=== PATIENT | female | born 1955 | race Caucasian/White ===

== ENCOUNTER → 2019-05-23 | Outpatient (CLI) | payer SELFPAY | PROVIDERS: Family Provider Internal Medicine; PCP Internal Medicine; Visit Provider Internal Medicine Cardiovascular Disease | DX: R94.39 Abnormal result of other cardiovascular function study (principal); Z79.01 Long term (current) use of anticoagulants | CPT/HCPCS: 76770; 80048; 80053; 85025; 85610; 86850; 86900; 86901 ==

== ENCOUNTER 2019-07-01 16:48 | Emergency (ER) | payer MEDICARE, SELFPAY ==
[2019-07-01 16:50] VITALS: BP 163/80; PULSE 61; RESP 14; O2SAT 95; BMI 37.8
--- NOTE | 2019-07-01 17:01 | ECG_ITS ---
Measurements Intervals [place] Rate: 57 P: 27 GA: 166 QRS: 12 QRSD: 103 T: 73 QT: 459 QTc: 449 SINUS BRADYCARDIA POSSIBLE ANTERIOR MYOCARDIAL INFARCTION , PROBABLY OLD [30 ms Q WAVE IN V3/V4, OR R < 0.2 mV IN V4] Compared to ECG 03/08/2019 12:07:22 Sinus rhythm no longer present Myocardial infarct finding still present Electronically Signed On 07-02-2019 18:32:30 [employer] DIRECTOR by Celena Mcgraw M.D. [email or web address]
--- NOTE | 2019-07-01 17:11 | ED_ITS ---
Entered by Brianna Gandara, acting as scribe for HPI - Altered Mental Status General: Chief Complaint: Altered Mental Status Stated Complaint: LOW BLOOD SUGAR Time Seen by Provider: 07/01/19 16:59 Source: patient Mode of arrival: EMS Limitations: altered mental status History of Present Illness: HPI narrative: 63 yo Female presents to ED with complaint of altered mental status. Pt was found down at home with altered mental status. Per EMS, patient's blood sugar was 50 upon their arrival. EMS reports patient complained of chest pains upon waking. When patient arrived to ED, her blood sugar was 55. Pt states she uses insulin to control her diabetes. MD complaint: altered mental status and confusion Onset (ago): unknown Context: diabetes Associated symptoms: Deny depression Treatments prior to arrival: glucose Review of Systems Const: Denies: fever, chills, body aches or change in appetite Eyes: Denies: blurry vision or eye discomfort ENMT: Denies: throat pain or dental pain Card: Denies: chest pain Resp: Denies: shortness of breath GI: Denies: abdominal pain, nausea, vomiting or diarrhea : Denies: painful urination Musc: Denies: neck pain or back pain Skin/Breast: Denies: rash Neuro: Reports: confusion; Denies: headache Psych: Denies: depression Jared/Lymph: Denies: easy bruising All/Imm: Denies: hives PFSH ED PFSH: Statuses (acute, chronic, etc) shown below reflect problem list status as previously entered and may not be historically accurate Medical History (Updated 07/01/19 @ 20:06 by Ramon Hardy MD) CAD (coronary artery disease) (Acute) Diabetes (Acute) HTN (hypertension) (Acute) Myocardial infarction (Acute) UTI (urinary tract infection) (Acute) Surgical History (Updated 07/01/19 @ 17:21 by Brianna Gandara) History of cholecystectomy (Acute) History of knee surgery (Acute) History of tubal ligation (Acute) Social History Smoking and tobacco status: former smoker Physical Exam Const: COMMON NORMALS: no apparent distress, oriented x3 and healthy appearing HENMT: COMMON NORMALS: normocephalic and head/scalp atraumatic HEAD & SCALP: normocephalic and atraumatic Eye: COMMON NORMALS: PERRL and EOMs intact bilaterally PUPIL: Yes PERRL Neck/C-Spine: COMMON NORMALS: full ROM and supple Chest: COMMONS NORMALS: inspection of chest normal and palpation of chest normal Resp: COMMON NORMALS: normal respiratory effort, no retractions, no use of accessory muscles and clear to auscultation bilaterally AUSCULTATION: clear to auscultation bilaterally Cardio: COMMON NORMALS: regular rate, regular rhythm and no murmurs RATE: regular rate RHYTHM: regular rhythm GI: COMMON NORMALS: normal to inspection, nondistended, normoactive bowel sounds, soft to palpation, non-tender and no masses PALPATION: Yes soft Extremity: COMMON NORMALS: normal to inspection and full ROM Neuro: COMMON NORMALS: oriented x3, moves all extremities and no focal motor deficits Psych: COMMON NORMALS: mental status grossly normal, thought process normal and cooperative THOUGHT PROCESS: normal thought process Skin: COMMON NORMALS: no rashes or lesions noted and no wounds GENERAL SKIN EXAM: no rashes or lesions noted Course Vital Signs: Vital signs: Vital Signs Pulse Rate 62 07/01/19 19:30 Respiratory Rate 16 07/01/19 19:30 Blood Pressure 156/84 07/01/19 19:30 Pulse Oximetry 95 07/01/19 19:30 MDM - Altered Mental Status MDM Narrative: Medical decision making narrative: Patient presents here with altered mental status likely due to hypoglycemia. Her blood sugar here is improved and has been stable and she is requesting discharge. Head CT is normal as well and has no signs of stroke. Patient is stable for discharge and is to follow-up with her primary care doctor in 3 to 5 days and return if worsening. Lab Data: Labs: Lab Results 07/01/19 07/01/19 07/01/19 Range/Units 17:45 17:49 19:52 WBC (4.0-10.0) 10^3/ uL RBC (4.1-5.3) 10^6/u L Hgb (11.5-15.3) g/dL Hct (37.0-47.0) % MCV (81-99) fL MCH (28.0-34.0) pg MCHC (30.0-36.0) g/dL RDW (12.1-15.1) % Plt Count (130-400) 10^3/c mm MPV (7.4-10.4) fL Neut % (Auto) % Lymph % (Auto) % Sutter % (Auto) % Eos % (Auto) % Baso % (Auto) % Neut # (Auto) (1.8-7.7) 10^3/u L Lymph # (Auto) (0.8-4.8) 10^3/u L Sutter # (Auto) (0.2-0.9) 10^3/u L Eos # (Auto) (0.0-0.8) 10^3/u L Baso # (Auto) (0.0-0.1) 10^3/u L Nucleated RBC % (a uto) % Nucleated RBCs # /100WBC Sodium 139 (136-145) mmol/L Potassium 3.3 L (3.5-5.1) mmol/L Chloride 101 (98-107) mmol/L Carbon Dioxide 24 (22-29) mmol/L Anion Gap 17.3 (5-19) BUN 27 H (8-23) mg/dL Creatinine 1.7 H (0.5-0.9) mg/dL GFR Calculation 30.6 L (90-130) mL/min Glucose 146 H (74-106) mg/dL POC Glucose 137 197 (70-110) mg/dL Calcium 10.8 H (8.5-10.5) mg/dL Total Bilirubin 0.3 (0.15-1.2) mg/dL AST 15 (0-32) U/L ALT 10 (0-33) U/L Alkaline Phosphata se 89 (35-105) IU/L Total Protein 7.4 (6.6-8.7) g/dL Albumin 4.3 (3.5-5.2) g/dL Globulin 3.1 (1.3-4.6) g/dL 07/01/19 Range/Units 19:57 WBC 7.8 (4.0-10.0) 10^3/ uL RBC 4.20 (4.1-5.3) 10^6/u L Hgb 12.2 (11.5-15.3) g/dL Hct 36.7 L (37.0-47.0) % MCV 87.4 (81-99) fL MCH 29.0 (28.0-34.0) pg MCHC 33.2 (30.0-36.0) g/dL RDW 12.2 (12.1-15.1) % Plt Count 247 (130-400) 10^3/c mm MPV 10.6 H (7.4-10.4) fL Neut % (Auto) 72.8 % Lymph % (Auto) 16.3 % Sutter % (Auto) 6.9 % Eos % (Auto) 2.6 % Baso % (Auto) 1.1 % Neut # (Auto) 5.7 (1.8-7.7) 10^3/u L Lymph # (Auto) 1.3 (0.8-4.8) 10^3/u L Sutter # (Auto) 0.5 (0.2-0.9) 10^3/u L Eos # (Auto) 0.2 (0.0-0.8) 10^3/u L Baso # (Auto) 0.1 (0.0-0.1) 10^3/u L Nucleated RBC % (a uto) 0 % Nucleated RBCs # 0.0 /100WBC Sodium (136-145) mmol/L Potassium (3.5-5.1) mmol/L Chloride (98-107) mmol/L Carbon Dioxide (22-29) mmol/L Anion Gap (5-19) BUN (8-23) mg/dL Creatinine (0.5-0.9) mg/dL GFR Calculation (90-130) mL/min Glucose (74-106) mg/dL POC Glucose (70-110) mg/dL Calcium (8.5-10.5) mg/dL Total Bilirubin (0.15-1.2) mg/dL AST (0-32) U/L ALT (0-33) U/L Alkaline Phosphata se (35-105) IU/L Total Protein (6.6-8.7) g/dL Albumin (3.5-5.2) g/dL Globulin (1.3-4.6) g/dL Imaging Data^: CT Head: Radiologist's impression: [address] [address] [address] Scan Report Signed Patient: SgChynaphil Mcclain #: [id number] : 8Acct#:[id number] Age/Sex: 63 / FADM Date: 07/01/19 Loc: ERRoom/Bed: Attending Dr: Ordering Provider/Ordering MD: Ramon Hardy MD Date of Service: 07/01/19 Procedure(s): CT head wo con* [id number] Accession Number(s): [id number] Report Number: [id number] PROCEDURE INFORMATION: Exam: CT Head Without Contrast Exam date and time: 07/01/2019 6:46 PM Age: 63 years old Clinical indication: Altered mental status/memory loss and syncope and collapse TECHNIQUE: Imaging protocol: Computed tomography of the head without contrast. Total DLP: 866.42 mGy-cm Radiation optimization: All CT scans at this facility use at least one of these dose optimization techniques: automated exposure control; mA and/or kV adjustment per patient size (includes targeted exams where dose is matched to clinical indication); or iterative reconstruction. COMPARISON: CT head wo con* [id number] 03/08/2019 3:01 PM FINDINGS: Brain: Moderate cortical volume loss. Mild stable hypodensities in supratentorial periventricular and subcortical white matter. No intracranial hemorrhage. Ventricles: Normal. No ventriculomegaly. Bones/joints: Unremarkable. No acute fracture. Sinuses: Visualized sinuses are unremarkable. No fluid levels. Mastoid air cells: Visualized mastoid air cells are well aerated. Soft tissues: Unremarkable. CT/CT head wo con* [id number] IMPRESSION: 1. No acute intracranial abnormality. 2. Stable mild microangiopathy. 3. Moderate cortical volume loss. Radiation Dose CTDIVOL = (mGy): DLP = 866.42 (mGy-cm) Dictated By:Mike Stovall Signed By:Mike StovallSigned Date/Time:07/01/191917 DD/ 15 EKG Data^: EKG 1: Attestation: I personally reviewed and interpreted this EKG as follows: EKG interpretation date: 07/01/19 EKG interpretation time: 17:57 Interpretation: Sinus bradycardia heart rate [address] or T wave abnormalities Discharge Plan Discharge Patient Disposition: Home, Self-Care Clinical Impression: Hypoglycemia Altered mental status Qualifiers: Altered mental status type: unspecified Qualified Code(s): R41.82 - Altered mental status, unspecified Condition: Stable Discharge Orders: Discharge Order (Routine); Ordered 07/01/19 Ordered By: Ramon Hardy Referrals: Chandu Kapadia MD [Primary Care Provider] - 4-7 days Discharge Diet: Advance as tolerated Discharge Activity: Resume usual activity Patient Instructions: Diabetic Hypoglycemia (ED) Discharge Date/Time: 07/01/19 20:14 Coding Level of Care Code ED Editing Internship for Chg Fwd Exam Problem Focused The documentation recorded by the Juliocesar mcduffie Carmen, accurately reflects the service I personally performed and the decisions made by Hayley bell Korby, MD Jul 01, 2019 16:48
[2019-07-01 17:53] LABS: Glucose Point of Care 137 mg/dL (70-110)
[2019-07-01 18:10] LABS: Alanine Aminotransferase 10 U/L (0-33); Albumin Level 4.3 g/dL (3.5-5.2); Alkaline Phosphatase 89 IU/L (35-105); Anion Gap 17.3 (5-19); Aspartate Amino Transferase 15 U/L (0-32); Blood Urea Nitrogen 27 mg/dL (8-23); Calcium 10.8 mg/dL (8.5-10.5); Carbon Dioxide 24 mmol/L (22-29); Chloride 101 mmol/L (98-107); Globulin 3.1 g/dL (1.3-4.6); Glomerular Filtration Rate 30.6 mL/min (90-130); Glucose 146 mg/dL (74-106); Potassium 3.3 mmol/L (3.5-5.1); Sodium 139 mmol/L (136-145); Total Bilirubin 0.3 mg/dL (0.15-1.2); Total Protein 7.4 g/dL (6.6-8.7)
[2019-07-01 19:30] VITALS: BP 156/84; PULSE 62; RESP 16; O2SAT 95
[2019-07-01 19:56] LABS: Glucose Point of Care 197 mg/dL (70-110)
[2019-07-01 20:03] LABS: Basophils # 0.1 10^3/uL (0.0-0.1); Basophils % 1.1 %; Eosinophils # 0.2 10^3/uL (0.0-0.8); Eosinophils % 2.6 %; Hematocrit 36.7 % (37.0-47.0); Hemoglobin 12.2 g/dL (11.5-15.3); Lymphocytes # 1.3 10^3/uL (0.8-4.8); Lymphocytes % 16.3 %; Mean Corpuscular HGB Conc 33.2 g/dL (30.0-36.0); Mean Corpuscular Volume 87.4 fL (81-99); Mean Platelet Volume 10.6 fL (7.4-10.4); Monocytes # 0.5 10^3/uL (0.2-0.9); Monocytes % 6.9 %; Neutrophils # 5.7 10^3/uL (1.8-7.7); Neutrophils % 72.8 %; Nucleated Red Blood Cells % 0 %; Platelet Count 247 10^3/cmm (130-400); Red Cell Distribution Width 12.2 % (12.1-15.1); White Blood Count 7.8 10^3/uL (4.0-10.0)
[2019-07-01 20:29] VITALS: BP 193/104; PULSE 68; RESP 20; O2SAT 96
== END 2019-07-01 20:14 | disposition home or self-care (01) ==
PROVIDERS: Emergency Provider Emergency Medicine; Family Provider Internal Medicine; PCP Internal Medicine
DX: E11.649 Type 2 diabetes mellitus with hypoglycemia without coma (principal); I25.10 Atherosclerotic heart disease of native coronary artery without angina pectoris; I10 Essential (primary) hypertension; I25.2 Old myocardial infarction; Z87.891 Personal history of nicotine dependence
CPT/HCPCS: 36415; 36416; 70450; 80053; 82962; 85025; 93005; 99282; 99283; J7799

== ENCOUNTER → 2021-05-18 11:05 | Outpatient (BNVA) | payer MEDICARE, SELFPAY | PROVIDERS: Family Provider Internal Medicine; PCP Internal Medicine; Visit Provider Nurse Practitioner Family | DX: I10 Essential (primary) hypertension (principal); E11.9 Type 2 diabetes mellitus without complications; I25.10 Atherosclerotic heart disease of native coronary artery without angina pectoris | CPT/HCPCS: 80053; 80061; 83036 ==

== ENCOUNTER → 2021-08-18 10:52 | Outpatient (BNVA) | payer MEDICARE, SELFPAY | PROVIDERS: Family Provider Internal Medicine; PCP Nurse Practitioner Family; Visit Provider Nurse Practitioner Family | DX: E11.9 Type 2 diabetes mellitus without complications (principal); E78.00 Pure hypercholesterolemia, unspecified; I10 Essential (primary) hypertension; K21.9 Gastro-esophageal reflux disease without esophagitis; N18.4 Chronic kidney disease, stage 4 (severe) | CPT/HCPCS: 80053; 80061; 83036 ==

== ENCOUNTER → 2021-11-21 08:58 | Outpatient (BNVA) | payer MEDICARE, SELFPAY | PROVIDERS: Family Provider Internal Medicine; PCP Nurse Practitioner Family; Visit Provider Nurse Practitioner Family | DX: E11.9 Type 2 diabetes mellitus without complications (principal); E78.00 Pure hypercholesterolemia, unspecified; I10 Essential (primary) hypertension; N18.4 Chronic kidney disease, stage 4 (severe); I25.10 Atherosclerotic heart disease of native coronary artery without angina pectoris | CPT/HCPCS: 80053; 80061; 83036; 85025 ==

== ENCOUNTER → 2022-02-21 12:24 | Outpatient (BNVA) | payer MEDICARE, SELFPAY | PROVIDERS: Family Provider Internal Medicine; PCP Nurse Practitioner Family; Visit Provider Nurse Practitioner Family | DX: E78.00 Pure hypercholesterolemia, unspecified (principal); N18.4 Chronic kidney disease, stage 4 (severe); I10 Essential (primary) hypertension; E11.9 Type 2 diabetes mellitus without complications; K21.9 Gastro-esophageal reflux disease without esophagitis | CPT/HCPCS: 80053; 80061; 83036 ==

== ENCOUNTER → 2022-05-24 08:14 | Outpatient (BNVA) | payer MEDICARE, SELFPAY | PROVIDERS: Family Provider Internal Medicine; PCP Nurse Practitioner Family; Visit Provider Nurse Practitioner Family | DX: E11.9 Type 2 diabetes mellitus without complications (principal); I10 Essential (primary) hypertension; N18.4 Chronic kidney disease, stage 4 (severe); M10.9 Gout, unspecified; I25.10 Atherosclerotic heart disease of native coronary artery without angina pectoris | CPT/HCPCS: 80053; 80061; 83036; 84550 ==

== ENCOUNTER → 2022-05-30 17:46 | Outpatient (BNVA) | payer MEDICARE, SELFPAY | PROVIDERS: Family Provider Internal Medicine; PCP Nurse Practitioner Family; Visit Provider Nurse Practitioner Family | DX: E87.6 Hypokalemia (principal); N18.4 Chronic kidney disease, stage 4 (severe); I25.10 Atherosclerotic heart disease of native coronary artery without angina pectoris; E78.00 Pure hypercholesterolemia, unspecified; R60.9 Edema, unspecified; I10 Essential (primary) hypertension; J30.9 Allergic rhinitis, unspecified; E11.621 Type 2 diabetes mellitus with foot ulcer; L97.509 Non-pressure chronic ulcer of other part of unspecified foot with unspecified severity; E11.9 Type 2 diabetes mellitus without complications; K21.9 Gastro-esophageal reflux disease without esophagitis | CPT/HCPCS: 80053 ==

== ENCOUNTER → 2022-06-07 14:04 | Outpatient (BNVA) | payer MEDICARE, SELFPAY | PROVIDERS: Family Provider Internal Medicine; PCP Nurse Practitioner Family; Visit Provider Nurse Practitioner Family | DX: E87.6 Hypokalemia (principal); E11.621 Type 2 diabetes mellitus with foot ulcer; L97.509 Non-pressure chronic ulcer of other part of unspecified foot with unspecified severity; R11.2 Nausea with vomiting, unspecified | CPT/HCPCS: 80053; 85025 ==

== ENCOUNTER 2022-06-21 17:25 | Outpatient (CLI) | payer MEDICARE, SELFPAY | END 2022-06-21 17:26 | disposition home or self-care (01) | DX: E11.621 Type 2 diabetes mellitus with foot ulcer (principal); L97.522 Non-pressure chronic ulcer of other part of left foot with fat layer exposed; M79.89 Other specified soft tissue disorders; E11.69 Type 2 diabetes mellitus with other specified complication; M86.8X7 Other osteomyelitis, ankle and foot; I96 Gangrene, not elsewhere classified | CPT/HCPCS: 11044; 73630; 87070; 87077; 87176; 87186; 87205; 99213 ==

== ENCOUNTER → 2022-06-26 13:00 | Outpatient (BNVA) | payer MEDICARE, SELFPAY | PROVIDERS: PCP Nurse Practitioner Family; Visit Provider Thoracic Surgery (Cardiothoracic Vascular Surgery) | DX: I96 Gangrene, not elsewhere classified (principal); E11.621 Type 2 diabetes mellitus with foot ulcer; L97.523 Non-pressure chronic ulcer of other part of left foot with necrosis of muscle | CPT/HCPCS: 11043; 80048 ==

== ENCOUNTER → 2022-07-10 13:31 | Outpatient (BNVA) | payer MEDICARE, SELFPAY | PROVIDERS: PCP Nurse Practitioner Family; Visit Provider Thoracic Surgery (Cardiothoracic Vascular Surgery) | DX: I96 Gangrene, not elsewhere classified (principal); E11.621 Type 2 diabetes mellitus with foot ulcer; L97.523 Non-pressure chronic ulcer of other part of left foot with necrosis of muscle | CPT/HCPCS: 99213; A6446 ==

== ENCOUNTER 2022-07-11 08:27 | Day surgery (SDC) | payer MEDICARE, SELFPAY ==
[2022-07-11] VITALS (9 sets, daily range): BP systolic 138–172; BP diastolic 75–88; PULSE 64–72; RESP 16–22; TEMP 36.7–37.1; O2SAT 93–99; BMI 34.0
--- NOTE | 2022-07-11 09:06 | PC.NURSE ---
pt arrived for surgery day pt was a reschedule account all pre op questions were asked under [id number]
[2022-07-11] MEDS: sodium chloride 0.9% 1,000 ML 30 ML IV ×2 (09:30→11:18)
[2022-07-11 09:39] LABS: Glucose Point of Care 158 mg/dL (70-110)
[2022-07-11 09:46] LABS: Basophils # 0.1 10^3/uL (0.0-0.1); Basophils % 1.4 %; Eosinophils # 0.2 10^3/uL (0.0-0.8); Eosinophils % 2.4 %; Hematocrit 35.5 % (37.0-47.0); Hemoglobin 11.2 g/dL (11.5-15.3); Lymphocytes # 1.9 10^3/uL (0.8-4.8); Lymphocytes % 22.6 %; Mean Corpuscular HGB Conc 31.5 g/dL (30.0-36.0); Mean Corpuscular Hemoglobin 27.6 pg (28.0-34.0); Mean Corpuscular Volume 87.4 fl (81-99); Mean Platelet Volume 10.2 fL (7.4-10.4); Monocytes # 0.6 10^3/uL (0.2-0.9); Monocytes % 7.4 %; Neutrophils # 5.54 10^3/uL (1.8-7.7); Nucleated Red Blood Cells % 0 %; Platelet Count 346 10^3/cmm (130-400); Red Blood Count 4.06 10^6/uL (4.1-5.3); Red Cell Distribution Width 14.4 % (12.1-15.1); White Blood Count 8.4 10^3/uL (4.0-10.0)
--- NOTE | 2022-07-11 10:00 | ANES.PREANE2 ---
Pre-Anesthetic Assessment Height/Weight: Height 1.55 m Weight 81.647 kg Temp Pulse Resp BP Pulse Ox O2 Del Method 98.2 F 66 18 150/80 98 07/11/22 09:22 07/11/22 09:22 07/11/22 09:22 07/11/22 09:22 07/11/22 09:22 07/11/22 09:22 Preop Diagnosis: gangrene left third toe Operation Date: 07/11/22 10:30 Proposed Procedures p amputation of left 3rd toe 35997, E11.621(Left) - Sarbjit Beltrán MD Familial anesthetic complications: None Was Beta Joanne taken within 24 hours: Yes Was Clonidine taken within 24 hours: N/A Last intake: Intake Last Liquid Date 07/10/22 Last Liquid Time 20:00 Last Solid Date 07/10/22 Last Solid Time 20:00 Social No alcohol and No tobacco Exam alert, oriented x 3, clear to auscultation bilaterally and regular rate & rhythm Airway Mallampati: Class III Dentition: other (no teeth) CV/HEM Coronary Artery Disease and Hypertension Chronic Renal Insufficiency Metabolic Diabetes Mellitus and Hyperlipidemia Anesthetic Plan ASA status: 4 Anesthesia: Choice Risk of > 500 ml blood loss (7ml/kg in children): No Medications/Allergies Home Medications Medication Instructions Recorded Confirmed Last Taken Type insulin glargine 100 unit/mL (3 20 unit SUBCUT DAILY 05/23/21 07/11/22 07/10/22 History mL) subcutaneous pen (Lantus Solostar U-100 Insulin) insulin regular human 100 unit/mL 10 unit SUBCUT AC 05/23/21 07/11/22 07/10/22 History (3 mL) subcutaneous pen (Novolin R FlexPen) magnesium oxide 400 mg PO DAILY 05/23/21 07/11/22 07/10/22 History sucralfate 1 gram tablet (Carafate) 1 g PO BID 90 days #180 tabs 05/02/22 07/11/22 07/10/22 Rx potassium chloride 20 mEq 20 meq PO DAILY #30 tabs 05/24/22 07/11/22 07/10/22 Rx tablet,extended release amlodipine 10 mg tablet 10 mg PO DAILY 90 days #90 tabs 05/30/22 07/11/22 07/10/22 Rx atorvastatin 40 mg tablet 40 mg PO DAILY 90 days #90 tabs 05/30/22 07/11/22 07/10/22 Rx clopidogrel 75 mg tablet 75 mg PO DAILY 90 days #90 tabs 05/30/22 07/11/22 07/05/22 Rx furosemide 40 mg tablet 40 mg PO DAILY 90 days #90 tabs 05/30/22 07/11/22 07/10/22 Rx labetalol 100 mg tablet 100 mg PO TID 90 days #270 tabs 05/30/22 07/11/22 07/10/22 Rx loratadine 10 mg tablet 10 mg PO DAILY 90 days #90 tabs 05/30/22 07/11/22 07/10/22 Rx ondansetron HCl 4 mg tablet 4 mg PO Q6H PRN nausea and 06/07/22 07/11/22 07/10/22 Rx vomiting #90 tabs sodium chloride 0.9 % irrigation 1 irrig irrigation DAILY wound 06/21/22 07/11/22 07/10/22 Rx solution (Sterile Saline) care #500 mL Allergies Allergy/AdvReac Type Severity Reaction Status Date / Time codeine Allergy Unknown Verified 07/10/22 17:00 Iodinated Contrast Media Allergy Unknown Verified 07/10/22 17:00 Current Medications Generic Name Dose Route Start Last Admin Trade Name Freq PRN Reason Stop Dose Admin Sodium Chloride 1,000 mls @ 30 mls/hr 07/11/22 09:00 07/11/22 09:30 Sodium Chloride 0.9% IV 07/12/22 08:59 30 mls/hr .Q24H CRYSTAL Administration PFSH Anesthesia Medical History CAD (coronary artery disease) Diabetes HTN (hypertension) Myocardial infarction UTI (urinary tract infection) Surgical History History of cholecystectomy History of knee surgery History of tubal ligation Social History Smoking and tobacco status: never smoked Data Anesthesia 07/11/22 09:26 07/11/22 09:26 Short CBC 07/11/22 Range/Units 09:26 WBC 8.4 (4.0-10.0) 10^3/uL Hgb 11.2 L (11.5-15.3) g/dL Hct 35.5 L (37.0-47.0) % MCV 87.4 (81-99) fl Plt Count 346 (130-400) 10^3/cmm Neut % (Auto) 66.0 % Neut # (Auto) 5.54 (1.8-7.7) 10^3/uL Cardiac Studies: No Data to Display
[2022-07-11 10:07] LABS: Anion Gap 17.5 (5-19); Blood Urea Nitrogen 41 mg/dL (8-23); Carbon Dioxide 28 mmol/L (22-29); Chloride 97 mmol/L (98-107); Glomerular Filtration Rate 21.3 mL/min (90-130); Glucose 158 mg/dL (65-115); Osmolality Calculated 301 mOsm/kg (285-295); Potassium 3.5 mmol/L (3.5-5.1); Sodium 139 mmol/L (136-145)
--- NOTE | 2022-07-11 10:57 | W.PM.OPSUD ---
Surgery/Procedure H&P Update DATE OF PROCEDURE: July 11, 2022 DATE H&P PERFORMED: 06/26/22 H&P UPDATE INFORMATION: I have reviewed H&P completed within last 30 days, I have examined patient prior to procedure and No changes to prior documentation PREOP DIAGNOSIS: gangrene left third toe PLANNED PROCEDURE: Operation Date: 07/11/22 10:30 Proposed Procedures p amputation of left 3rd toe 01875, E11.621(Left) - Sarbjit Beltrán MD
[2022-07-11 11:03] LABS: Urine Color Yellow (Yellow)
[2022-07-11 11:04] LABS: Bilirubin Urine Neg (Negative); Blood Urine Neg (Negative); Glucose Urine UA Norm (Normal); Ketones Urine Negative (Negative); Nitrate Urine Negative (Negative); Protein Urine 1+ (Negative); Specific Gravity, Urine 1.005 (1.005-1.030); Urine Appearance Hazy (CLEAR); pH Urine 7 (5-7)
[2022-07-11 11:05] LABS: Add Urine Microscopic? YES; Leukocyte Esterase Urine 2+ (Negative); Urobilinogen Urine Neg (Negative)
[2022-07-11 11:06] LABS: RBC Urine RARE /hpf (0-2); WBC Urine 0-4 /hpf (0-5)
[2022-07-11 11:07] LABS: Add Urine Culture? No
[2022-07-11] MEDS: ceFAZolin 2,000 MG in sodium chloride 0.9% (plus) 50 ML 100 MG IV (11:24)
[2022-07-11] MEDS: ondansetron 4 MG Tablet PO (14:16)
--- NOTE | 2022-07-11 14:25 | PM.OP ---
Operative Report Date of procedure: July 11, 2022 Pre-op diagnosis: Preop Diagnosis severe osteomyelitis left third toe Post-op diagnosis: same Procedure done: Amputation left third toe Specimens removed/disposition: Left third toe Articular surface of head left third metatarsal sent for culture Surgeon: Sarbjit Beltrán Anesthesia: MAC and Local Complications: None Findings: Destruction of osseous structures of the left third toe also involving the articular surface of the left third metatarsal Condition: stable Disposition: same day Brief History: Ms. Bettencourt is a 66-year-old female who was referred to our service for wound to the left third toe. She had renal insufficiency and unknown trauma mechanism. X-rays reveal near complete destruction of the bones of the left third toe consistent with severe osteomyelitis. Given the amount of distraction, I have recommended amputation. She was in agreement. Appropriate consents have been reviewed and signed. Procedure: Ms. Bettencourt was taken to the operating room theater carefully position on the OR table. Appropriate timeout was completed. She received IV conscious sedation and her left foot was sterilely prepped and draped. Digital block with lidocaine without epinephrine was administered to the left third toe. Circumferential incision was then made with a #15 scalpel blade down to the joint space between the toe and metatarsal surface. Toe was removed intact and upon inspection there was involvement of the articular surface of the distal margins of the third metatarsal. This underwent direct sharp resection utilizing a bone rongeur. This material from the bone was collected for separate culture. Once we felt we had reached adequate bone without sasha involvement, hemostasis was controlled with meticulous use of electrocautery. Wound was irrigated with large amounts of antibiotic solution. Because of the involvement of the distal aspect of the left third metatarsal, I do not feel comfortable attempting primary closure and recommended wet-to-dry dressing changes as I am also fearful she will be ambulating more than desired. After dressings replaced was awakened from IV conscious sedation and then transferred to Outpatient Surgery department. I did prison classification counselor her as to her operative findings. She will be discharged home today for follow-up and wound care services. We will be contacting her tomorrow to confirm these arrangements and assist with appropriate wound care instructions.
--- NOTE | 2022-07-11 16:07 | ANE.PACU2 ---
Inpatient post-anesthesia follow up: Airway intact: Yes Vital signs: Temperature 98.1 F Pulse Rate 64 Respiratory Rate 18 Blood Pressure 138/88 Pulse Oximetry 98 Oxygen Delivery Me thod Room Air Oxygen Flow Rate 6 Fraction of Inspir ed Oxygen Hydration adequate: Yes Nausea and vomiting: No Pain level: 1 Mental status: Baseline
== END 2022-07-11 14:40 | disposition home or self-care (01) ==
PROVIDERS: PCP Nurse Practitioner Family; Visit Provider Thoracic Surgery (Cardiothoracic Vascular Surgery)
PROC: (CPT 28820; principal; 2022-07-11 10:20)
DX: M86.8X7 Other osteomyelitis, ankle and foot (principal); I25.10 Atherosclerotic heart disease of native coronary artery without angina pectoris; I10 Essential (primary) hypertension; E78.5 Hyperlipidemia, unspecified; E11.9 Type 2 diabetes mellitus without complications; Z79.4 Long term (current) use of insulin; I25.2 Old myocardial infarction
CPT/HCPCS: 28820; 36415; 36416; 80048; 81001; 82962; 85025; 87070; 87077; 87176; 87186; 87205; 88305; 88311; J0690; J2704; J3010; J7030; Q0162

== ENCOUNTER 2022-07-17 13:32 | Outpatient (CLI) | payer MEDICARE, SELFPAY ==
[2022-07-17 15:02] LABS: Anion Gap 15.4 (5-19); Blood Urea Nitrogen 43 mg/dL (8-23); Calcium 10.1 mg/dL (8.5-10.5); Carbon Dioxide 30 mmol/L (22-29); Chloride 100 mmol/L (98-107); Glomerular Filtration Rate 25.1 mL/min (90-130); Glucose 93 mg/dL (65-115); Osmolality Calculated 305 mOsm/kg (285-295); Potassium 3.4 mmol/L (3.5-5.1); Sodium 142 mmol/L (136-145)
== END 2022-07-17 13:33 | disposition home or self-care (01) ==
LOC: LAB 13:37
PROVIDERS: PCP Nurse Practitioner Family; Visit Provider Thoracic Surgery (Cardiothoracic Vascular Surgery)
DX: E11.621 Type 2 diabetes mellitus with foot ulcer (principal); L97.509 Non-pressure chronic ulcer of other part of unspecified foot with unspecified severity
CPT/HCPCS: 11042; 36415; 80048

== ENCOUNTER → 2022-07-24 15:14 | Outpatient (BNVA) | payer MEDICARE, SELFPAY | PROVIDERS: PCP Nurse Practitioner Family; Visit Provider Thoracic Surgery (Cardiothoracic Vascular Surgery) | DX: I96 Gangrene, not elsewhere classified (principal); E11.621 Type 2 diabetes mellitus with foot ulcer; L97.522 Non-pressure chronic ulcer of other part of left foot with fat layer exposed | CPT/HCPCS: 11042 ==

== ENCOUNTER → 2022-07-31 13:56 | Outpatient (BNVA) | payer MEDICARE, SELFPAY | PROVIDERS: PCP Nurse Practitioner Family; Visit Provider Thoracic Surgery (Cardiothoracic Vascular Surgery) | DX: I96 Gangrene, not elsewhere classified (principal); E11.621 Type 2 diabetes mellitus with foot ulcer; L97.522 Non-pressure chronic ulcer of other part of left foot with fat layer exposed | CPT/HCPCS: 11042; A6210 ==

== ENCOUNTER → 2022-08-04 12:42 | Outpatient (BNVA) | payer MEDICARE, SELFPAY | PROVIDERS: PCP Nurse Practitioner Family; Visit Provider Nurse Practitioner Family | DX: E78.00 Pure hypercholesterolemia, unspecified (principal); N18.4 Chronic kidney disease, stage 4 (severe); I10 Essential (primary) hypertension; E11.9 Type 2 diabetes mellitus without complications; I25.10 Atherosclerotic heart disease of native coronary artery without angina pectoris; K21.9 Gastro-esophageal reflux disease without esophagitis; E87.6 Hypokalemia | CPT/HCPCS: 80053; 80061 ==

== ENCOUNTER → 2022-08-07 14:57 | Outpatient (BNVA) | payer MEDICARE, SELFPAY | PROVIDERS: PCP Nurse Practitioner Family; Visit Provider Thoracic Surgery (Cardiothoracic Vascular Surgery) | DX: I96 Gangrene, not elsewhere classified (principal); E11.621 Type 2 diabetes mellitus with foot ulcer; L97.522 Non-pressure chronic ulcer of other part of left foot with fat layer exposed | CPT/HCPCS: 11042 ==

== ENCOUNTER → 2022-08-14 15:45 | Outpatient (BNVA) | payer MEDICARE, SELFPAY | PROVIDERS: PCP Nurse Practitioner Family; Visit Provider Thoracic Surgery (Cardiothoracic Vascular Surgery) | DX: E11.621 Type 2 diabetes mellitus with foot ulcer (principal); L97.522 Non-pressure chronic ulcer of other part of left foot with fat layer exposed | CPT/HCPCS: 99212 ==

== ENCOUNTER → 2022-11-08 13:03 | Outpatient (BNVA) | payer MEDICARE, SELFPAY | PROVIDERS: PCP Nurse Practitioner Family; Visit Provider Nurse Practitioner Family | DX: E11.9 Type 2 diabetes mellitus without complications (principal); E78.00 Pure hypercholesterolemia, unspecified; I10 Essential (primary) hypertension; K21.9 Gastro-esophageal reflux disease without esophagitis; N18.4 Chronic kidney disease, stage 4 (severe); I25.10 Atherosclerotic heart disease of native coronary artery without angina pectoris; E11.621 Type 2 diabetes mellitus with foot ulcer; L97.509 Non-pressure chronic ulcer of other part of unspecified foot with unspecified severity | CPT/HCPCS: 80053; 80061; 83036 ==

== ENCOUNTER → 2023-02-07 11:46 | Outpatient (BNVA) | payer MEDICARE, SELFPAY | PROVIDERS: PCP Nurse Practitioner Family; Visit Provider Nurse Practitioner Family | DX: G89.29 Other chronic pain (principal); N18.4 Chronic kidney disease, stage 4 (severe); I25.10 Atherosclerotic heart disease of native coronary artery without angina pectoris; E78.00 Pure hypercholesterolemia, unspecified; K21.9 Gastro-esophageal reflux disease without esophagitis; R60.9 Edema, unspecified; I10 Essential (primary) hypertension; E11.9 Type 2 diabetes mellitus without complications; J30.9 Allergic rhinitis, unspecified; R11.2 Nausea with vomiting, unspecified; E11.621 Type 2 diabetes mellitus with foot ulcer; L97.509 Non-pressure chronic ulcer of other part of unspecified foot with unspecified severity | CPT/HCPCS: 80053; 80061; 83036; 84550 ==

== ENCOUNTER → 2023-05-09 11:58 | Outpatient (BNVA) | payer MEDICARE, SELFPAY | PROVIDERS: PCP Nurse Practitioner Family; Visit Provider Nurse Practitioner Family | DX: E78.00 Pure hypercholesterolemia, unspecified (principal); G89.29 Other chronic pain; E11.9 Type 2 diabetes mellitus without complications; N18.4 Chronic kidney disease, stage 4 (severe); I10 Essential (primary) hypertension; M10.9 Gout, unspecified | CPT/HCPCS: 80053; 80061; 83036; 84550 ==

== ENCOUNTER → 2023-08-08 08:29 | Outpatient (BNVA) | payer MEDICARE, SELFPAY | PROVIDERS: PCP Nurse Practitioner Family; Visit Provider Nurse Practitioner Family | DX: G89.29 Other chronic pain (principal); N18.4 Chronic kidney disease, stage 4 (severe); I10 Essential (primary) hypertension; I25.118 Atherosclerotic heart disease of native coronary artery with other forms of angina pectoris; K21.9 Gastro-esophageal reflux disease without esophagitis; E78.00 Pure hypercholesterolemia, unspecified; E11.621 Type 2 diabetes mellitus with foot ulcer; L97.509 Non-pressure chronic ulcer of other part of unspecified foot with unspecified severity | CPT/HCPCS: 80053; 80061; 83036; 85025 ==

== ENCOUNTER 2023-09-08 16:13 | Inpatient (IN) | payer MEDICARE, SELFPAY ==
[2023-09-08] VITALS (10 sets, daily range): BP systolic 123–155; BP diastolic 66–88; PULSE 69–85; RESP 16–18; TEMP 36.6–36.7; O2SAT 91–98; BMI 31.1
--- NOTE | 2023-09-08 16:15 | XRR_ITS ---
PROCEDURE INFORMATION: Exam: XR Right Hip Exam date and time: 09/08/2023 5:52 PM Age: 67 years old Clinical indication: Injury or trauma; Other: RT hip pain; Patient HX: RT lower ext pain post fall; RT hip FX TECHNIQUE: Imaging protocol: Radiologic exam of the right hip. Views: 1 view hip with pelvis when performed. COMPARISON: CT abdomen pelvis wo con [id number] 01/31/2019 1:35 PM FINDINGS: Bones/joints: Acute impacted/displaced femoral neck fracture on the right. Pelvic ring is grossly intact. Sacrum and coccyx are partially obscured by bowel gas/stool. Soft tissues: No gross soft tissue abnormality. XR/XR hip RT 2-3V wo/w pel* [id number] IMPRESSION: 1. Acute impacted/displaced femoral neck fracture on the right.
--- NOTE | 2023-09-08 17:39 | W.ED.EXTPRO ---
Documented by User: SHIVANI Naik 09/08/23 20:13 HPI - Extremity Problem General: Chief complaint: Extremity Injury, Lower Stated complaint: fall, right side hip pain Time Seen by Provider: 09/08/23 17:39 History of Present Illness: 67-year-old female comes in today for complaints of injury to the right hip. About 12:00 noon today patient was getting into her vehicle after eating at [employer] when she slipped and fell landing on her right hip. Patient was able to get back up into the vehicle but her hip remained in pain and discomfort. Patient did have to bear weight onto her significant other and able to stand. Patient has a history of diabetes mellitus, high blood pressure, valvular heart disease, chronic kidney disease, insulin use since 2019, allergies to iodine and codeine. Primary care is Preeti Silva. Last meal was noon today. Review of Systems General: Reports: 10 or more systems reviewed and unremarkable except in HPI and below Musc: Reports: joint pain (Right hip) [facility] ED PFSH: Medical History HTN (hypertension) Diabetes Myocardial infarction UTI (urinary tract infection) CAD (coronary artery disease) Surgical History History of knee surgery History of tubal ligation History of cholecystectomy Social History Smoking and tobacco/nicotine status: never used tobacco/nicotine Physical Exam Const: COMMON NORMALS: alert HENMT: COMMON NORMALS: normocephalic and atraumatic HEAD & SCALP: normocephalic and atraumatic Neck/C-Spine: COMMON NORMALS: full ROM Chest: COMMONS NORMALS: normal palpation of entire chest wall Resp: COMMON NORMALS: normal respiratory effort and clear to auscultation bilaterally AUSCULTATION: clear to auscultation bilaterally Cardio: COMMON NORMALS: regular rate and regular rhythm RATE: regular rate RHYTHM: regular rhythm GI: COMMON NORMALS: Soft to palpation and non-tender PALPATION: Yes Soft to palpation Back/Pelvis: COMMON NORMALS: thoracic and lumbar spine normal to inspection Extremity: RIGHT LOWER EXTREMITY: Yes hip joint (Tenderness, decreased range of motion) Neuro: SENSORIUM/ORIENTATION: Yes alert Skin: COMMON NORMALS: turgor normal GENERAL SKIN EXAM: turgor normal Course Vital Signs: Vital signs: Vital Signs Temperature 98 F 09/08/23 23:53 Pulse Rate 70 09/08/23 23:53 Respiratory Rate 17 09/09/23 01:51 Blood Pressure 123/67 09/08/23 23:53 Pulse Oximetry 94 09/09/23 01:51 Oxygen Delivery Me thod Nasal Cannula 09/08/23 23:53 Oxygen Flow Rate 4 09/08/23 20:30 MDM - Extremity (Nontraumatic) Medical Decision Making 67-year-old female comes in today for injury to the right hip. On exam patient appears nontoxic. Patient reports hip pain after a fall onto the hip this afternoon. Patient was unable to bear full weight on the hip. Distal pulses and sensation are intact. Patient does report a numbness to the extremity. Vital signs are normal. Differential diagnosis includes fracture, contusion, sprain. X-ray notes a nondisplaced femoral neck fracture. Reviewed exam with Dr. Fabian who reported understanding and recommended admission to hospitalist for diabetes and blood pressure care with plan to do surgery tomorrow. 1923, discussed patient with Dr. Givens who accepted patient to hospital services for medical management. Lab Data 09/08/23 18:55 09/08/23 18:55 Radiology Impressions Hip/Pelvis X-Ray 09/08/23 16:15 IMPRESSION: 1. Acute impacted/displaced femoral neck fracture on the right. Chest X-Ray 09/08/23 18:04 IMPRESSION: 1. No acute cardiopulmonary abnormality. Hip CT 09/08/23 18:21 IMPRESSION: 1. Acute impacted/displaced intracapsular femoral neck fracture on the right. 2. Air within the bladder raising the question of recent catheterization or gas-forming infection. Knee X-Ray 09/08/23 18:21 IMPRESSION: 1. Lateral tibial plateau fracture with associated joint effusion. Correlation with CT is recommended for further detail. Laboratory Results WBC 11.07 10^3/uL (3.29-11.43) 09/08/23 18:55 RBC 4.20 10^6/uL (3.85-5.65) 09/08/23 18:55 Hgb 12.90 g/dL (11.27-16.99) 09/08/23 18:55 Hct 36.7 % (36-47) 09/08/23 18:55 MCV 87.4 fl (85-98) 09/08/23 18:55 MCH 30.7 pg (27-33) 09/08/23 18:55 MCHC 35.1 g/dL (30-55) 09/08/23 18:55 RDW 12.6 % (12.1-15.1) 09/08/23 18:55 Plt Count 219 10^3/cmm (157-399) 09/08/23 18:55 MPV 10.6 fL (7.4-10.4) H 09/08/23 18:55 Neut % (Auto) 80.4 % 09/08/23 18:55 Lymph % (Auto) 9.7 % 09/08/23 18:55 [place] % (Auto) 8.9 % 09/08/23 18:55 Eos % (Auto) 0.2 % 09/08/23 18:55 Baso % (Auto) 0.4 % 09/08/23 18:55 Neut # (Auto) 8.91 10^3/uL (1.8-7.7) H 09/08/23 18:55 Lymph # (Auto) 1.1 10^3/uL (0.8-4.8) 09/08/23 18:55 [place] # (Auto) 1.0 10^3/uL (0.2-0.9) H 09/08/23 18:55 Eos # (Auto) 0.0 10^3/uL (0.0-0.8) 09/08/23 18:55 Baso # (Auto) 0.0 10^3/uL (0.0-0.1) 09/08/23 18:55 Nucleated RBC % (auto) 0 % 09/08/23 18:55 Nucleated RBCs # 0.0 /100WBC 09/08/23 18:55 Sodium 136 mmol/L (136-145) 09/08/23 18:55 Potassium 2.8 mmol/L (3.5-5.1) L* 09/08/23 18:55 Chloride 92 mmol/L (98-107) L 09/08/23 18:55 Carbon Dioxide 29 mmol/L (22-29) 09/08/23 18:55 Anion Gap 17.8 (5-19) 09/08/23 18:55 BUN 64 mg/dL (8-23) H 09/08/23 18:55 Creatinine 3.1 mg/dL (0.5-0.9) H 09/08/23 18:55 GFR Calculation 15.1 mL/min (90-130) L 09/08/23 18:55 Glucose 127 mg/dL (65-115) H 09/08/23 18:55 Estimat Average Glucose 163 09/08/23 18:55 Hemoglobin A1c 7.3 % (4.0-6.0) H 09/08/23 18:55 Calculated Osmolality 302 mOsm/kg (285-295) H 09/08/23 18:55 Calcium 9.9 mg/dL (8.5-10.5) 09/08/23 18:55 Total Bilirubin 0.7 mg/dL (0.15-1.2) 09/08/23 18:55 AST 12 U/L (0-32) 09/08/23 18:55 ALT 8 U/L (0-33) 09/08/23 18:55 Alkaline Phosphatase 92 U/L (35-105) 09/08/23 18:55 Creatine Kinase 76 U/L (26-192) 09/08/23 18:55 Troponin T Baseline 31 ng/L (0-10) H 09/08/23 18:55 NT-Pro-B Natriuret Pep 324 pg/mL (0-125) H 09/08/23 18:55 Total Protein 6.8 g/dL (6.6-8.7) 09/08/23 18:55 Albumin 4.3 g/dL (3.5-5.2) 09/08/23 18:55 Globulin 2.5 g/dL (1.3-4.6) 09/08/23 18:55 Triglycerides 81 mg/dL (0-150) 09/08/23 18:55 Cholesterol 133 mg/dL (0-200) 09/08/23 18:55 LDL Cholesterol, Calc 58 mg/dL (50-129) 09/08/23 18:55 HDL Cholesterol 59 mg/dL (60-100) L 09/08/23 18:55 LDL/HDL Ratio 0.98 RATIO (0.00-3.22) 09/08/23 18:55 Cholesterol/HDL Ratio 2.25 mg/dL (0.0-4.40) 09/08/23 18:55 Procalcitonin 0.19 ng/mL (0-0.5) 09/08/23 18:55 TSH 1.84 uIU/mL (0.27-4.20) 09/08/23 18:55 All radiology interpretation(s) finalized by discharge EKG Data EKG 1: EKG interpretation date: 09/08/23 EKG interpretation time: 18:31 Prior EKG tracings: not available for review Interpretation: EKG shows a sinus rhythm with a regular rate with no ST elevation. Rate is at 78 bpm. Patient does have an occasional PAC. No prior exam was available for comparison. Mild artifact was noted on the EKG. Computer generated interpretation: Sinus rhythm with occasional supraventricular premature complex, nonspecific T wave abnormality, borderline EKG, unconfirmed report. Discharge Plan Discharge Patient Disposition: Admitted As Inpatient Admit Provider: Rui Givens Clinical Impression: Femoral neck fracture Qualifiers: Encounter type: initial encounter Fracture type: closed Laterality: right Qualified Code(s): S72.001A - Fracture of unspecified part of neck of right femur, initial encounter for closed fracture Fall Qualifiers: Encounter type: initial encounter Qualified Code(s): W19.XXXA - Unspecified fall, initial encounter Closed fracture of tibial plateau Qualifiers: Encounter type: initial encounter Laterality: right Qualified Code(s): S82.141A - Displaced bicondylar fracture of right tibia, initial encounter for closed fracture Condition: Stable Coding Level of Care Code ED Driver Starting Gate for Chg Fwd Documented by User: Yuniel Jackman DO 09/09/23 02:17 HPI - Extremity Problem General: Chief complaint: Extremity Injury, Lower Stated complaint: fall, right side hip pain Time Seen by Provider: 09/08/23 17:39 PFSH ED PFSH: Medical History HTN (hypertension) Diabetes Myocardial infarction UTI (urinary tract infection) CAD (coronary artery disease) Surgical History History of knee surgery History of tubal ligation History of cholecystectomy Social History Smoking and tobacco/nicotine status: never used tobacco/nicotine Course Vital Signs: Vital signs: Vital Signs Temperature 98 F 09/08/23 23:53 Pulse Rate 70 09/08/23 23:53 Respiratory Rate 17 09/09/23 01:51 Blood Pressure 123/67 09/08/23 23:53 Pulse Oximetry 94 09/09/23 01:51 Oxygen Delivery Me thod Nasal Cannula 09/08/23 23:53 Oxygen Flow Rate 4 09/08/23 20:30 MDM - Extremity (Nontraumatic) Medical Decision Making 67-year-old female comes in today for injury to the right hip. On exam patient appears nontoxic. Patient reports hip pain after a fall onto the hip this afternoon. Patient was unable to bear full weight on the hip. Distal pulses and sensation are intact. Patient does report a numbness to the extremity. Vital signs are normal. Differential diagnosis includes fracture, contusion, sprain. X-ray notes a nondisplaced femoral neck fracture. Reviewed exam with Dr. Fabian who reported understanding and recommended admission to hospitalist for diabetes and blood pressure care with plan to do surgery tomorrow. This patient was originally seen by SHIVANI Tamayo.? I agree with his history, evaluation, and treatment. 1923, discussed patient with Dr. Givens who accepted patient to hospital services for medical management. Lab Data 09/08/23 18:55 09/08/23 18:55 Radiology Impressions Hip/Pelvis X-Ray 09/08/23 16:15 IMPRESSION: 1. Acute impacted/displaced femoral neck fracture on the right. Chest X-Ray 09/08/23 18:04 IMPRESSION: 1. No acute cardiopulmonary abnormality. Hip CT 09/08/23 18:21 IMPRESSION: 1. Acute impacted/displaced intracapsular femoral neck fracture on the right. 2. Air within the bladder raising the question of recent catheterization or gas-forming infection. Knee X-Ray 09/08/23 18:21 IMPRESSION: 1. Lateral tibial plateau fracture with associated joint effusion. Correlation with CT is recommended for further detail. Laboratory Results WBC 11.07 10^3/uL (3.29-11.43) 09/08/23 18:55 RBC 4.20 10^6/uL (3.85-5.65) 09/08/23 18:55 Hgb 12.90 g/dL (11.27-16.99) 09/08/23 18:55 Hct 36.7 % (36-47) 09/08/23 18:55 MCV 87.4 fl (85-98) 09/08/23 18:55 MCH 30.7 pg (27-33) 09/08/23 18:55 MCHC 35.1 g/dL (30-55) 09/08/23 18:55 RDW 12.6 % (12.1-15.1) 09/08/23 18:55 Plt Count 219 10^3/cmm (157-399) 09/08/23 18:55 MPV 10.6 fL (7.4-10.4) H 09/08/23 18:55 Neut % (Auto) 80.4 % 09/08/23 18:55 Lymph % (Auto) 9.7 % 09/08/23 18:55 [place] % (Auto) 8.9 % 09/08/23 18:55 Eos % (Auto) 0.2 % 09/08/23 18:55 Baso % (Auto) 0.4 % 09/08/23 18:55 Neut # (Auto) 8.91 10^3/uL (1.8-7.7) H 09/08/23 18:55 Lymph # (Auto) 1.1 10^3/uL (0.8-4.8) 09/08/23 18:55 [place] # (Auto) 1.0 10^3/uL (0.2-0.9) H 09/08/23 18:55 Eos # (Auto) 0.0 10^3/uL (0.0-0.8) 09/08/23 18:55 Baso # (Auto) 0.0 10^3/uL (0.0-0.1) 09/08/23 18:55 Nucleated RBC % (auto) 0 % 09/08/23 18:55 Nucleated RBCs # 0.0 /100WBC 09/08/23 18:55 Sodium 136 mmol/L (136-145) 09/08/23 18:55 Potassium 2.8 mmol/L (3.5-5.1) L* 09/08/23 18:55 Chloride 92 mmol/L (98-107) L 09/08/23 18:55 Carbon Dioxide 29 mmol/L (22-29) 09/08/23 18:55 Anion Gap 17.8 (5-19) 09/08/23 18:55 BUN 64 mg/dL (8-23) H 09/08/23 18:55 Creatinine 3.1 mg/dL (0.5-0.9) H 09/08/23 18:55 GFR Calculation 15.1 mL/min (90-130) L 09/08/23 18:55 Glucose 127 mg/dL (65-115) H 09/08/23 18:55 Estimat Average Glucose 163 09/08/23 18:55 Hemoglobin A1c 7.3 % (4.0-6.0) H 09/08/23 18:55 Calculated Osmolality 302 mOsm/kg (285-295) H 09/08/23 18:55 Calcium 9.9 mg/dL (8.5-10.5) 09/08/23 18:55 Total Bilirubin 0.7 mg/dL (0.15-1.2) 09/08/23 18:55 AST 12 U/L (0-32) 09/08/23 18:55 ALT 8 U/L (0-33) 09/08/23 18:55 Alkaline Phosphatase 92 U/L (35-105) 09/08/23 18:55 Creatine Kinase 76 U/L (26-192) 09/08/23 18:55 Troponin T Baseline 31 ng/L (0-10) H 09/08/23 18:55 NT-Pro-B Natriuret Pep 324 pg/mL (0-125) H 09/08/23 18:55 Total Protein 6.8 g/dL (6.6-8.7) 09/08/23 18:55 Albumin 4.3 g/dL (3.5-5.2) 09/08/23 18:55 Globulin 2.5 g/dL (1.3-4.6) 09/08/23 18:55 Triglycerides 81 mg/dL (0-150) 09/08/23 18:55 Cholesterol 133 mg/dL (0-200) 09/08/23 18:55 LDL Cholesterol, Calc 58 mg/dL (50-129) 09/08/23 18:55 HDL Cholesterol 59 mg/dL (60-100) L 09/08/23 18:55 LDL/HDL Ratio 0.98 RATIO (0.00-3.22) 09/08/23 18:55 Cholesterol/HDL Ratio 2.25 mg/dL (0.0-4.40) 09/08/23 18:55 Procalcitonin 0.19 ng/mL (0-0.5) 09/08/23 18:55 TSH 1.84 uIU/mL (0.27-4.20) 09/08/23 18:55 Discharge Plan Discharge Patient Disposition: Admitted As Inpatient Admit Provider: Rui Givens Clinical Impression: Femoral neck fracture Qualifiers: Encounter type: initial encounter Fracture type: closed Laterality: right Qualified Code(s): S72.001A - Fracture of unspecified part of neck of right femur, initial encounter for closed fracture Fall Qualifiers: Encounter type: initial encounter Qualified Code(s): W19.XXXA - Unspecified fall, initial encounter Closed fracture of tibial plateau Qualifiers: Encounter type: initial encounter Laterality: right Qualified Code(s): S82.141A - Displaced bicondylar fracture of right tibia, initial encounter for closed fracture Condition: Stable Coding Level of Care Code ED Driver Starting Gate for Sindi Mi
--- NOTE | 2023-09-08 18:04 | ECG_ITS ---
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 Measurements Intervals [place] Rate: 78 P: 56 [place]: 182 QRS: 37 QRSD: 87 T: 85 QT: 314 QTc: 359 Interpretive Statements SINUS RHYTHM WITH OCCASIONAL SUPRAVENTRICULAR PREMATURE COMPLEXES NONSPECIFIC T-WAVE ABNORMALITY Compared to ECG 07/01/2019 17:57:42 T-wave abnormality now present Sinus bradycardia no longer present Myocardial infarct finding no longer present Electronically Signed On 09-09-2023 11:09:41 CDT by Santos Christian M.D. [id number]
--- NOTE | 2023-09-08 18:04 | XRR_ITS ---
PROCEDURE INFORMATION: Exam: XR Chest Exam date and time: 09/08/2023 6:04 PM Age: 67 years old Clinical indication: Pre-operative exam; Respiratory screening exam; Other: None; Patient HX: HTN; Cough; Pre op high risk procedure TECHNIQUE: Imaging protocol: Radiologic exam of the chest. Views: 1 view. COMPARISON: CR XR chest 1V [id number] 03/08/2019 12:53 PM FINDINGS: Lungs: No focal consolidation. Pleural spaces: No evidence of pneumothorax. No evidence of pleural effusion. Heart/Mediastinum: Cardiomediastinal silhouette is within normal limits. Bones/joints: No evidence of acute osseous abnormality. XR/XR chest 1V portable [id number] IMPRESSION: 1. No acute cardiopulmonary abnormality.
--- NOTE | 2023-09-08 18:21 | XRR_ITS ---
PROCEDURE INFORMATION: Exam: XR Right Knee Exam date and time: 09/08/2023 6:32 PM Age: 67 years old Clinical indication: Injury or trauma; Fall; Sprain or strain; Patella or knee; Right; Additional info: Fall, pain TECHNIQUE: Imaging protocol: Radiologic exam of the right knee. Views: 3 views. COMPARISON: CT hip RT wo con* [id number] 09/08/2023 6:30 PM FINDINGS: Bones/joints: Lateral tibial plateau fracture with associated joint effusion. Correlation with CT is recommended for further detail. Soft tissues: No gross soft tissue abnormality. XR/XR knee RT 3V* [id number] IMPRESSION: 1. Lateral tibial plateau fracture with associated joint effusion. Correlation with CT is recommended for further detail.
--- NOTE | 2023-09-08 18:21 | CTR_ITS ---
PROCEDURE INFORMATION: Exam: CT Right Lower Extremity Without Contrast, Hip Exam date and time: 09/08/2023 6:30 PM Age: 67 years old Clinical indication: Pain; Hip; Right; Additional info: Fracture TECHNIQUE: Imaging protocol: CT of the right lower extremity without contrast was performed. Exam focused on the hip. Radiation optimization: All CT scans at this facility use at least one of these dose optimization techniques: automated exposure control; mA and/or kV adjustment per patient size (includes targeted exams where dose is matched to clinical indication); or iterative reconstruction. COMPARISON: CR (PELVIS, ) 09/08/2023 5:52 PM RADIATION DOSE METRICS: Total DLP (mGy-cm): 353.94 FINDINGS: Bones/joints: Acute complete mildly displaced and impacted fracture of the right femoral neck involving the subcapital and transcervical regions. The intertrochanteric and visualized subtrochanteric regions are intact. Soft tissues: Mild superficial soft tissue edema/contusion of the lateral aspect of the hip. No evidence of fluid collection or hematoma. There is air within the bladder raising the question of recent catheterization or gas-forming infection. CT/CT hip RT wo con* [id number] IMPRESSION: 1. Acute impacted/displaced intracapsular femoral neck fracture on the right. 2. Air within the bladder raising the question of recent catheterization or gas-forming infection.
[2023-09-08] MEDS: fentaNYL 50 mcg/mL INJ 2mL 75 MCG IVP (18:56)
[2023-09-08] MEDS: ondansetron 2 mg/ML SDV 2 mL 4 MG IVP (18:56)
[2023-09-08 19:13] LABS: Basophils % 0.4 %; Eosinophils % 0.2 %; Hematocrit 36.7 % (36-47); Lymphocytes # 1.1 10^3/uL (0.8-4.8); Lymphocytes % 9.7 %; Mean Corpuscular HGB Conc 35.1 g/dL (30-55); Mean Corpuscular Hemoglobin 30.7 pg (27-33); Mean Corpuscular Volume 87.4 fl (85-98); Mean Platelet Volume 10.6 fL (7.4-10.4); Monocytes % 8.9 %; Neutrophils # 8.91 10^3/uL (1.8-7.7); Neutrophils % 80.4 %; Nucleated Red Blood Cells % 0 %; Platelet Count 219 10^3/cmm (157-399); Red Cell Distribution Width 12.6 % (12.1-15.1); White Blood Count 11.07 10^3/uL (3.29-11.43)
[2023-09-08 19:28] LABS: Alanine Aminotransferase 8 U/L (0-33); Albumin Level 4.3 g/dL (3.5-5.2); Alkaline Phosphatase 92 U/L (35-105); Anion Gap 17.8 (5-19); Aspartate Amino Transferase 12 U/L (0-32); Blood Urea Nitrogen 64 mg/dL (8-23); Calcium 9.9 mg/dL (8.5-10.5); Carbon Dioxide 29 mmol/L (22-29); Chloride 92 mmol/L (98-107); Creatinine Clr Calc Pharmacy 17.3954; Globulin 2.5 g/dL (1.3-4.6); Glomerular Filtration Rate 15.1 mL/min (90-130); Glucose 127 mg/dL (65-115); Osmolality Calculated 302 mOsm/kg (285-295); Sodium 136 mmol/L (136-145); Total Bilirubin 0.7 mg/dL (0.15-1.2); Total Protein 6.8 g/dL (6.6-8.7)
[2023-09-08 19:34] LABS: Potassium 2.8 mmol/L (3.5-5.1)
--- NOTE | 2023-09-08 20:38 | PM.HP ---
Providers/Chief Complaint Admitting Physician: Rui Givens MD Primary Care Provider: Preeti Silva NP Chief Complaint: fall, right side hip pain History of Present Illness Chyna Bettencourt is a 67 year old female Review of Systems Const: Denies: fever(s) Card: Denies: chest pain Resp: Denies: dyspnea GI: Denies: abdominal pain Musc: Denies: neck pain Medications/Allergies Home Medications Medication Instructions Recorded Confirmed Last Taken Type insulin regular human 100 unit/mL 10 unit SUBCUT AC 05/23/21 08/16/23 07/10/22 History (3 mL) subcutaneous pen (Novolin R FlexPen) magnesium oxide 400 mg PO DAILY 05/23/21 08/16/23 07/10/22 History potassium chloride 20 mEq 20 meq PO DAILY #30 tabs 05/24/22 08/16/23 07/10/22 Rx tablet,extended release sodium chloride 0.9 % irrigation 1 irrig irrigation DAILY wound 06/21/22 08/16/23 07/10/22 Rx solution (Sterile Saline) care #500 mL 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 meter,continuous #1 ea 08/08/22 08/16/23 Unknown Rx (Dexcom G7 Managed Care Analyst) promethazine-DM 6.25 mg-15 mg/5 mL 5 ml PO Q6H PRN cough #118 mL 08/11/22 08/16/23 Unknown Rx oral syrup ondansetron HCl 4 mg tablet 4 mg PO Q6H PRN nausea and 05/16/23 08/16/23 Unknown Rx vomiting #90 tabs pen needle, diabetic 33 gauge x #100 ea 08/08/23 08/16/23 Unknown Rx 5/32 (Comfort EZ Pen Basom) allopurinol 100 mg tablet 100 mg PO DAILY #90 tabs 08/16/23 08/16/23 Unknown Rx amlodipine 10 mg tablet 10 mg PO DAILY 90 days #90 tabs 08/16/23 08/16/23 Unknown Rx atorvastatin 40 mg tablet 40 mg PO DAILY 90 days #90 tabs 08/16/23 08/16/23 Unknown Rx clopidogrel 75 mg tablet 75 mg PO DAILY 90 days #90 tabs 08/16/23 08/16/23 Unknown Rx furosemide 40 mg tablet 40 mg PO DAILY 90 days #90 tabs 08/16/23 08/16/23 Unknown Rx hydrochlorothiazide 50 mg tablet 50 mg PO DAILY 90 days #90 tabs 08/16/23 08/16/23 Unknown Rx hydrocodone 5 mg-acetaminophen 325 1 tab PO Q8H PRN pain 30 days #90 08/16/23 08/16/23 Unknown Rx mg tablet tabs labetalol 100 mg tablet 100 mg PO DAILY 90 days #90 tabs 08/16/23 08/16/23 Unknown Rx loratadine 10 mg tablet 10 mg PO DAILY 90 days #90 tabs 08/16/23 08/16/23 Unknown Rx Allergies Allergy/AdvReac Type Severity Reaction Status Date / Time codeine Allergy Unknown Verified 08/08/22 13:40 Iodinated Contrast Media Allergy Unknown Verified 08/08/22 13:40 PFSH Acute PFSH: Medical History HTN (hypertension) Diabetes Myocardial infarction UTI (urinary tract infection) CAD (coronary artery disease) Surgical History History of knee surgery History of tubal ligation History of cholecystectomy Social History Smoking and tobacco/nicotine status: never used tobacco/nicotine Vitals/I&O/Wt Last Vital Signs Temp 98.0 F 09/08/23 16:31 Pulse 85 09/08/23 20:30 Resp 16 09/08/23 20:30 BP 155/72 09/08/23 20:30 Pulse Ox 96 09/08/23 20:30 O2 Del Method Room Air 09/08/23 20:30 O2 Flow Rate 4 09/08/23 20:30 Weight last 48 hrs Weight 77.111 kg Physical Exam Const: COMMON NORMALS: no acute distress and patient oriented x3 Eye: COMMON NORMALS: Equal, round and reactive pupils present and EOMs intact bilaterally Resp: COMMON NORMALS: normal respiratory effort, No retractions, No use of accessory muscles and clear to auscultation bilaterally AUSCULTATION: clear to auscultation bilaterally Cardio: COMMON NORMALS: regular rate, regular rhythm, S1 normal heart sound present and S2 normal heart sound present RATE: regular rate RHYTHM: regular rhythm HEART SOUNDS: S1 normal heart sound present and S2 normal heart sound present GI: COMMON NORMALS: Normal to inspection, nondistended, normoactive bowel sounds present, Soft to palpation and non-tender Extremity: COMMON NORMALS: no pedal edema Neuro: COMMON NORMALS: patient oriented x3 and CN's II-XII intact bilaterally Psych: COMMON NORMALS: mental status grossly normal Urinary Catheter Management: Blas: Cath Placed During This Visit: yes Urinary Catheter Date of Insertion: 09/08/23 Urinary Catheter Time of Insertion: 20:30 Data 09/08/23 18:55 09/08/23 18:55 A&P Assessment and plan (1) HTN (hypertension): Qualifiers: Hypertension type: primary hypertension Qualified Code(s): I10 - Essential (primary) hypertension (2) CAD (coronary artery disease): Qualifiers: Coronary Disease-Associated Artery/Lesion type: [place] artery [place] vs. transplanted heart: [place] heart Associated angina: with stable angina Qualified Code(s): I25.118 - Atherosclerotic heart disease of [place] coronary artery with other forms of angina pectoris (3) Diabetes: (4) Chronic kidney disease, stage 4 (severe): (5) Hip fracture: (6) Tibial plateau fracture, right: Plan Right hip fracture CT/CT hip RT wo con* [id number] IMPRESSION: 1. Acute impacted/displaced intracapsular femoral neck fracture on the right. Plan ? N.p.o. midnight -Surgery consulted ? Morphine for pain control, ? Zofran for nausea patient is DNR/DNI, confirmed with this patient multiple times Right knee XR/XR knee RT 3V* [id number] IMPRESSION: 1. Lateral tibial plateau fracture with associated joint effusion. Type 2 diabetes mellitus, low-dose sliding scale JACKY on CKD, will check CpK levels, IV fluids Hypokalemia, will replace Check UA Troponin series Attestations Medical Necessity Statement*: Patient requires hospitalization, inpatient, greater than 2 minutes for hip fracture Diagnoses Primary hypertension I10 Hypertension type: primary hypertension Coronary artery disease of [place] artery of [place] heart with stable angina pectoris I25.118 Coronary Disease-Associated Artery/Lesion type: [place] artery [place] vs. transplanted heart: [place] heart Associated angina: with stable angina Diabetes E11.9 Chronic kidney disease, stage 4 (severe) N18.4 Hip fracture S72.009A Tibial plateau fracture, right S82.141A
[2023-09-08 21:08] LABS: NT Pro B Type Natriuretic Pept 324 pg/mL (0-125); Procalcitonin 0.19 ng/mL (0-0.5); Thyroid Stimulating Hormone 1.84 uIU/mL (0.27-4.20)
[2023-09-08 21:10] LABS: Add Urine Culture? Yes; Add Urine Microscopic? YES; Bacteria Urine 3+ /hpf; Bilirubin Urine Neg (Negative); Blood Urine 2+ (Negative); Glucose Urine UA Norm (Normal); Ketones Urine Negative (Negative); Leukocyte Esterase Urine 2+ (Negative); Mucus Urine TRACE /hpf; Nitrate Urine Negative (Negative); Protein Urine 1+ (Negative); Specific Gravity, Urine 1.005 (1.005-1.030); Squamous Epithelial Cell Urine 0-4 /hpf (0-5); Urine Appearance Cloudy (CLEAR); Urine Color Yellow (Yellow); Urobilinogen Urine Neg (Negative); WBC Urine 55-80 /hpf (0-5); pH Urine 7 (5-7)
[2023-09-08 21:20] LABS: Chol HDL Ratio 2.25 mg/dL (0.0-4.40); Cholesterol 133 mg/dL (0-200); Creatine Phosphokinase 76 U/L (26-192); HDL Cholesterol 59 mg/dL (60-100); LDL Cholesterol Calculated 58 mg/dL (50-129); LDL HDL Ratio 0.98 RATIO (0.00-3.22); Triglycerides 81 mg/dL (0-150)
[2023-09-08 21:23] LABS: Troponin(5th) Baseline 31 ng/L (0-10)
[2023-09-08] MEDS: sodium chloride 0.9% 1,000 ML 100 ML IV (21:45)
[2023-09-08] MEDS: potassium chloride ER 20 mEq Tablet 40 MEQ PO (21:46)
[2023-09-08] MEDS: morphine 4 mg/mL SDV 1 mL 2 MG IVP (21:46)
[2023-09-08] MEDS: pantoprazole 40 mg SDV IVP (21:46)
[2023-09-08 22:13] LABS: Estmated Average Glucose 163; Hemoglobin A1C 7.3 % (4.0-6.0)
--- NOTE | 2023-09-08 23:00 | ECG_ITS ---
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 Measurements Intervals [place] Rate: 76 P: 58 [place]: 177 QRS: -16 QRSD: 96 T: 115 QT: 405 QTc: 458 Interpretive Statements SINUS RHYTHM MODERATE T-WAVE ABNORMALITY, CONSIDER LATERAL ISCHEMIA [-0.1+ mV T-WAVE IN I/aVL/V5/V6] Compared to ECG 09/08/2023 18:25:43 Possible ischemia now present T-wave abnormality still present Electronically Signed On 09-09-2023 11:17:23 CDT by Santos Christian M.D. [id number]
[2023-09-08 23:12] LABS: Troponin 5 2HR 20.47 ng/L (0-10); Troponin 5 2HR Delta -10.53 ABS# (0-10)
[2023-09-09] VITALS (29 sets, daily range): BP systolic 118–164; BP diastolic 65–83; PULSE 63–79; RESP 12–20; TEMP 36.3–37.5; O2SAT 90–96
[2023-09-09] MEDS: cefTRIAXone 1,000 MG in sodium chloride 0.9% (plus) 50 ML 100 MG IV (01:50)
[2023-09-09] MEDS: morphine 4 mg/mL SDV 1 mL 2 MG IVP ×3 (01:51→20:43)
--- NOTE | 2023-09-09 02:34 | ECG_ITS ---
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 Measurements Intervals Arnett Rate: 64 P: 65 MN: 180 QRS: -13 QRSD: 101 T: 114 QT: 436 QTc: 452 Interpretive Statements SINUS RHYTHM MODERATE T-WAVE ABNORMALITY, CONSIDER LATERAL ISCHEMIA [-0.1+ mV T-WAVE IN I/aVL/V5/V6] Compared to ECG 09/08/2023 23:00:29 No significant changes Electronically Signed On 09-09-2023 11:16:40 CDT by Santos Christian M.D. [email or web address] regional [email or web address] Alg/store/[id number]
[2023-09-09 02:57] LABS: Basophils # 0.1 10^3/uL (0.0-0.1); Basophils % 0.7 %; Eosinophils # 0.3 10^3/uL (0.0-0.8); Eosinophils % 3.8 %; Hematocrit 34.5 % (36-47); Lymphocytes # 1.5 10^3/uL (0.8-4.8); Lymphocytes % 20.4 %; Mean Corpuscular HGB Conc 34.2 g/dL (30-55); Mean Corpuscular Hemoglobin 30.8 pg (27-33); Mean Corpuscular Volume 90.1 fl (85-98); Mean Platelet Volume 10.8 fL (7.4-10.4); Monocytes # 0.6 10^3/uL (0.2-0.9); Monocytes % 7.9 %; Neutrophils # 4.81 10^3/uL (1.8-7.7); Neutrophils % 66.8 %; Nucleated Red Blood Cells % 0 %; Platelet Count 188 10^3/cmm (157-399); Red Blood Count 3.83 10^6/uL (3.85-5.65); Red Cell Distribution Width 12.7 % (12.1-15.1)
[2023-09-09 03:13] LABS: Troponin 5 6HR 33.44 ng/L (0-10); Troponin 5 6HR Delta 2.44 ng/L (0-12)
--- NOTE | 2023-09-09 03:13 | PC.RESP ---
EKG @ 2024 WAS A DUPILCATE ORDER SEE EKG DONE AT 1808
[2023-09-09 03:22] LABS: Alanine Aminotransferase 6 U/L (0-33); Albumin Level 3.7 g/dL (3.5-5.2); Alkaline Phosphatase 72 U/L (35-105); Anion Gap 15.1 (5-19); Aspartate Amino Transferase 9 U/L (0-32); Blood Urea Nitrogen 60 mg/dL (8-23); Calcium 8.9 mg/dL (8.5-10.5); Carbon Dioxide 29 mmol/L (22-29); Chloride 99 mmol/L (98-107); Creatinine Clr Calc Pharmacy 18.1252; Globulin 1.8 g/dL (1.3-4.6); Glomerular Filtration Rate 15.7 mL/min (90-130); Glucose 166 mg/dL (65-115); Osmolality Calculated 311 mOsm/kg (285-295); Phosphorus 3.6 mg/dL (2.5-4.5); Potassium 3.1 mmol/L (3.5-5.1); Sodium 140 mmol/L (136-145); Total Bilirubin 0.5 mg/dL (0.15-1.2); Total Protein 5.5 g/dL (6.6-8.7)
[2023-09-09] MEDS: potassium chloride ER 20 mEq Tablet 40 MEQ PO ×2 (05:32→13:22)
[2023-09-09] MEDS: ondansetron 2 mg/ML SDV 2 mL 4 MG IVP ×2 (05:44→13:22)
[2023-09-09 06:24] LABS: Glucose Point of Care 170 mg/dL (70-110)
[2023-09-09] MEDS: sodium chloride 0.9% 1,000 ML 100 ML IV (07:12)
--- NOTE | 2023-09-09 08:30 | XR_ITS ---
WS: [id number] C-ARM RADIOGRAPHS RIGHT HIP; 5 IMAGES HISTORY: RT HIP NAILING; OR PICS COMPARISON: None available. Intraoperative fixation RIGHT hip fracture. 3 pins extend across the fracture line with fracture in g ood position. IMPRESSION: Intraoperative imaging during ORIF of RIGHT intracapsular hip fracture.
--- NOTE | 2023-09-09 08:32 | P.ANESASSM_ITS ---
Pre-Anesthetic Assessment Height/Weight: Height 1.57 m Weight 83.098 kg Temp Pulse Resp BP Pulse Ox O2 Del Method O2 Flow Rate 99.5 F 72 17 146/70 92 Nasal Cannula 2 09/09/23 08:10 09/09/23 08:10 09/09/23 08:10 09/09/23 08:10 09/09/23 08:10 09/09/23 08:10 09/09/23 08:10 Operation Date: 09/09/23 09:30 Proposed Procedures p Hip Screw Closed Reduction Percutaneous Pinning Hip Screw(Right) - Donny Fabian, Last intake: Intake Last Liquid Date 09/08/23 Last Liquid Time 23:00 Last Solid Date 09/08/23 Last Solid Time 21:00 Social No alcohol and No tobacco Exam alert, oriented x 3, clear to auscultation bilaterally and regular rate & rhythm (3/6 Systolic Ejection Murmur ) Airway Submandibular: within normal limits Cervical ROM: within normal limits Mallampati: Class II Pulmonary None reported CV/HEM Coronary Artery Disease, Congestive Heart Failure, Hypertension and Murmur Chronic Renal Insufficiency GI Gastroesophageal Reflux Disease Metabolic Diabetes Mellitus [facility] Osteoarthritis/DJD and Weakness Anesthetic Plan ASA status: 3 Anesthesia: General Medications/Allergies Home Medications Medication Instructions Recorded Confirmed Last Taken Type insulin regular human 100 unit/mL 10 unit SUBCUT 1XD 05/23/21 09/08/23 09/08/23 12:00 History (3 mL) subcutaneous pen magnesium oxide 250 mg PO BID 05/23/21 09/08/23 09/08/23 08:00 History potassium chloride 20 mEq 20 meq PO DAILY #30 tabs 05/24/22 09/08/23 05/18/23 Rx tablet,extended release 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 meter,continuous #1 ea 08/08/22 09/08/23 Unknown 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) ondansetron HCl 4 mg tablet 4 mg PO Q6H PRN nausea and 05/16/23 09/08/23 09/06/23 Rx vomiting #90 tabs allopurinol 100 mg tablet 100 mg PO DAILY #90 tabs 08/16/23 09/08/23 09/08/23 08:00 Rx amlodipine 10 mg tablet 10 mg PO DAILY 90 days #90 tabs 08/16/23 09/08/23 09/08/23 08:00 Rx atorvastatin 40 mg tablet 40 mg PO DAILY 90 days #90 tabs 08/16/23 09/08/23 09/07/23 05:00 Rx clopidogrel 75 mg tablet 75 mg PO DAILY 90 days #90 tabs 08/16/23 09/08/23 09/08/23 08:00 Rx furosemide 40 mg tablet 40 mg PO DAILY 90 days #90 tabs 08/16/23 09/08/23 09/08/23 08:00 Rx hydrochlorothiazide 50 mg tablet 50 mg PO DAILY 90 days #90 tabs 08/16/23 09/08/23 09/08/23 08:00 Rx hydrocodone 5 mg-acetaminophen 325 1 tab PO Q8H PRN pain 30 days #90 08/16/23 09/08/23 09/02/23 Rx mg tablet tabs labetalol 100 mg tablet 100 mg PO DAILY 90 days #90 tabs 08/16/23 09/08/23 09/08/23 08:00 Rx loratadine 10 mg tablet 10 mg PO DAILY 90 days #90 tabs 08/16/23 09/08/23 09/08/23 08:00 Rx Allergies Allergy/AdvReac Type Severity Reaction Status Date / Time codeine Allergy Unknown Verified 08/08/22 13:40 Iodinated Contrast Media Allergy Unknown Verified 08/08/22 13:40 Current Medications Generic Name Dose Route Start Last Admin Trade Name Freq PRN Reason Stop Dose Admin Allopurinol 100 mg 09/09/23 09:00 09/09/23 07:53 Allopurinol 100 Mg Tablet PO Not Given DAILY CRY[facility]AL Amlodipine Besylate 10 mg 09/09/23 09:00 09/09/23 07:53 Amlodipine 10 Mg Tablet PO Not Given DAILY [facility] Atorvastatin Calcium 40 mg 09/09/23 09:00 09/09/23 07:53 Atorvastatin 40 Mg Tablet PO Not Given DAILY [facility] Sodium Chloride 1,000 mls @ 100 mls/hr 09/08/23 20:30 09/09/23 07:12 Sodium Chloride 0.9% IV 100 mls/hr .Q10H [facility] Administration Ceftriaxone Sodium 1,000 mg/ 50 mls @ 100 mls/hr 09/09/23 01:00 09/09/23 02:31 Sodium Chloride IV Infused Q24H [facility] Infusion Protocol Insulin Human Lispro 0 unit 09/09/23 08:00 09/09/23 07:35 Insulin Lispro 100 Unit/1 Ml SUBCUT Not Given TIDWM [facility] Protocol Labetalol HCl 100 mg 09/09/23 09:00 09/09/23 07:54 Labetalol 200 Mg Tablet PO Not Given DAILY [facility] Morphine Sulfate 2 mg 09/08/23 20:30 09/09/23 06:37 Morphine 4 Mg/Ml Sdv 1 Ml IVP 2 mg Q4H PRN Administration SEVERE PAIN Ondansetron HCl 4 mg 09/08/23 20:30 09/09/23 05:44 Ondansetron 2 Mg/Ml Sdv 2 Ml IVP 4 mg Q8H PRN Administration vomiting, or N/V if npo Pantoprazole Sodium 40 mg 09/08/23 20:30 09/08/23 21:46 Pantoprazole 40 Mg Sdv IVP 40 mg Q24H CRYSTAL Administration PFSH Anesthesia Medical History HTN (hypertension) Diabetes Myocardial infarction UTI (urinary tract infection) CAD (coronary artery disease) Surgical History History of knee surgery History of tubal ligation History of cholecystectomy Social History Smoking and tobacco/nicotine status: never used tobacco/nicotine Data Anesthesia 09/09/23 02:38 09/09/23 02:38 Short CBC 09/08/23 09/09/23 Range/Units 18:55 02:38 WBC 11.07 7.20 (3.29-11.43) 10^3/uL Hgb 12.90 11.80 (11.27-16.99) g/dL Hct 36.7 34.5 L (36-47) % MCV 87.4 90.1 (85-98) fl Plt Count 219 188 (157-399) 10^3/cmm Neut % (Auto) 80.4 66.8 % Neut # (Auto) 8.91 H 4.81 (1.8-7.7) 10^3/uL BMP 09/08/23 09/09/23 18:55 02:38 Sodium 136 140 Potassium 2.8 L* 3.1 L Chloride 92 L 99 Carbon Dioxide 29 29 BUN 64 H 60 H Creatinine 3.1 H 3.0 H Glucose 127 H 166 H Calcium 9.9 8.9 Cardiac Enzymes 09/08/23 09/08/23 09/09/23 Range/Units 18:55 22:44 02:38 Creatine Kinase 76 (26-192) U/L Troponin T Baseline 31 H (0-10) ng/L Troponin T 120 Minute 20.47 H (0-10) ng/L Delta Troponin T -10.53 L (0-10) ABS# Troponin T Hi Sens 6Hr 33.44 H (0-10) ng/L Troponin T Hi Sens 6Hr Delta 2.44 (0-12) ng/L NT-Pro-B Natriuret Pep 324 H (0-125) pg/mL Liver Function 09/08/23 09/09/23 Range/Units 18:55 02:38 Total Bilirubin 0.7 0.5 (0.15-1.2) mg/dL AST 12 9 (0-32) U/L ALT 8 6 (0-33) U/L Alkaline Phosphatase 92 72 (35-105) U/L Albumin 4.3 3.7 (3.5-5.2) g/dL Urine 09/08/23 Range/Units 20:30 Urine Color Yellow (Yellow) Urine Appearance Cloudy A (CLEAR) Urine pH 7 (5-7) Ur Specific [place] 1.005 (1.005-1.030) Urine Protein 1+ H (Negative) Urine Glucose (UA) Norm (Normal) Urine Ketones Negative (Negative) Urine Nitrate Negative (Negative) Urine Bilirubin Neg (Negative) Ur Leukocyte Esterase 2+ H (Negative) Urine RBC 5-10 H (0-2) /hpf Urine WBC 55-80 H (0-5) /hpf Cardiac Studies: 2 No Data to Display
--- NOTE | 2023-09-09 08:44 | P.CONIM_ITS ---
Providers/Reason For Consult 2 Consulting Physician/Specialty*: Hospitalist Reason for Consult*: Right femoral neck fracture Attending Physician: Mesfin Flores MD Primary Care Provider: Preeti Silva NP History of Present Illness History of Present Illness Chyna Bettencourt is a 67 year old female was getting into her vehicle after eating at [employer] when she slipped and fell landing on her right hip. Patient was able to get back up into the vehicle but her hip remained in pain and discomfort. Patient did have to bear weight onto her significant other and able to stand. 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) ondansetron HCl 4 mg tablet 4 mg PO Q6H PRN nausea and 05/16/23 09/08/23 09/06/23 Rx vomiting #90 tabs allopurinol 100 mg tablet 100 mg PO DAILY #90 tabs 08/16/23 09/08/23 09/08/23 08:00 Rx amlodipine 10 mg tablet 10 mg PO DAILY 90 days #90 tabs 08/16/23 09/08/23 09/08/23 08:00 Rx atorvastatin 40 mg tablet 40 mg PO DAILY 90 days #90 tabs 08/16/23 09/08/23 09/07/23 05:00 Rx clopidogrel 75 mg tablet 75 mg PO DAILY 90 days #90 tabs 08/16/23 09/08/23 09/08/23 08:00 Rx furosemide 40 mg tablet 40 mg PO DAILY 90 days #90 tabs 08/16/23 09/08/23 09/08/23 08:00 Rx hydrochlorothiazide 50 mg tablet 50 mg PO DAILY 90 days #90 tabs 08/16/23 09/08/23 09/08/23 08:00 Rx hydrocodone 5 mg-acetaminophen 325 1 tab PO Q8H PRN pain 30 days #90 08/16/23 09/08/23 09/02/23 Rx mg tablet tabs labetalol 100 mg tablet 100 mg PO DAILY 90 days #90 tabs 08/16/23 09/08/23 09/08/23 08:00 Rx loratadine 10 mg tablet 10 mg PO DAILY 90 days #90 tabs 08/16/23 09/08/23 09/08/23 08:00 Rx Allergies Allergy/AdvReac Type Severity Reaction Status Date / Time codeine Allergy Unknown Verified 08/08/22 13:40 Iodinated Contrast Media Allergy Unknown Verified 08/08/22 13:40 Current Medications Generic Name Dose Route Start Last Admin Trade Name Freq PRN Reason Stop Dose Admin Allopurinol 100 mg 09/09/23 09:00 09/09/23 07:53 Allopurinol 100 Mg Tablet PO Not Given DAILY [facility] Amlodipine Besylate 10 mg 09/09/23 09:00 09/09/23 07:53 Amlodipine 10 Mg Tablet PO Not Given DAILY [facility] Atorvastatin Calcium 40 mg 09/09/23 09:00 09/09/23 07:53 Atorvastatin 40 Mg Tablet PO Not Given DAILY [facility] Sodium Chloride 1,000 mls @ 100 mls/hr 09/08/23 20:30 09/09/23 07:12 Sodium Chloride 0.9% IV 100 mls/hr .Q10H [facility]YSTAL Administration Ceftriaxone Sodium 1,000 mg/ 50 mls @ 100 mls/hr 09/09/23 01:00 09/09/23 02:31 Sodium Chloride IV Infused Q24H [facility] Infusion Protocol Insulin Human Lispro 0 unit 09/09/23 08:00 09/09/23 07:35 Insulin Lispro 100 Unit/1 Ml SUBCUT Not Given TIDWM [facility] Protocol Labetalol HCl 100 mg 09/09/23 09:00 09/09/23 07:54 Labetalol 200 Mg Tablet PO Not Given DAILY [facility] Morphine Sulfate 2 mg 09/08/23 20:30 09/09/23 06:37 Morphine 4 Mg/Ml Sdv 1 Ml IVP 2 mg Q4H PRN Administration SEVERE PAIN Ondansetron HCl 4 mg 09/08/23 20:30 09/09/23 05:44 Ondansetron 2 Mg/Ml Sdv 2 Ml IVP 4 mg Q8H PRN Administration vomiting, or N/V if npo Pantoprazole Sodium 40 mg 09/08/23 20:30 09/08/23 21:46 Pantoprazole 40 Mg Sdv IVP 40 mg Q24H CRYSTAL Administration PFSH Acute 2 PFSH: Medical History HTN (hypertension) Diabetes Myocardial infarction UTI (urinary tract infection) CAD (coronary artery disease) Surgical History History of knee surgery History of tubal ligation History of cholecystectomy Social History Smoking and tobacco/nicotine status: never used tobacco/nicotine Vitals/I&O/Wt Last Vital Signs Temp 98.2 F 09/09/23 08:43 Pulse 65 09/09/23 08:43 Resp 20 H 09/09/23 08:43 BP 134/68 09/09/23 08:43 Pulse Ox 90 09/09/23 08:43 O2 Del Method Nasal Cannula 09/09/23 08:43 O2 Flow Rate 2 09/09/23 08:10 09/08/23 09/09/23 09/09/23 22:59 06:59 14:59 Intake Total 50 / 50 945 / 945 Output Total 800 / 800 Balance -750 / -750 945 / 945 Weight last 48 hrs Weight 183 lb 3.2 oz Weight 172 lb 12.8 oz Weight 170 lb Physical Exam 2 Narrative: Resting in bed comfortably. Leg in good position. Urinary Catheter Management: Blas: Cath Placed During This Visit: yes Reason for Continuing Indwelling Catheter: Other Urinary Catheter Date of Insertion: 09/08/23 Urinary Catheter Time of Insertion: 20:30 Data 09/09/23 02:38 09/09/23 02:38 A&P Assessment and plan (1) Femoral neck fracture: Right femoral neck fracture Plan is to do a closed reduction percutaneous screw fixation of the right hip. Qualifiers: Encounter type: initial encounter Fracture type: closed Laterality: r ight Qualified Code(s): S72.001A - Fracture of unspecified part of neck of right femur, initial encounter for closed fracture Coding Level of Care Code Acute Code for Chg Fwd Diagnoses Femoral neck fracture S72.001A Encounter type: initial encounter Fracture type: closed Laterality: right
[2023-09-09] MEDS: ceFAZolin 2,000 MG in sodium chloride 0.9% (plus) 50 ML 100 MG IV ×2 (08:54→17:08)
--- NOTE | 2023-09-09 09:55 | PM.OP ---
Operative Report Date of procedure: September 09, 2023 Pre-op diagnosis: Right femoral neck fracture valgus impacted Post-op diagnosis: same Procedure done: Right closed reduction percutaneous screw fixation of right femoral neck Surgeon: Donny Fabian DO Estimated blood loss (mL): 10 Procedure: Right closed reduction percutaneous screw fixation of right femoral neck patient brought the op suite after undergoing anesthesia placed on the [place] table. All areas impingement well-padded. C-arm was brought in to ensure that the fracture was in good position which it was. Patient is then prepped and draped normal sterile fashion. Skin incision made over the Lateral aspect of the hip. Previous guidewire was placed at the inferior portion of the neck along the calcar. And then 2 more wires were placed superiorly 1 anterior 1 posterior along the femoral neck. Into the femoral head. AP lateral fluoroscopy ensured the pins are in good position. The inferior pin was measured at 90 mm. A 90 mm screw with a washer was placed. This was fully threaded. Next the posterior superior screw was placed distally measured 87. And an 85 mm screw was placed. Without a washer. And the same measurement was had at the anterior portion and then 85 screw was placed with a washer. AP lateral fluoroscopy ensured that the screws were in good position and the fracture was in good position. Wounds were irrigated and closed with Vicryl and dory. Sterile dressings were applied patient was transferred to the PACU in stable condition.
--- NOTE | 2023-09-09 09:56 | ANE.PACU2 ---
Inpatient post-anesthesia follow up: Vital signs: Temperature 98.2 F Pulse Rate 65 Respiratory Rate 20 Blood Pressure 134/68 Pulse Oximetry 90 Oxygen Delivery Me thod Nasal Cannula Oxygen Flow Rate 2 Fraction of Inspir ed Oxygen Hydration adequate: Yes Nausea and vomiting: No Pain level: 3 Mental status: Baseline
[2023-09-09 11:25] LABS: Glucose Point of Care 240 mg/dL (70-110)
[2023-09-09] MEDS: insulin lispro 100 unit/1 mL SUBCUT ×2 (11:45→17:08)
[2023-09-09] MEDS: HYDROcodone-acetaminophen 5-325 mg Tablet 1 TAB PO (11:48)
--- NOTE | 2023-09-09 12:48 | USR_ITS ---
PROCEDURE INFORMATION: Exam: US Retroperitoneal; Complete; Kidneys and Bladder Exam date and time: 09/09/2023 2:07 PM Age: 67 years old Clinical indication: Condition or disease; Kidney or ureter condition; Chronic kidney disease or failure; Not specified; Additional info: Julio C on ckd. No history of recent trauma or surgery is provided. TECHNIQUE: Imaging protocol: Real-time ultrasound of the retroperitoneum with image documentation. Complete exam focused on the kidneys and bladder. 342image(s) are provided. Other technique: Grayscale, color images are provided. COMPARISON: 1. CT abdomen pelvis wo con [id number] 01/31/2019 1:35 PM 2. US renal BI* [id number] 05/23/2019 11:[address] [place] [id number] 09/23/2018 5:37 PM FINDINGS: Right kidney: The right kidney measures 8.6 x 4.1 x 3.8 cm. No echogenic obstructive calculus or hydronephrosis is appreciated. No free or perinephric fluid is appreciated. There is some cortical thinning along with slight increased echotexture of the right kidney with similar cortical lobulation. This correlates with cortical thickness of around 1.2 cm versus previous 1.3 cm. Left kidney: The left kidney measures 8.1 x 4.8 x 3.8 cm. No echogenic obstructive calculus or hydronephrosis is appreciated. No free or perinephric fluid is appreciated. The left kidney demonstrates some increased echogenicity of the parenchyma along with slight lobulation. Cortical thickness is provided of 1.2 cm versus previous 1.3 cm. Aorta: Mid aorta measures 1.4 cm. Proximal and distal are somewhat obscured. Uterus: There is history of an enlarged and myomatous heterogeneous uterus. One focus of the this although included measures around 7.2 x 6.5 x 7 cm. This corresponds with the previous provided measurement of 8.[address] Urinary bladder: The bladder is incompletely fluid-filled for evaluation with history of catheter placement. Other findings: No other significant interval changes are appreciated. US/US renal BI* [id number] IMPRESSION: 1. No interval echogenic obstructive renal calculus or hydronephrosis is appreciated. 2. There is some increased echogenicity along with renal cortical thinning bilaterally suggestive of chronic medical renal disease. 3. No interval free fluid collections are appreciated.
--- NOTE | 2023-09-09 12:51 | PM.PN ---
Subjective Subjective: Admitted overnight. Seen postoperatively. Patient getting over anesthesia so slightly drowsy for now. Tolerated procedure well. Has remained hemodynamically stable and afebrile for now. Vitals/I&O/Wt Last Vital Signs Temp 99.0 F 09/09/23 10:34 Pulse 70 09/09/23 11:22 Resp 16 09/09/23 10:34 BP 157/70 09/09/23 10:34 Pulse Ox 92 09/09/23 11:22 O2 Del Method Nasal Cannula 09/09/23 11:22 O2 Flow Rate 2 09/09/23 11:22 09/08/23 09/09/23 09/09/23 22:59 06:59 14:59 Intake Total 50 / 50 1335 / 1335 Output Total 800 / 800 60 / 60 Balance -750 / -750 1275 / 1275 Weight last 48 hrs Weight 83.098 kg Weight 78.381 kg Weight 77.111 kg Physical Exam Narrative: drowsy post operatively Const: COMMON NORMALS: no acute distress and patient oriented x3 Eye: COMMON NORMALS: Equal, round and reactive pupils present and EOMs intact bilaterally PUPIL: Yes Equal, round and reactive pupils present Resp: COMMON NORMALS: normal respiratory effort, No retractions, No use of accessory muscles and clear to auscultation bilaterally AUSCULTATION: clear to auscultation bilaterally Cardio: COMMON NORMALS: regular rate, regular rhythm, S1 normal heart sound present and S2 normal heart sound present RATE: regular rate RHYTHM: regular rhythm HEART SOUNDS: S1 normal heart sound present and S2 normal heart sound present GI: COMMON NORMALS: Normal to inspection, nondistended, normoactive bowel sounds present, Soft to palpation and non-tender PALPATION: Yes Soft to palpation Extremity: COMMON NORMALS: no pedal edema Neuro: COMMON NORMALS: patient oriented x3 and CN's II-XII intact bilaterally Psych: COMMON NORMALS: mental status grossly normal Urinary Catheter Management: Blas: Cath Placed During This Visit: yes Reason for Continuing Indwelling Catheter: Other Urinary Catheter Date of Insertion: 09/08/23 Urinary Catheter Time of Insertion: 20:30 Data 09/09/23 02:38 09/09/23 02:38 A&P Assessment and plan (1) Hip fracture: (2) Tibial plateau fracture, right: (3) Chronic kidney disease, stage 4 (severe): (4) HTN (hypertension): Qualifiers: Hypertension type: primary hypertension Qualified Code(s): I10 - Essential (primary) hypertension (5) CAD (coronary artery disease): Qualifiers: Coronary Disease-Associated Artery/Lesion type: [place] artery [place] vs. transplanted heart: [place] heart Associated angina: with stable angina Qualified Code(s): I25.118 - Atherosclerotic heart disease of [place] coronary artery with other forms of angina pectoris (6) Diabetes: Plan Continue postoperative care. Monitor hemoglobin. Perioperative antibiotics, pain therapy, physical therapy, anticoagulation as per surgical team. Goal blood pressure less than 140/90 mmHg. Continue with home antihypertensives for now including labetalol, amlodipine. Will uptitrate as for goal blood pressures. Mild JACKY on CKD for now. Baseline creatinine 2.5. Continue with normal saline but at 75 cc/h. Check urine lites, urine creatinine, renal ultrasound. Monitor urine output. Potassium 3.1. Repleted already. Repeat 40 mg more. Repeat BMP in evening. Check A1c. Sliding scale ACHS. Switch diet to renal diabetic nondialysis. Monitor BMP and CBC daily for now. Attestations Medical Necessity Statement*: Requires further hospitalization for management of hip fracture post-ORIF for postoperative care, JACKY on CKD. Diagnoses Hip fracture S72.009A Tibial plateau fracture, right S82.141A Chronic kidney disease, stage 4 (severe) N18.4 Primary hypertension I10 Hypertension type: primary hypertension Coronary artery disease of [place] artery of [place] heart with stable angina pectoris I25.118 Coronary Disease-Associated Artery/Lesion type: [place] artery [place] vs. transplanted heart: [place] heart Associated angina: with stable angina Diabetes E11.9
--- NOTE | 2023-09-09 13:16 | PC.PT ---
Attempted PT eval in the afternoon. Pt declined due to be nauseated. Pt was informed that PT will be back in the morning for the PT evaluation. Pt approved of that plan.
[2023-09-09 13:17] LABS: Iron 27 ug/dL (37-145); Percent Saturation 10.6 % (20-50); Total Iron Binding Capacity 254 mcg/dl; Unsaturated Iron Binding 227 ug/dL (112-347)
[2023-09-09 13:32] LABS: Vitamin B12 328 pg/mL (232-1245)
[2023-09-09 17:00] LABS: Glucose Point of Care 189 mg/dL (70-110)
[2023-09-09 17:52] LABS: Anion Gap 15.8 (5-19); Blood Urea Nitrogen 47 mg/dL (8-23); Calcium 9.2 mg/dL (8.5-10.5); Carbon Dioxide 25 mmol/L (22-29); Chloride 101 mmol/L (98-107); Glomerular Filtration Rate 21.3 mL/min (90-130); Glucose 196 mg/dL (65-115); Osmolality Calculated 304 mOsm/kg (285-295); Potassium 3.8 mmol/L (3.5-5.1); Sodium 138 mmol/L (136-145)
[2023-09-09 17:54] LABS: Creatinine Clr Calc Pharmacy 24.3679
[2023-09-09] MEDS: sodium chloride 0.9% 1,000 ML 75 ML IV (20:35)
[2023-09-09] MEDS: pantoprazole 40 mg SDV IVP (20:35)
[2023-09-09 20:52] LABS: Glucose Point of Care 150 mg/dL (70-110)
[2023-09-10] VITALS (8 sets, daily range): BP systolic 135–153; BP diastolic 71–76; PULSE 68–82; RESP 16–18; TEMP 36.6–37.1; O2SAT 91–96
[2023-09-10] MEDS: ceFAZolin 2,000 MG in sodium chloride 0.9% (plus) 50 ML 100 MG IV ×2 (00:10→08:07)
[2023-09-10] MEDS: cefTRIAXone 1,000 MG in sodium chloride 0.9% (plus) 50 ML 100 MG IV (00:10)
--- NOTE | 2023-09-10 01:32 | ECG_ITS ---
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 Measurements Intervals [place] Rate: 80 P: 48 WI: 157 QRS: -12 QRSD: 91 T: 77 QT: 366 QTc: 424 Interpretive Statements SINUS RHYTHM POSSIBLE ANTERIOR MYOCARDIAL INFARCTION , OF INDETERMINATE AGE [30 ms Q WAVE IN V3/V4, OR R < 0.2 mV IN V4] Compared to ECG 09/09/2023 02:34:14 Myocardial infarct finding now present T-wave abnormality no longer present Possible ischemia no longer present Electronically Signed On 09-10-2023 13:15:03 CDT by Santos Christian M.D. [id number]
[2023-09-10 03:31] LABS: Basophils % 0.3 %; Eosinophils # 0.6 10^3/uL (0.0-0.8); Eosinophils % 6.4 %; Hematocrit 35.8 % (36-47); Lymphocytes % 11.7 %; Mean Corpuscular HGB Conc 33.8 g/dL (30-55); Mean Corpuscular Hemoglobin 31.1 pg (27-33); Mean Platelet Volume 10.7 fL (7.4-10.4); Monocytes # 0.8 10^3/uL (0.2-0.9); Monocytes % 8.4 %; Neutrophils % 72.9 %; Nucleated Red Blood Cells % 0 %; Platelet Count 181 10^3/cmm (157-399); Red Blood Count 3.89 10^6/uL (3.85-5.65); Red Cell Distribution Width 12.9 % (12.1-15.1); White Blood Count 8.92 10^3/uL (3.29-11.43)
[2023-09-10 03:47] LABS: Magnesium 2.4 mg/dL (1.7-2.3)
[2023-09-10 03:48] LABS: Alanine Aminotransferase 8 U/L (0-33); Albumin Level 3.6 g/dL (3.5-5.2); Alkaline Phosphatase 79 U/L (35-105); Anion Gap 14.6 (5-19); Aspartate Amino Transferase 15 U/L (0-32); Blood Urea Nitrogen 40 mg/dL (8-23); Calcium 9.1 mg/dL (8.5-10.5); Carbon Dioxide 26 mmol/L (22-29); Chloride 103 mmol/L (98-107); Creatinine Clr Calc Pharmacy 26.1473; Globulin 2.5 g/dL (1.3-4.6); Glomerular Filtration Rate 22.4 mL/min (90-130); Glucose 167 mg/dL (65-115); Osmolality Calculated 304 mOsm/kg (285-295); Potassium 3.6 mmol/L (3.5-5.1); Sodium 140 mmol/L (136-145); Total Bilirubin 0.4 mg/dL (0.15-1.2); Total Protein 6.1 g/dL (6.6-8.7)
[2023-09-10 04:04] LABS: Folate Level 4.3 ng/mL (4.8-37.3)
[2023-09-10] MEDS: HYDROcodone-acetaminophen 5-325 mg Tablet 1 TAB PO ×3 (06:03→21:12)
[2023-09-10 06:20] LABS: Glucose Point of Care 171 mg/dL (70-110)
[2023-09-10] MEDS: insulin lispro 100 unit/1 mL SUBCUT ×4 (08:10→21:33)
[2023-09-10] MEDS: allopurinol 100 mg Tablet PO (08:10)
[2023-09-10] MEDS: aspirin 325 mg EC Tablet PO (08:10)
[2023-09-10] MEDS: atorvastatin 40 mg Tablet PO (08:10)
[2023-09-10] MEDS: amlodipine 10 mg Tablet PO (08:10)
--- NOTE | 2023-09-10 10:15 | PC.SOCIAL ---
IMM Update pg 2 of IMM updated and reviewed w/ patient. Copy provided and copy dated, initialed and placed in chart.
--- NOTE | 2023-09-10 10:15 | PC.CHAP ---
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 [] Patient/Family/Request visit [] Outpatient visit [] Follow-up visit [] Physician referral [] Code/Alert [X] Routine visit [] Staff referral [] Actively dying [] Patient sleeping [X] Family support [] [] Out of room [] Palliative care [] [] Receiving care in room [] Pre-surgical visit [] Trauma [] Long length of stay [] ICU visit [] Other: Relational/Emotional Strength [] Patient feels connected with others/family/visitors/staff [] Distress [] Loneliness/isolation [] Abandonment Spirituality of Patient [X] Person of Naida [] Attends Alevism of their Naida [X] Believes in Prayer [] Reads Bible or Mandaen materials [] There are Spiritual issues to be addressed Paediatric Thoracic Physician Interventions [X Prayer [X] Active listening [] Non-anxious presence [] Spiritual/emotional support [] Crisis/trauma care [] Spiritual counseling [] Bereavement support [] Provided bereavement packet [X] Provided Bible/devotional materials [] Provided toy/stuffed animal, coloring book to patient or family member [] Provided Communion [] Anointing/Driscoll [] Salvation [X] Completed spiritual assessment [] Other: Impact on Illness or Injury [] Angry [] Fearful [] Anxious [] Often cries [] Exhaustion [] Unable to work [] Unable to attend yazidi [] Unable to walk/stand [] Unable to read [] Unable to drive [] Unable to eat/drink [] Unable to sleep [] Unable to be with family [] Patient intubated [] Other: Summary Time spent with patient 10 MIN
[2023-09-10] MEDS: sodium chloride 0.9% 1,000 ML 75 ML IV ×2 (10:24→23:17)
[2023-09-10] MEDS: ondansetron 2 mg/ML SDV 2 mL 4 MG IVP (10:25)
[2023-09-10] MEDS: morphine 4 mg/mL SDV 1 mL 2 MG IVP (10:25)
--- NOTE | 2023-09-10 10:38 | P.PN_ITS ---
Subjective 2 Subjective: Patient is doing well ambulate to the bathroom. Anticipate discharge planning tomorrow Vitals/I&O/Wt Last Vital Signs Temp 98.3 F 09/10/23 08:00 Pulse 75 09/10/23 08:45 Resp 18 09/10/23 08:45 BP 135/75 09/10/23 08:00 Pulse Ox 95 09/10/23 08:45 O2 Del Method Nasal Cannula 09/10/23 08:45 O2 Flow Rate 3 09/10/23 08:45 09/09/23 09/10/23 09/10/23 22:59 06:59 14:59 Intake Total 1390 / 2725 100 / 2825 1170 / 1170 Output Total 850 / 910 Balance 1390 / 2665 -750 / 1915 1170 / 1170 Weight last 48 hrs Weight 192 lb 6.4 oz Weight 183 lb 3.2 oz Weight 172 lb 12.8 oz Weight 170 lb Physical Exam 2 Narrative: Patient doing well sitting in bed. Pain controlled Urinary Catheter Management: Blas: Cath Placed During This Visit: yes, but has since been removed by the nurse Reason for Continuing Indwelling Catheter: Decision to DC Catheter Urinary Catheter Date of Insertion: 09/08/23 Urinary Catheter Time of Insertion: 20:30 Date Urinary Catheter Removed: 09/10/23 Time Urinary Catheter Discontinued: 06:10 Data 09/10/23 02:58 09/10/23 02:58 Micro: Microbiology 09/08/23 20:30 Urine Culture - Preliminary Urine,Clean Catch Gram Negative Rods A&P Assessment and plan (1) Femoral neck fracture: Postop day #1 right closed reduction percutaneous pinning of the hip Up with physical therapy DVT prophylaxis with aspirin Qualifiers: Encounter type: initial encounter Fracture type: closed Laterality: r ight Qualified Code(s): S72.001A - Fracture of unspecified part of neck of right femur, initial encounter for closed fracture Attestations 2 Medical Necessity Statement*: Per primary service Coding Level of Care Code Acute Code for Chg Fwd Diagnoses Femoral neck fracture S72.001A Encounter type: initial encounter Fracture type: closed Laterality: right
[2023-09-10 10:46] LABS: Glucose Point of Care 247 mg/dL (70-110)
--- NOTE | 2023-09-10 14:51 | P.PN_ITS ---
Subjective 2 Subjective: No acute overnight events noted. Medications: Reviewed: Yes Vitals/I&O/Wt Last Vital Signs Temp 98.0 F 09/10/23 12:00 Pulse 76 09/10/23 12:00 Resp 16 09/10/23 12:00 BP 145/71 09/10/23 12:00 Pulse Ox 93 09/10/23 12:00 O2 Del Method Nasal Cannula 09/10/23 12:00 O2 Flow Rate 3 09/10/23 08:45 09/09/23 09/10/23 09/10/23 22:59 06:59 14:59 Intake Total 1390 / 2725 100 / 2825 1170 / 1170 Output Total 850 / 910 Balance 1390 / 2665 -750 / 1915 1170 / 1170 Weight last 48 hrs Weight 87.271 kg Weight 83.098 kg Weight 78.381 kg Weight 77.111 kg Physical Exam 2 Narrative: She is alert awake oriented x 3 Chest clear to auscultation bilaterally Cardiovascular normal heart sounds Abdomen NAD Extremities no edema noted Urinary Catheter Management: Blas: Cath Placed During This Visit: yes, but has since been removed by the nurse Reason for Continuing Indwelling Catheter: Decision to DC Catheter Urinary Catheter Date of Insertion: 09/08/23 Urinary Catheter Time of Insertion: 20:30 Date Urinary Catheter Removed: 09/10/23 Time Urinary Catheter Discontinued: 06:10 Data 09/10/23 02:58 09/10/23 02:58 Micro: Microbiology 09/08/23 20:30 Urine Culture - Preliminary Urine,Clean Catch Gram Negative Rods A&P Assessment and plan (1) Tibial plateau fracture, right: (2) Hip fracture: (3) Fall: Qualifiers: Encounter type: initial encounter Qualified Code(s): W19.XXXA - Unspecified fall, initial encounter (4) Type II diabetes mellitus, well controlled: (5) Chronic kidney disease, stage 4 (severe): (6) HTN (hypertension): Qualifiers: Hypertension type: primary hypertension Qualified Code(s): I10 - Essential (primary) hypertension Plan (1) Hip fracture: (2) Tibial plateau fracture, right: (3) Chronic kidney disease, stage 4 (severe): (4) HTN (hypertension): (5) CAD (coronary artery disease): (6) Diabetes: Plan Continue postoperative care. CKD with creatinine improving at 2.2 Continue home medications for hypertension and diabetes Abnormal UA, repeat UA in a.m. Discussed with case management for subacute nursing facility placement. Attestations 2 Medical Necessity Statement*: Patient is doing well and waiting for placement in subacute nursing facility Time Spent in Patient Care: 25 minutes Coding Level of Care Code Acute Code for g Fwd Diagnoses Tibial plateau fracture, right S82.141A Hip fracture S72.009A Fall W19.XXXA Encounter type: initial encounter Type II diabetes mellitus, well controlled E11.9 Chronic kidney disease, stage 4 (severe) N18.4 Primary hypertension I10 Hypertension type: primary hypertension Time Spent (min) 25
[2023-09-10 16:52] LABS: Glucose Point of Care 204 mg/dL (70-110)
[2023-09-10 20:50] LABS: Glucose Point of Care 176 mg/dL (70-110)
[2023-09-10] MEDS: pantoprazole 40 mg SDV IVP (21:13)
[2023-09-11] VITALS (7 sets, daily range): BP systolic 151–160; BP diastolic 60–77; PULSE 73–88; RESP 17–20; TEMP 36.9–37.2; O2SAT 91–95
[2023-09-11] MEDS: cefTRIAXone 1,000 MG in sodium chloride 0.9% (plus) 50 ML 100 MG IV (00:16)
[2023-09-11] MEDS: HYDROcodone-acetaminophen 5-325 mg Tablet 1 TAB PO (05:24)
[2023-09-11 06:01] LABS: Magnesium 2.2 mg/dL (1.7-2.3)
[2023-09-11 06:28] LABS: Glucose Point of Care 162 mg/dL (70-110)
[2023-09-11] MEDS: ondansetron 2 mg/ML SDV 2 mL 4 MG IVP (08:26)
[2023-09-11] MEDS: amlodipine 10 mg Tablet PO (08:29)
[2023-09-11] MEDS: atorvastatin 40 mg Tablet PO (08:29)
[2023-09-11] MEDS: aspirin 325 mg EC Tablet PO (08:29)
[2023-09-11] MEDS: insulin lispro 100 unit/1 mL SUBCUT ×2 (08:29→11:56)
[2023-09-11] MEDS: allopurinol 100 mg Tablet PO (08:29)
--- NOTE | 2023-09-11 10:22 | P.PN_ITS ---
Subjective 2 Subjective: Patient was on the commode tonight in the room with a physical therapist working outside stated patient was doing much better today planning on discharging today. Vitals/I&O/Wt Last Vital Signs Temp 98.4 F 09/11/23 08:00 Pulse 74 09/11/23 08:00 Resp 17 09/11/23 08:00 BP 155/70 09/11/23 08:00 Pulse Ox 95 09/11/23 08:00 O2 Del Method Nasal Cannula 09/11/23 08:00 O2 Flow Rate 2 09/11/23 07:39 09/10/23 09/11/23 09/11/23 22:59 06:59 14:59 Intake Total 480 / 1650 1256.25 / 2906.25 120 / 120 Balance 480 / 1650 1256.25 / 2906.25 120 / 120 Weight last 48 hrs Weight 194 lb Weight 192 lb 6.4 oz Physical Exam 2 Urinary Catheter Management: Blas: Cath Placed During This Visit: yes, but has since been removed by the nurse Reason for Continuing Indwelling Catheter: Decision to DC Catheter Urinary Catheter Date of Insertion: 09/08/23 Urinary Catheter Time of Insertion: 20:30 Date Urinary Catheter Removed: 09/10/23 Time Urinary Catheter Discontinued: 06:10 Data 09/10/23 02:58 09/10/23 02:58 Micro: Microbiology 09/08/23 20:30 Urine Culture - Preliminary Urine,Clean Catch Gram Negative Rods A&P Assessment and plan (1) Femoral neck fracture: Postop day #2 closed duction percutaneous pinning of hip Follow-up in orthopedic clinic in 2 weeks. Qualifiers: Encounter type: initial encounter Fracture type: closed Laterality: r ight Qualified Code(s): S72.001A - Fracture of unspecified part of neck of right femur, initial encounter for closed fracture Attestations 2 Medical Necessity Statement*: Per primary service Coding Level of Care Code Acute Code for Chg Fwd Diagnoses Femoral neck fracture S72.001A Encounter type: initial encounter Fracture type: closed Laterality: right
[2023-09-11 10:47] LABS: Glucose Point of Care 212 mg/dL (70-110)
--- NOTE | 2023-09-11 11:18 | PM.DCS ---
Discharge Providers Date of Admission: 09/08/23 19:35 Date of Discharge: September 11, 2023 Attending Provider at Admission: Rui Givens MD Attending Provider at Discharge: Shantell Hampton MD Primary Care Provider: Preeti Silva NP Diagnoses at Discharge Discharge Diagnosis (1) Femoral neck fracture: Status: Acute Qualifiers: Encounter type: initial encounter Fracture type: closed Laterality: right Qualified Code(s): S72.001A - Fracture of unspecified part of neck of right femur, initial encounter for closed fracture (2) UTI (urinary tract infection): Status: Acute Reason for Visit Reason for Visit: fall, right side hip pain Brief History: She presented with hip fracture and is s/p ORIF Hospital Course Hospital Course Assessment and plan (1) Tibial plateau fracture, right: (2) Hip fracture: (3) Fall: Qualifiers: Encounter type: initial encounter Qualified Code(s): W19.XXXA - Unspecified fall, initial encounter (4) Type II diabetes mellitus, well controlled: (5) Chronic kidney disease, stage 4 (severe): (6) HTN (hypertension): Qualifiers: Hypertension type: primary hypertension Qualified Code(s): I10 - Essential (primary) hypertension (7) UTI Plan (1) Hip fracture: (2) Tibial plateau fracture, right: (3) Chronic kidney disease, stage 4 (severe): (4) HTN (hypertension): (5) CAD (coronary artery disease): (6) Diabetes: (7)UTI Plan Plan to discharge to subacute nursing facility today Continue home medications for hypertension and diabetes Will give p.o. Levaquin 750 mg daily for 5 days for UTI Physical Exam Narrative: She is alert awake oriented x 3 Chest clear to auscultation bilaterally Cardiovascular normal heart sounds Abdomen NAD Extremities no edema noted Urinary Catheter Management: Blas: Cath Placed During This Visit: yes, but has since been removed by the nurse Reason for Continuing Indwelling Catheter: Decision to DC Catheter Urinary Catheter Date of Insertion: 09/08/23 Urinary Catheter Time of Insertion: 20:30 Date Urinary Catheter Removed: 09/10/23 Time Urinary Catheter Discontinued: 06:10 Discharge Data Studies Completed and Pending Completed Studies During Hospitalization Category Date Time Status CT hip RT wo con* [id number] Stat Cat Scan 09/08/23 18:21 Completed XR chest 1V portable [id number] Stat Exams 09/08/23 18:04 Completed XR hip RT 2-3V wo/w pel* [id number] Routine Exams 09/09/23 08:30 Completed XR hip RT 2-3V wo/w pel* [id number] Stat Exams 09/08/23 16:15 Completed XR knee RT 3V* [id number] Stat Exams 09/08/23 18:21 Completed US renal BI* [id number] Routine Ultrasound 09/09/23 12:48 Completed Pending at discharge Category Date Time Status MAG [Magnesium] AM LABS Lab 09/12/23 04:00 Ordered Urine Creatinine Routine Lab 09/09/23 12:49 Ordered Urine Culture Stat Lab 09/08/23 20:30 Results Urine Eosinophils Routine Lab 09/09/23 12:50 Ordered Urine Lytes [Urine Random Lytes] Stat Lab 09/09/23 12:49 Ordered Radiology Impressions Chest X-Ray 09/08/23 18:04 IMPRESSION: 1. No acute cardiopulmonary abnormality. Hip CT 09/08/23 18:21 IMPRESSION: 1. Acute impacted/displaced intracapsular femoral neck fracture on the right. 2. Air within the bladder raising the question of recent catheterization or gas-forming infection. Knee X-Ray 09/08/23 18:21 IMPRESSION: 1. Lateral tibial plateau fracture with associated joint effusion. Correlation with CT is recommended for further detail. Renal Ultrasound 09/09/23 12:48 IMPRESSION: 1. No interval echogenic obstructive renal calculus or hydronephrosis is appreciated. 2. There is some increased echogenicity along with renal cortical thinning bilaterally suggestive of chronic medical renal disease. 3. No interval free fluid collections are appreciated. Laboratory Results WBC 8.92 10^3/uL (3.29-11.43) 09/10/23 02:58 RBC 3.89 10^6/uL (3.85-5.65) 09/10/23 02:58 Hgb 12.10 g/dL (11.27-16.99) 09/10/23 02:58 Hct 35.8 % (36-47) L 09/10/23 02:58 MCV 92.0 fl (85-98) 09/10/23 02:58 MCH 31.1 pg (27-33) 09/10/23 02:58 MCHC 33.8 g/dL (30-55) 09/10/23 02:58 RDW 12.9 % (12.1-15.1) 09/10/23 02:58 Plt Count 181 10^3/cmm (157-399) 09/10/23 02:58 MPV 10.7 fL (7.4-10.4) H 09/10/23 02:58 Neut % (Auto) 72.9 % 09/10/23 02:58 Lymph % (Auto) 11.7 % 09/10/23 02:58 Stearns % (Auto) 8.4 % 09/10/23 02:58 Eos % (Auto) 6.4 % 09/10/23 02:58 Baso % (Auto) 0.3 % 09/10/23 02:58 Neut # (Auto) 6.50 10^3/uL (1.8-7.7) 09/10/23 02:58 Lymph # (Auto) 1.0 10^3/uL (0.8-4.8) 09/10/23 02:58 Stearns # (Auto) 0.8 10^3/uL (0.2-0.9) 09/10/23 02:58 Eos # (Auto) 0.6 10^3/uL (0.0-0.8) 09/10/23 02:58 Baso # (Auto) 0.0 10^3/uL (0.0-0.1) 09/10/23 02:58 Nucleated RBC % (auto) 0 % 09/10/23 02:58 Nucleated RBCs # 0.0 /100WBC 09/10/23 02:58 Sodium 140 mmol/L (136-145) 09/10/23 02:58 Potassium 3.6 mmol/L (3.5-5.1) 09/10/23 02:58 Chloride 103 mmol/L (98-107) 09/10/23 02:58 Carbon Dioxide 26 mmol/L (22-29) 09/10/23 02:58 Anion Gap 14.6 (5-19) 09/10/23 02:58 BUN 40 mg/dL (8-23) H 09/10/23 02:58 Creatinine 2.2 mg/dL (0.5-0.9) H 09/10/23 02:58 GFR Calculation 22.4 mL/min (90-130) L 09/10/23 02:58 Glucose 167 mg/dL (65-115) H 09/10/23 02:58 POC Glucose 212 mg/dL (70-110) H 09/11/23 10:34 Estimat Average Glucose 163 09/08/23 18:55 Hemoglobin A1c 7.3 % (4.0-6.0) H 09/08/23 18:55 Calculated Osmolality 304 mOsm/kg (285-295) H 09/10/23 02:58 Calcium 9.1 mg/dL (8.5-10.5) 09/10/23 02:58 Phosphorus 3.6 mg/dL (2.5-4.5) 09/09/23 02:38 Magnesium 2.2 mg/dL (1.7-2.3) 09/11/23 05:12 Iron 27 ug/dL (37-145) L 09/09/23 02:38 TIBC 254 mcg/dl 09/09/23 02:38 % Saturation 10.6 % (20-50) L 09/09/23 02:38 Unsat Iron Binding 227 ug/dL (112-347) 09/09/23 02:38 Total Bilirubin 0.4 mg/dL (0.15-1.2) 09/10/23 02:58 AST 15 U/L (0-32) 09/10/23 02:58 ALT 8 U/L (0-33) 09/10/23 02:58 Alkaline Phosphatase 79 U/L (35-105) 09/10/23 02:58 Creatine Kinase 76 U/L (26-192) 09/08/23 18:55 Troponin T Baseline 31 ng/L (0-10) H 09/08/23 18:55 Troponin T 120 Minute 20.47 ng/L (0-10) H 09/08/23 22:44 Delta Troponin T -10.53 ABS# (0-10) L 09/08/23 22:44 Troponin T Hi Sens 6Hr 33.44 ng/L (0-10) H 09/09/23 02:38 Troponin T Hi Sens 6Hr Delta 2.44 ng/L (0-12) 09/09/23 02:38 NT-Pro-B Natriuret Pep 324 pg/mL (0-125) H 09/08/23 18:55 Total Protein 6.1 g/dL (6.6-8.7) L 09/10/23 02:58 Albumin 3.6 g/dL (3.5-5.2) 09/10/23 02:58 Globulin 2.5 g/dL (1.3-4.6) 09/10/23 02:58 Triglycerides 81 mg/dL (0-150) 09/08/23 18:55 Cholesterol 133 mg/dL (0-200) 09/08/23 18:55 LDL Cholesterol, Calc 58 mg/dL (50-129) 09/08/23 18:55 HDL Cholesterol 59 mg/dL (60-100) L 09/08/23 18:55 LDL/HDL Ratio 0.98 RATIO (0.00-3.22) 09/08/23 18:55 Cholesterol/HDL Ratio 2.25 mg/dL (0.0-4.40) 09/08/23 18:55 Vitamin B12 328 pg/mL (232-1245) 09/09/23 02:38 Folate 4.3 ng/mL (4.8-37.3) L 09/10/23 02:58 Procalcitonin 0.19 ng/mL (0-0.5) 09/08/23 18:55 TSH 1.84 uIU/mL (0.27-4.20) 09/08/23 18:55 Urine Color Yellow (Yellow) 09/08/23 20:30 Urine Appearance Cloudy (CLEAR) A 09/08/23 20:30 Urine pH 7 (5-7) 09/08/23 20:30 Ur Specific [place] 1.005 (1.005-1.030) 09/08/23 20:30 Urine Protein 1+ (Negative) H 09/08/23 20:30 Urine Glucose (UA) Norm (Normal) 09/08/23 20:30 Urine Ketones Negative (Negative) 09/08/23 20:30 Urine Blood 2+ (Negative) H 09/08/23 20:30 Urine Nitrate Negative (Negative) 09/08/23 20:30 Urine Bilirubin Neg (Negative) 09/08/23 20:30 Urine Urobilinogen Neg mg/dL (Negative) 09/08/23 20:30 Ur Leukocyte Esterase 2+ (Negative) H 09/08/23 20:30 Urine RBC 5-10 /hpf (0-2) H 09/08/23 20:30 Urine WBC 55-80 /hpf (0-5) H 09/08/23 20:30 Ur Squamous Epith Cells 0-4 /hpf (0-5) H 09/08/23 20:30 Amorphous Sediment Not Reportable 09/08/23 20:30 Urine Bacteria 3+ /hpf (NONE) H 09/08/23 20:30 Urine Mucus Trace /hpf 09/08/23 20:30 Vitals Last Vital Signs Temp 98.4 F 09/11/23 08:00 Pulse 74 09/11/23 08:00 Resp 17 09/11/23 08:00 BP 155/70 09/11/23 08:00 Pulse Ox 95 09/11/23 08:00 O2 Del Method Nasal Cannula 09/11/23 08:00 O2 Flow Rate 2 09/11/23 07:39 Discharge Plan Discharge Patient Disposition: Home Health Service Condition: Stable Prescriptions: New levofloxacin 750 mg tablet 750 mg PO DAILY 7 Days Qty: 7 0RF Continued magnesium oxide 400 mg magnesium tablet 250 mg PO BID (DME) [facility] [employer] Misc See Rx Instructions .Route Qty: 1 0RF Rx Instructions: 1 CGM and all required supplies As directed allopurinol 100 mg tablet 100 mg PO DAILY Qty: 90 1RF amlodipine 10 mg tablet 10 mg PO DAILY 90 Days Qty: 90 1RF atorvastatin 40 mg tablet 40 mg PO DAILY 90 Days Qty: 90 1RF clopidogrel 75 mg tablet 75 mg PO DAILY 90 Days Qty: 90 1RF furosemide 40 mg tablet 40 mg PO DAILY 90 Days Qty: 90 1RF hydrochlorothiazide 50 mg tablet 50 mg PO DAILY 90 Days Qty: 90 1RF hydrocodone-acetaminophen 5-325 mg tablet 1 tab PO Q8H PRN (Reason: pain) 30 Days Qty: 90 0RF labetalol 100 mg tablet 100 mg PO DAILY 90 Days Qty: 90 1RF loratadine 10 mg tablet 10 mg PO DAILY 90 Days Qty: 90 1RF potassium chloride 20 mEq tablet extended release 20 meq PO DAILY Qty: 30 0RF Discontinued insulin regular human 100 unit/mL (3 mL) insulin pen 10 unit SUBCUT 1XD Rx Instructions: take once per day ondansetron HCl 4 mg tablet 4 mg PO Q6H PRN (Reason: nausea and vomiting) Qty: 90 0RF Discharge Orders: Discharge Order (Routine); Ordered 09/11/23 Ordered By: Shantell Hampton Referrals: [facility] [Other] Pereti Silva, ORDNANCE ARTIFICER [Primary Care Provider] - (We have notified your physician's clinic of the need for a follow-up appointment to be scheduled. If you have not heard from them within the next 2 business days, please call them directly. ) Donny Fabian DO [Physician] - 2 weeks (We have notified your physician's clinic of the need for a follow-up appointment to be scheduled. If you have not heard from them within the next 2 business days, please call them directly. ) Discharge Diet: Cardiac Discharge Activity: Increase activity as tolerated Patient Instructions: Levofloxacin (By mouth), Joint Replacement Surgery (DC), Opioid Safety, Pain Management Activity Restrictions/Additional Instructions: You are being discharged from the hospital today during which time you have been under the care of Dr. Fabian. You had a femoral neck fracture. You were treated for this injury with closed reduction percutaneous screw fixation of the right femoral neck fracture. You may resume you normal diet (including any special diets as directed by your primary doctor) as well as your home medications. You should follow up with you primary doctor if you have any questions regarding medication you took prior to your stay in the hospital. You may take your pain medication as prescribed. After the first few days, take your pain medication as needed. Do not drive or drink alcohol while taking your pain medication. Your injury may increase your risk of developing a blood clot,or DVT, in your arm or leg. This could potentially dislodge and travel to your lungs and become a life threatening condition called apulmonary embolus,or PE. You have been prescribed aspirin to be taken to prevent this. Frequent movement of the legs will also help prevent this from occurring. If you develop any new or worsening cough, chestpain, bloody sputum or shortness of breath, call 911 or go to the EmergencyRoom. Always keep your surgical incision/dressing clean and dry. If you experience increasing pain at your incision site, redness, swelling, increasing discharge, foul odors, or fevers (greater than 100.4), night sweats or chills you should call the office at the above number. If you feel this is an emergency you should be evaluated in the Emergency Department of a nearby hospital. Orthopedic Patient Instructions Summary: Weight Bearing: As tolerated Activity: As tolerated. Diet: Regular. Wound Care: Keep dressing clean and dry. Anticoagulation: Aspirin Pain Medication: Take only as needed. Ice, rest and elevation will be of great benefit. Please plan to follow-up wlth Dr Fabian in 2 weeks. You will need to call the clinic [phone] to schedule this visit. Thank you far allowing me to participate in your care. Do not hesitate to call the office with any questions or concerns. Discharge Attestations Time Spent in Discharge Care*: less than 30 min Quality Metrics Clinical Quality Measures [ No reported AMI, CVA or VTE this stay] Coding Level of Care Code Acute Code for [facility] Fwd Diagnoses Femoral neck fracture S72.001A Encounter type: initial encounter Fracture type: closed Laterality: right UTI (urinary tract infection) N39.0 Time Spent (min) 25
== END 2023-09-11 14:06 | disposition home health service (06) | DRG 481 ==
LOC: ER 18:39 → MEDSURG 19:55
PROVIDERS: Orthopaedic Surgery; Student in an Organized Health Care Education/Training Program; Admitting Provider Family Medicine; Emergency Provider Nurse Practitioner Family; PCP Nurse Practitioner Family; Visit Provider Internal Medicine
PROC: 0QS834Z Reposition Right Femoral Shaft with Internal Fixation Device, Percutaneous Approach (ICD-10-PCS; CPT 27236; principal; 2023-09-09 09:00)
DX: S72.011A Unspecified intracapsular fracture of right femur, initial encounter for closed fracture (principal); N17.9 Acute kidney failure, unspecified; S82.141A Displaced bicondylar fracture of right tibia, initial encounter for closed fracture; N39.0 Urinary tract infection, site not specified; N18.4 Chronic kidney disease, stage 4 (severe); W01.0XXA Fall on same level from slipping, tripping and stumbling without subsequent striking against object, initial encounter; E87.6 Hypokalemia; E11.22 Type 2 diabetes mellitus with diabetic chronic kidney disease; I12.9 Hypertensive chronic kidney disease with stage 1 through stage 4 chronic kidney disease, or unspecified chronic kidney disease; I25.10 Atherosclerotic heart disease of native coronary artery without angina pectoris; Z79.4 Long term (current) use of insulin
CPT/HCPCS: 36415; 36416; 51702; 71045; 73502; 73562; 73700; 76000; 76770; 80048; 80053; 80061; 81001; 82550; 82607; 82746; 82962; 83036; 83540; 83550; 83735; 83880; 84100; 84145; 84443; 84484; 85025; 87077; 87086; 87186; 93005; 94664; 96372; 96374; 96375; 97116; 97161; 97165; 97530; 97535; 99285; C1713 ×2; C9113; J0330; J0690; J0696; J1815; J2001; J2270; J2371; J2405; J2704; J3010; J7030

== ENCOUNTER → 2023-09-18 10:32 | Outpatient (BNVA) | payer MEDICARE, SELFPAY | PROVIDERS: PCP Nurse Practitioner Family; Visit Provider Nurse Practitioner Family | DX: N18.4 Chronic kidney disease, stage 4 (severe) (principal); G89.29 Other chronic pain; K21.9 Gastro-esophageal reflux disease without esophagitis | CPT/HCPCS: 80053; 85025 ==

== ENCOUNTER → 2023-09-25 12:21 | Outpatient (BNVA) | payer MEDICARE, SELFPAY | PROVIDERS: PCP Nurse Practitioner Family; Visit Provider Orthopaedic Surgery | DX: S72.001D Fracture of unspecified part of neck of right femur, subsequent encounter for closed fracture with routine healing (principal); X58.XXXD Exposure to other specified factors, subsequent encounter | CPT/HCPCS: 99024 ==

== ENCOUNTER → 2023-10-03 08:16 | Outpatient (BNVA) | payer MEDICARE, SELFPAY | PROVIDERS: PCP Nurse Practitioner Family; Visit Provider Nurse Practitioner Family | DX: E87.6 Hypokalemia (principal); N18.4 Chronic kidney disease, stage 4 (severe) | CPT/HCPCS: 80053; 85025 ==

== ENCOUNTER → 2023-10-23 13:44 | Outpatient (BNVA) | payer MEDICARE, SELFPAY | PROVIDERS: PCP Nurse Practitioner Family; Visit Provider Orthopaedic Surgery | DX: S72.001D Fracture of unspecified part of neck of right femur, subsequent encounter for closed fracture with routine healing (principal); X58.XXXD Exposure to other specified factors, subsequent encounter | CPT/HCPCS: 73502; 99024 ==

== ENCOUNTER → 2023-11-13 11:35 | Outpatient (BNVA) | payer MEDICARE, SELFPAY | PROVIDERS: PCP Nurse Practitioner Family; Visit Provider Nurse Practitioner Family | DX: E87.6 Hypokalemia (principal); N18.4 Chronic kidney disease, stage 4 (severe); E11.9 Type 2 diabetes mellitus without complications | CPT/HCPCS: 80053; 85025 ==

== ENCOUNTER → 2023-11-21 13:44 | Outpatient (BNVA) | payer MEDICARE, SELFPAY | PROVIDERS: PCP Nurse Practitioner Family; Visit Provider Nurse Practitioner Family | DX: N18.4 Chronic kidney disease, stage 4 (severe) (principal); E87.6 Hypokalemia; I25.10 Atherosclerotic heart disease of native coronary artery without angina pectoris; E78.00 Pure hypercholesterolemia, unspecified; K21.9 Gastro-esophageal reflux disease without esophagitis; G89.29 Other chronic pain; I10 Essential (primary) hypertension; M62.838 Other muscle spasm | CPT/HCPCS: 80053 ==

== ENCOUNTER → 2023-12-04 12:52 | Outpatient (BNVA) | payer MEDICARE, SELFPAY | PROVIDERS: PCP Nurse Practitioner Family; Visit Provider Orthopaedic Surgery | DX: S72.001D Fracture of unspecified part of neck of right femur, subsequent encounter for closed fracture with routine healing; X58.XXXD Exposure to other specified factors, subsequent encounter; M25.551 Pain in right hip | CPT/HCPCS: 73502; 99024 ==

== ENCOUNTER 2023-12-07 08:08 | Outpatient (CLI) | payer MEDICARE, SELFPAY ==
--- NOTE | 2023-12-07 09:15 | CT_ITS ---
WS: [id number] Noncontrast CT RIGHT hip TECHNIQUE: Noncontrast CT RIGHT hip with coronal and sagittal reformatted images. CLINICAL INFORMATION: hip fx DLP: 322.[address] scans at [facility] use at least one of these dose optimization techniques: automated e xposure control; mA and/or kV adjustment per patient size (includes targeted exams where dose is matc hed to clinical indication); or iterative reconstruction. FINDINGS: Screw Fixation RIGHT subcapital hip fracture with 3 cannulated screws. No evidence of screw loosening or new fracture. Fixation screws appear in good position. Osteopenia. Moderate to advanced arthritis RIGHT hip with hypertrophic changes along the acetabulum a nd femoral neck. Hypertrophic change of the greater trochanter. Vascular calcification. Degenerative arthritis RIGHT sacroiliac joint. Partially visualized markedly enlarged uterus with fundal mass is i ndeterminate but may be fibroids. This appears similar to 2019 although only partially visualized toguero benson. Recommend up with contrast-enhanced CT abdomen pelvis or ultrasound. CT/CT hip RT wo con* [id number] IMPRESSION: 1. Normal postoperative appearance of the RIGHT hip with screw fixation. No ev idence of screw loosening 2. Moderate advanced arthritis RIGHT hip. 3. Partially visualized masslike uterus indeterminant but may be due to fibroi d uterus. Recommend follow-up with ultrasound or contrast-enhanced CT abdomen p joel. Neoplasm not excluded.
== END 2023-12-07 08:09 | disposition home or self-care (01) ==
LOC: RAD 08:08
PROVIDERS: PCP Nurse Practitioner Family; Visit Provider Orthopaedic Surgery
DX: S72.001D Fracture of unspecified part of neck of right femur, subsequent encounter for closed fracture with routine healing (principal); M16.11 Unilateral primary osteoarthritis, right hip; N85.2 Hypertrophy of uterus; X58.XXXD Exposure to other specified factors, subsequent encounter; Z96.641 Presence of right artificial hip joint
CPT/HCPCS: 73700

== ENCOUNTER 2023-12-24 09:24 | Day surgery (SDC) | payer MEDICARE, SELFPAY ==
--- OUTSIDE RECORDS SUMMARY | 2023-12-19 12:11 | XMS_ITS | Patient Health Record ---
Author Name Unknown Organization [facility] Address [address] [place] [address] Support Name Relationship Address Phone Chyna Bettencourt Guarantor Unknown [phone] Allergies Allergen (clinical drug ingredient) Drug/Non Drug Allergy documented on EMR Reaction Allergy Type Onset Date Status codeine Codeine , Drug Allergy Active Reason For Referral No Information Medications Medication SIG (Take, Route, Frequency, Duration) Notes Start Date End Date Status Atenolol 50 MG / Chlorthalidone 25 MG Oral Tablet Atenolol 50 MG / Chlorthalidone 25 MG Oral Tablet 09/07/2015 Active formoterol fumarate 0.01 MG/ML Inhalant Solution [Perforomist] formoterol fumarate 0.01 MG/ML Inhalant Solution [Perforomist] 12/13/2015 Active Cinnamon Bark 500 MG Oral Capsule Cinnamon Bark 500 MG Oral Capsule 09/11/2016 Active Lantus Lantus 09/07/2015 Active Allopurinol 100 MG Oral Tablet Allopurinol 100 MG Oral Tablet 09/11/2016 Active valsartan 320 MG Oral Tablet valsartan 320 MG Oral Tablet 11/28/2016 Active Spironolactone 25 MG Oral Tablet Spironolactone 25 MG Oral Tablet 09/10/2017 Active Omeprazole 40 MG Enteric Coated Capsule Omeprazole 40 MG Enteric Coated Capsule 09/07/2015 Active Dulcolax Stool Softener Dulcolax Stool Softener 09/11/2016 Active Magnesium Oxide 500 MG Oral Tablet Magnesium Oxide 500 MG Oral Tablet 09/11/2016 Active atorvastatin 20 MG Oral Tablet atorvastatin 20 MG Oral Tablet 09/07/2015 Active gabapentin 100 MG Oral Capsule gabapentin 100 MG Oral Capsule 09/07/2015 Active Glipizide 10 MG Oral Tablet Glipizide 10 MG Oral Tablet 09/11/2016 Active Plan Of Treatment No Information
[2023-12-24] VITALS (11 sets, daily range): BP systolic 122–157; BP diastolic 65–93; PULSE 67–73; RESP 10–18; TEMP 36.3–36.9; O2SAT 97–100; BMI 29.8
--- OUTSIDE RECORDS SUMMARY | 2023-12-24 09:26 | XMS_ITS | Patient Health Record ---
Author Name Unknown Organization [facility] Address [address] [place] [address] Support Name Relationship Address Phone Chyna Bettencourt Guarantor Unknown [phone] Allergies Allergen (clinical drug ingredient) Drug/Non Drug [...]
[2023-12-24] MEDS: sodium chloride 0.9% 1,000 ML 30 ML IV (10:09)
[2023-12-24 10:12] LABS: Glucose Point of Care 301 mg/dL (70-110)
--- NOTE | 2023-12-24 10:50 | P.ANESASSM_ITS ---
Pre-Anesthetic Assessment Height/Weight: Height 1.57 m Weight 73.936 kg Temp Pulse Resp BP Pulse Ox O2 Del Method 98.4 F 73 18 132/75 98 Room Air 12/24/23 10:15 12/24/23 10:15 12/24/23 10:15 12/24/23 10:15 12/24/23 10:15 12/24/23 10:23 Preop Diagnosis: femoral neck fracture Operation Date: 12/24/23 09:45 Proposed Procedures p Hemiarthroplasty Hip(Right) - Donny Fabian DO Familial anesthetic complications: PONV Was Beta Joanne taken within 24 hours: Yes Was Clonidine taken within 24 hours: N/A Last intake: Intake Last Liquid Date 12/24/23 Last Liquid Time 07:30 Last Solid Date 12/23/23 Last Solid Time 23:30 Social No alcohol and No tobacco Exam alert, oriented x 3, clear to auscultation bilaterally and regular rate & rhythm Airway Dentition: other (no teeth) CV/HEM Coronary Artery Disease and Hypertension Chronic Renal Insufficiency Metabolic Diabetes Mellitus Anesthetic Plan ASA status: 3 Anesthesia: General Other: TIVA Risk of > 500 ml blood loss (7ml/kg in children): No Medications/Allergies Home Medications Medication Instructions Recorded Confirmed Last Taken Type magnesium oxide 250 mg PO BID 05/23/21 12/21/23 12/23/23 History 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 meter,continuous #1 ea 08/08/22 12/18/23 Unknown 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) furosemide 40 mg tablet 40 mg PO DAILY 90 days #90 tabs 08/16/23 12/21/23 12/23/23 Rx hydrochlorothiazide 50 mg tablet 50 mg PO DAILY 90 days #90 tabs 08/16/23 12/21/23 12/23/23 Rx loratadine 10 mg tablet 10 mg PO DAILY 90 days #90 tabs 08/16/23 12/21/23 12/23/23 Rx ondansetron HCl 4 mg tablet 4 mg PO Q6H PRN nausea and 09/12/23 12/21/23 12/21/23 Rx vomiting #90 tabs allopurinol 100 mg tablet 100 mg PO DAILY #90 tabs 11/21/23 12/21/23 12/23/23 Rx amlodipine 10 mg tablet 10 mg PO DAILY 90 days #90 tabs 11/21/23 12/21/23 12/23/23 Rx atorvastatin 40 mg tablet 40 mg PO DAILY 90 days #90 tabs 11/21/23 12/21/23 12/23/23 Rx clopidogrel 75 mg tablet 75 mg PO DAILY 90 days #90 tabs 11/21/23 12/21/23 12/20/23 Rx hydrocodone 5 mg-acetaminophen 325 1 tab PO Q8H PRN pain 30 days #90 11/21/23 12/21/23 12/23/23 Rx mg tablet tabs labetalol 100 mg tablet 100 mg PO DAILY 90 days #90 tabs 11/21/23 12/21/23 12/24/23 06:00 Rx pantoprazole 40 mg tablet,delayed 40 mg PO BID 30 days #60 tabs 11/21/23 12/21/23 12/24/23 06:00 Rx release (Protonix) tizanidine 4 mg tablet 4 mg PO .QHS PRN muscle spasticity 11/21/23 12/21/23 12/23/23 Rx #30 tabs famotidine 40 mg tablet 40 mg PO BID 12/21/23 12/21/23 12/23/23 History insulin regular human 100 unit/mL 10 unit SUBCUT DAILY 12/21/23 12/24/23 12/23/23 12:00 History injection solution (Novolin R Regular U-100 Insulin) potassium chloride 20 mEq 20 meq PO DAILY 12/21/23 12/21/23 12/23/23 History tablet,extended release Allergies Allergy/AdvReac Type Severity Reaction Status Date / Time codeine Allergy ADR-Vomitin Verified 12/21/23 14:41 g Iodinated Contrast Media Allergy ALGY-Bliste Verified 12/21/23 14:41 r Current Medications Generic Name Dose Route Start Last Admin Trade Name Freq PRN Reason Stop Dose Admin Sodium Chloride 1,000 mls @ 30 mls/hr 12/24/23 09:45 12/24/23 10:09 Sodium Chloride 0.9% IV 12/25/23 09:44 30 mls/hr .Q24H CRYSTAL Administration PFSH Anesthesia Medical History HTN (hypertension) Hip fracture Type II diabetes mellitus, well controlled Diabetes Chronic kidney disease, stage 4 (severe) Tibial plateau fracture, right Closed fracture of tibial plateau Fall Femoral neck fracture Myocardial infarction UTI (urinary tract infection) CAD (coronary artery disease) Surgical History History of knee surgery History of tubal ligation History of cholecystectomy Social History Smoking and tobacco/nicotine status: former use of tobacco/nicotine (stopped in 1994) Data Anesthesia 12/24/23 10:35 BMP 12/24/23 10:06 Sodium Cancelled Potassium Cancelled Chloride Cancelled Carbon Dioxide Cancelled BUN Cancelled Creatinine Cancelled Glucose Cancelled Calcium Cancelled Cardiac Studies: 2 No Data to Display
[2023-12-24 11:15] LABS: Anion Gap 19.8 (5-19); Blood Urea Nitrogen 48 mg/dL (8-23); Calcium 9.9 mg/dL (8.5-10.5); Carbon Dioxide 26 mmol/L (22-29); Chloride 94 mmol/L (98-107); Creatinine Clr Calc Pharmacy 16.8056; Glucose 288 mg/dL (65-115); Osmolality Calculated 305 mOsm/kg (285-295); Potassium 3.8 mmol/L (3.5-5.1); Sodium 136 mmol/L (136-145)
[2023-12-24] MEDS: ceFAZolin 2,000 mg SDV 2000 MG IVP (11:23)
[2023-12-24 12:07] LABS: Blood Urine 3+ (Negative); Glucose Urine UA Trace (Normal); Ketones Urine 1+ (Negative); Nitrate Urine Negative (Negative); Protein Urine 3+ (Negative); Urine Appearance Cloudy (CLEAR); Urine Color Yellow (Yellow); pH Urine 7 (5-7)
[2023-12-24 12:08] LABS: Add Urine Culture? Yes; Add Urine Microscopic? YES; Bacteria Urine 2+ /hpf; Bilirubin Urine Neg (Negative); Leukocyte Esterase Urine 2+ (Negative); Urobilinogen Urine Norm (Negative); WBC Urine TOO NUMEROUS TO CNT /hpf (0-5)
--- NOTE | 2023-12-24 13:10 | ANE.PACU2 ---
Inpatient post-anesthesia follow up: Airway intact: Yes Vital signs: Temperature 97.3 F Pulse Rate 67 Respiratory Rate 18 Blood Pressure 143/75 Pulse Oximetry 98 Oxygen Delivery Me thod Room Air Oxygen Flow Rate 5 Fraction of Inspir ed Oxygen Hydration adequate: Yes Nausea and vomiting: No Pain level: 1 Mental status: Baseline Additional Comments: Surgery aborted after placing grey and UOP was noted to be visibly purulent
== END 2023-12-24 13:13 | disposition home or self-care (01) ==
PROVIDERS: PCP Nurse Practitioner Family; Visit Provider Orthopaedic Surgery
DX: T84.124A Displacement of internal fixation device of right femur, initial encounter; Y79.8 Miscellaneous orthopedic devices associated with adverse incidents, not elsewhere classified; Z87.891 Personal history of nicotine dependence; N39.0 Urinary tract infection, site not specified; Z53.09 Procedure and treatment not carried out because of other contraindication; B96.1 Klebsiella pneumoniae [K. pneumoniae] as the cause of diseases classified elsewhere
CPT/HCPCS: 36415; 36416; 80048; 81001; 82962; 87077; 87086; 87186; J0131; J0330; J0690; J1100; J2405; J2704; J3010; J3490; J7030

== ENCOUNTER → 2024-01-09 08:19 | Outpatient (BNVA) | payer MEDICARE, SELFPAY | PROVIDERS: PCP Nurse Practitioner Family; Visit Provider Nurse Practitioner Family | DX: R30.0 Dysuria (principal) | CPT/HCPCS: 81000; 81015 ==

== ENCOUNTER 2024-01-11 10:15 | Inpatient (IN) | payer MEDICARE, SELFPAY ==
--- OUTSIDE RECORDS SUMMARY | 2024-01-10 11:21 | XMS_ITS | Patient Health Record ---
Author Name Unknown Organization [facility] Address [address] [place] [address] Support Name Relationship Address Phone Chyna Bettencourt Guarantor Unknown [phone] Allergies Allergen (clinical drug ingredient) Drug/Non Drug [...]
[2024-01-11] VITALS (17 sets, daily range): BP systolic 88–174; BP diastolic 42–85; PULSE 51–69; RESP 10–18; TEMP 36.2–37; O2SAT 93–99; BMI 29.8; BMI 30.8
--- OUTSIDE RECORDS SUMMARY | 2024-01-11 05:37 | XMS_ITS | Patient Health Record ---
Author Name Unknown Organization [facility] Address [address] [place] [address] Support Name Relationship Address Phone Chyna Bettencourt Guarantor Unknown [phone] Allergies Allergen (clinical drug ingredient) Drug/Non Drug [...]
[2024-01-11 06:25] LABS: Glucose Point of Care 111 mg/dL (70-110)
--- NOTE | 2024-01-11 06:39 | W.PM.OPSUD ---
Surgery/Procedure H&P Update DATE OF PROCEDURE: January 11, 2024 DATE H&P PERFORMED: 12/28/23 H&P UPDATE INFORMATION: I have reviewed H&P completed within last 30 days, I have examined patient prior to procedure and No changes to prior documentation PLANNED PROCEDURE: Operation Date: 01/11/24 07:00 Proposed Procedures p Hemiarthroplasty Hip(Right) - Donny Fabian DO
[2024-01-11] MEDS: sodium chloride 0.9% 1,000 ML 30 ML IV (06:43)
[2024-01-11 06:48] LABS: Blood Urea Nitrogen 44 mg/dL (8-23); Carbon Dioxide 27 mmol/L (22-29); Chloride 99 mmol/L (98-107); Creatinine Clr Calc Pharmacy 23.6806; Glomerular Filtration Rate 22.3 mL/min (90-130); Glucose 124 mg/dL (65-115); Osmolality Calculated 303 mOsm/kg (285-295); Sodium 140 mmol/L (136-145)
--- NOTE | 2024-01-11 06:50 | ANES.PAUD2 ---
Pre-Anesthetic Update Pre-Anesthetic Assessment: Date of Surgery/Procedure: 01/11/24 Proposed Procedure: Operation Date: 01/11/24 07:00 Proposed Procedures p Hemiarthroplasty Hip(Right) - Donny Fabian, DO Any changes to Pre-Anesthetic Assessment?: No Last Intake: Intake Last Liquid Date 01/10/24 Last Liquid Time 23:50 Last Solid Date 01/10/24 Last Solid Time 17:00 Labs Last 48hrs: BMP 01/11/24 06:15 Sodium 140 Chloride 99 Carbon Dioxide 27 Calcium 10.0 Vitals: Temperature 97.4 F L 01/11/24 06:18 Temperature Source Temporal Artery S can 01/11/24 06:18 Pulse Rate 60 01/11/24 06:18 Respiratory Rate 16 01/11/24 06:18 Blood Pressure 174/85 01/11/24 06:18 Blood Pressure Rosetta n 114 01/11/24 06:18 Pulse Oximetry 96 01/11/24 06:18 Oxygen Delivery Me thod Room Air 01/11/24 06:18 Exam: Pre-Anes Outpt Exam: alert, oriented x 3, clear to auscultation bilaterally and regular rate & rhythm Cardiac Studies: No Data to Display
[2024-01-11 06:52] LABS: Anion Gap 17.8 (5-19); Potassium 3.8 mmol/L (3.5-5.1)
[2024-01-11] MEDS: ceFAZolin 2,000 mg SDV 2000 MG IVP ×3 (06:59→22:23)
--- NOTE | 2024-01-11 08:15 | XR_ITS ---
WS: [id number] XR hip RT 1V wo/w pel [id number] REASON FOR EXAM: hip FINDINGS: Femoral component of total right hip arthroplasty in place. The prosthesis is intact and in proper po sition and alignment. XR/XR hip RT 1V wo/w pel [id number] IMPRESSION: Femoral component of total right hip arthroplasty without abnormality.
--- NOTE | 2024-01-11 09:24 | XR_ITS ---
WS: [id number] XR hip RT 1V wo/w pel [id number] REASON FOR EXAM: post op FINDINGS: Total right hip arthroplasty. Surgical alteration of the intertrochanteric region and greater trochanter. The components of the hip arthroplasty are intact and in proper position and alignment. XR/XR hip RT 1V wo/w pel [id number] IMPRESSION: Total right hip arthroplasty without abnormality.
--- NOTE | 2024-01-11 09:28 | PM.OP ---
Operative Report Date of procedure: January 11, 2024 Pre-op diagnosis: Failure of hardware and right femoral neck fracture Post-op diagnosis: same Procedure done: 1. Right hip hemiarthroplasty 2. Hardware removal from right hip deep Surgeon: Donny aFbian DO Estimated blood loss (mL): 50 Procedure: 1. Right hip hemiarthroplasty 2. Hardware removal from right hip deep Patient will do a procedure after undergoing anesthesia placed in the lateral cubitus position with right side up. Patient is prepped draped normal sterile fashion. All areas impingement well-padded. Skin incisions made over the right hip using a modified Marie approach incision was brought through the previous cannulated screw incision. IT band was split. The cannulated screws were identified. The 3 screws were then removed. As well as a washer. Next tension was brought to perform the hip hemiarthroplasty. This point the abductors and capsule taken down anteriorly. Hip was dislocated and femoral neck cut was made approximate fingerbreadth above the lesser trochanter. The head was removed and then measured to be 44 next tension was brought to the femur. The estimator paperboard boxes was used followed by the canal finder followed by the lateralizer. A size 2 stem was inserted. This was tight attempts were made to get bigger using reamers and at this size 2 was the the size of it. This point it was decided to do a cemented stem. I disc spacer was placed to prevent cement from going further followed by using a size 2 [place] cemented stem. Stem was placed held for 14 minutes in position. The hip was then trialed with a 44 head negative for with neck length. This was felt good. And then the actual prosthesis placed the head was then tapped onto the Flores taper and reduced in position felt to be stable in all positions. Wounds were irrigated. The capsule and abductors were repaired with FiberWire and then the IT band was closed with 0 Vicryl and then skin was closed with 2-0 Vicryl and dory. Sterile dressings were applied patient was transferred to the PACU in stable condition.
--- NOTE | 2024-01-11 10:15 | ANE.PACU2 ---
Inpatient post-anesthesia follow up: Airway intact: Yes Vital signs: Temperature 98.0 F Pulse Rate 54 Respiratory Rate 16 Blood Pressure 107/63 Pulse Oximetry 95 Oxygen Delivery Me thod Room Air Oxygen Flow Rate Fraction of Inspir ed Oxygen Hydration adequate: Yes Nausea and vomiting: No Pain level: 1 Mental status: Baseline
[2024-01-11] MEDS: ketorolac 30 mg/mL INJ 15 MG IVP ×2 (11:14→19:15)
[2024-01-11] MEDS: sodium chloride 0.9% 1,000 ML 80 ML IV ×2 (11:15→22:29)
[2024-01-11] MEDS: ondansetron 4 MG Tablet PO ×2 (11:15→22:22)
[2024-01-11 12:01] LABS: Glucose Point of Care 307 mg/dL (70-110)
[2024-01-11] MEDS: HYDROcodone-acetaminophen 5-325 mg Tablet PO ×2 (14:27→22:21)
[2024-01-11 16:57] LABS: Glucose Point of Care 488 mg/dL (70-110)
[2024-01-11] MEDS: insulin lispro 100 unit/1 mL SUBCUT ×2 (17:01→20:51)
[2024-01-11] MEDS: magnesium oxide 400 mg tablet 200 MG PO (17:02)
[2024-01-11] MEDS: famotidine 20 mg Tablet 40 MG PO (17:02)
[2024-01-11] MEDS: pantoprazole DR 40 mg Tablet PO (17:03)
[2024-01-11 18:14] LABS: Glucose Point of Care 407 mg/dL (70-110)
[2024-01-11] MEDS: insulin lispro 100 unit/1 mL 14 UNIT SUBCUT (18:48)
[2024-01-11 20:47] LABS: Glucose Point of Care 398 mg/dL (70-110)
[2024-01-12] MEDS: ketorolac 30 mg/mL INJ 15 MG IVP ×2 (01:21→11:14)
[2024-01-12 03:56] VITALS: BP 140/72; PULSE 81; RESP 17; TEMP 36.8; O2SAT 96
[2024-01-12] MEDS: ceFAZolin 2,000 mg SDV 2000 MG IVP (06:10)
[2024-01-12] MEDS: ondansetron 4 MG Tablet PO (06:11)
[2024-01-12] MEDS: HYDROcodone-acetaminophen 5-325 mg Tablet PO ×2 (06:24→11:15)
[2024-01-12 06:27] LABS: Glucose Point of Care 182 mg/dL (70-110)
[2024-01-12 07:19] VITALS: BP 109/59; PULSE 67; RESP 15; TEMP 36.9; O2SAT 93
[2024-01-12] MEDS: insulin lispro 100 unit/1 mL 10 UNIT SUBCUT (08:13)
[2024-01-12] MEDS: insulin lispro 100 unit/1 mL SUBCUT ×2 (08:24→12:27)
[2024-01-12] MEDS: labetalol 200 mg Tablet 100 MG PO (08:26)
[2024-01-12] MEDS: magnesium oxide 400 mg tablet 200 MG PO (08:26)
[2024-01-12] MEDS: famotidine 20 mg Tablet 40 MG PO (08:26)
[2024-01-12] MEDS: atorvastatin 40 mg Tablet PO (08:26)
[2024-01-12] MEDS: hydroCHLOROthiazide 25 mg Tablet 50 MG PO (08:26)
[2024-01-12] MEDS: pantoprazole DR 40 mg Tablet PO (08:26)
[2024-01-12] MEDS: potassium chloride ER 20 mEq Tablet PO (08:26)
[2024-01-12] MEDS: allopurinol 100 mg Tablet PO (08:27)
[2024-01-12] MEDS: amlodipine 10 mg Tablet PO (08:27)
[2024-01-12] MEDS: loratadine 10 mg Tablet PO (08:27)
[2024-01-12] MEDS: FUROsemide 40 mg Tablet PO (08:27)
[2024-01-12 11:05] VITALS: BP 116/70; PULSE 66; RESP 16; TEMP 36.8; O2SAT 98
[2024-01-12 11:48] LABS: Glucose Point of Care 142 mg/dL (70-110)
[2024-01-12 12:47] VITALS: BP 116/70; PULSE 66; RESP 16; TEMP 36.8; O2SAT 98
--- NOTE | 2024-01-14 14:28 | P.DS_ITS ---
Discharge Providers Date of Admission: 01/11/24 10:15 Date of Discharge: January 12, 2024 Attending Provider at Admission: Donny Fabian DO Attending Provider at Discharge: Donny Fabian DO Primary Care Provider: Preeti Silva NP Reason for Visit Reason for Visit: S72.001D Physical Exam Urinary Catheter Management: Blas Latex: Cath Placed During This Visit: yes, but has since been removed by the nurse Reason for Continuing Indwelling Catheter: Required Immobilization for Trauma or Surgery or Anesthesia Urinary Catheter Date of Insertion: 01/11/24 Urinary Catheter Time of Insertion: 07:25 Date Urinary Catheter Removed: 01/12/24 Time Urinary Catheter Discontinued: 06:33 Discharge Data Studies Completed and Pending Completed Studies During Hospitalization Category Date Time Status XR hip RT 1V wo/w pel [id number] Routine Exams 01/11/24 08:15 Completed XR hip RT 1V wo/w pel [id number] Routine Exams 01/11/24 09:24 Completed Radiology Impressions Hip X-Ray 01/11/24 09:24 IMPRESSION: Total right hip arthroplasty without abnormality. Laboratory Results Sodium 140 mmol/L (136-145) 01/11/24 06:15 Potassium 3.8 mmol/L (3.5-5.1) 01/11/24 06:15 Chloride 99 mmol/L (98-107) 01/11/24 06:15 Carbon Dioxide 27 mmol/L (22-29) 01/11/24 06:15 Anion Gap 17.8 (5-19) 01/11/24 06:15 BUN 44 mg/dL (8-23) H 01/11/24 06:15 Creatinine 2.2 mg/dL (0.5-0.9) H 01/11/24 06:15 GFR Calculation 22.3 mL/min (90-130) L 01/11/24 06:15 Glucose 124 mg/dL (65-115) H 01/11/24 06:15 POC Glucose 142 mg/dL (70-110) H 01/12/24 11:08 Calculated Osmolality 303 mOsm/kg (285-295) H 01/11/24 06:15 Calcium 10.0 mg/dL (8.5-10.5) 01/11/24 06:15 Vitals Last Vital Signs Temp 98.3 F 01/12/24 12:47 Pulse 66 01/12/24 12:47 Resp 16 01/12/24 12:47 BP 116/70 01/12/24 12:47 Pulse Ox 98 01/12/24 12:47 O2 Del Method Room Air 01/12/24 11:05 Discharge Plan Discharge Patient Disposition: Home Condition: Stable Prescriptions: New hydrocodone-acetaminophen 5-325 mg tablet 1 - 2 tab PO .Q4-6H Qty: 40 0RF Continued magnesium oxide 400 mg magnesium tablet 250 mg PO BID (DME) 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 See Rx Instructions .Route Qty: 1 0RF Rx Instructions: 1 CGM and all required supplies As directed furosemide 40 mg tablet 40 mg PO DAILY 90 Days Qty: 90 1RF hydrochlorothiazide 50 mg tablet 50 mg PO DAILY 90 Days Qty: 90 1RF loratadine 10 mg tablet 10 mg PO DAILY 90 Days Qty: 90 1RF allopurinol 100 mg tablet 100 mg PO DAILY Qty: 90 1RF amlodipine 10 mg tablet 10 mg PO DAILY 90 Days Qty: 90 1RF atorvastatin 40 mg tablet 40 mg PO DAILY 90 Days Qty: 90 1RF clopidogrel 75 mg tablet 75 mg PO DAILY 90 Days Qty: 90 1RF labetalol 100 mg tablet 100 mg PO DAILY 90 Days Qty: 90 1RF pantoprazole [Protonix] 40 mg tablet,delayed release (DR/EC) 40 mg PO BID 30 Days Qty: 60 3RF tizanidine 4 mg tablet 4 mg PO .QHS PRN (Reason: muscle spasticity) Qty: 30 3RF hydrocodone-acetaminophen 5-325 mg tablet 1 tab PO Q8H PRN (Reason: pain) 30 Days Qty: 90 0RF ondansetron HCl 4 mg tablet 4 mg PO Q6H PRN (Reason: nausea and vomiting) Qty: 90 0RF famotidine 40 mg tablet 40 mg PO BID Rx Instructions: Take 1 tablet by mouth twice daily potassium chloride 20 mEq tablet extended release 20 meq PO DAILY Rx Instructions: Take 1 tablet by mouth once daily Novolin R Regular U100 Insulin 100 unit/mL Solution 10 unit SUBCUT DAILY Rx Instructions: Patient states she takes this over the counter as directed by diabetes . takes medication at noon Discharge Orders: Discharge Order (Routine); Ordered 01/12/24 Ordered By: Donny Fabian Referrals: Silva,Preeti, DRAFTING ENGINEER [Primary Care Provider] - (We have notified your physician's clinic of the need for a follow-up appointment to be scheduled. If you have not heard from them within the next 2 business days, please call them directly. ) Donny Fabian DO [Physician] - 1 week (We have notified your physician's clinic of the need for a follow-up appointment to be scheduled. If you have not heard from them within the next 2 business days, please call them directly. ) Discharge Diet: Advance as tolerated Discharge Activity: Limit activity as instructed Patient Instructions: Hydrocodone/Acetaminophen (By mouth), Acute Wound Care (DC), Total Hip Replacement (GEN), Joint Replacement Stoplight, Opioid Safety, Post Anesthesia Care Activity Restrictions/Additional Instructions: You are being discharged from the hospital today during which time you have been under the care of Dr. Fabian. You had a femoral neck fracture. You were treated for this injury with hemiarthroplasty. You may resume you normal diet (including any special diets as directed by your primary doctor) as well as your home medications. You should follow up with you primary doctor if you have any questions regarding medication you took prior to your stay in the hospital. You may take your pain medication as prescribed. After the first few days, take your pain medication as needed. Do not drive or drink alcohol while taking your pain medication. Your injury may increase your risk of developing a blood clot,or DVT, in your arm or leg. This could potentially dislodge and travel to your lungs and become a life threatening condition called apulmonary embolus,or PE. You have been prescribed continue your Plavix to be taken to prevent this. Frequent movement of the move legs will also help prevent this from occurring. If you develop any new or worsening cough, chestpain, bloody sputum or shortness of breath, call 911 or go to the EmergencyRoom. Always keep your surgical incision/dressing clean and dry. If you experience increasing pain at your incision site, redness, swelling, increasing discharge, foul odors, or fevers (greater than 100.4), night sweats or chills you should call the office at the above number. If you feel this is an emergency you should be evaluated in the Emergency Department of a nearby hospital. Orthopedic Patient Instructions Summary: Weight Bearing: As tolerated Activity: As tolerated. Diet: Regular. Splint Care: . Wound Care: Keep dressing clean and dry. Anticoagulation: Plavix Pain Medication: Take only as needed. Ice, rest and elevation will be of great benefit. Please plan to follow-up [facility] Dr Fabian in 1 weeks. You will need to call the clinic [phone] to schedule this visit. Thank you far allowing me to participate in your care. Do not hesitate to call the office with any questions or concerns. Discharge Attestations Time Spent in Discharge Care*: less than 30 min Quality Metrics Clinical Quality Measures [ No reported AMI, CVA or VTE this stay] Coding Level of Care Code Acute Code for g Shmuel
== END 2024-01-12 12:48 | disposition home or self-care (01) | DRG 470 ==
LOC: MEDSURG 11:25
PROVIDERS: Anesthesiology; Admitting Provider Orthopaedic Surgery; PCP Nurse Practitioner Family; Visit Provider Orthopaedic Surgery
PROC: 0SRR019 Replacement of Right Hip Joint, Femoral Surface with Metal Synthetic Substitute, Cemented, Open Approach (ICD-10-PCS; CPT 27125; principal; 2024-01-11 07:00)
DX: T84.84XA Pain due to internal orthopedic prosthetic devices, implants and grafts, initial encounter (principal); N18.4 Chronic kidney disease, stage 4 (severe); Y79.8 Miscellaneous orthopedic devices associated with adverse incidents, not elsewhere classified; E78.00 Pure hypercholesterolemia, unspecified; I12.9 Hypertensive chronic kidney disease with stage 1 through stage 4 chronic kidney disease, or unspecified chronic kidney disease; E11.22 Type 2 diabetes mellitus with diabetic chronic kidney disease; I25.10 Atherosclerotic heart disease of native coronary artery without angina pectoris; K21.9 Gastro-esophageal reflux disease without esophagitis; Z79.02 Long term (current) use of antithrombotics/antiplatelets; I25.2 Old myocardial infarction; Z87.440 Personal history of urinary (tract) infections; Z79.4 Long term (current) use of insulin
CPT/HCPCS: 36415; 36416; 51702; 73501; 80048; 81000; 81015; 82962; 96372; 97110; 97116; 97161; 97165; 97530; C1713; C1776; J0690; J1100; J1815; J1885; J2405; J2704; J3010; J3490; J7030; Q0162

== ENCOUNTER → 2024-01-17 17:17 | Outpatient (BNVA) | payer MEDICARE, SELFPAY | PROVIDERS: PCP Nurse Practitioner Family; Visit Provider Nurse Practitioner Family | DX: E11.9 Type 2 diabetes mellitus without complications (principal) | CPT/HCPCS: 80053; 83036; 85025 ==

== ENCOUNTER → 2024-01-22 13:11 | Outpatient (BNVA) | payer MEDICARE, SELFPAY | PROVIDERS: PCP Nurse Practitioner Family; Visit Provider Orthopaedic Surgery | DX: Z98.890 Other specified postprocedural states (principal) | CPT/HCPCS: 73502; 99024 ==

== ENCOUNTER → 2024-02-19 12:46 | Outpatient (BNVA) | payer MEDICARE, SELFPAY | PROVIDERS: PCP Nurse Practitioner Family; Visit Provider Orthopaedic Surgery | DX: S72.001D Fracture of unspecified part of neck of right femur, subsequent encounter for closed fracture with routine healing (principal); X58.XXXD Exposure to other specified factors, subsequent encounter | CPT/HCPCS: 73502; 99024 ==

== ENCOUNTER → 2024-04-01 12:45 | Outpatient (BNVA) | payer MEDICARE, SELFPAY | PROVIDERS: PCP Nurse Practitioner Family; Visit Provider Orthopaedic Surgery | DX: S72.001D Fracture of unspecified part of neck of right femur, subsequent encounter for closed fracture with routine healing (principal); X58.XXXD Exposure to other specified factors, subsequent encounter | CPT/HCPCS: 73502; 99024 ==

== ENCOUNTER 2025-05-08 11:29 | Outpatient (CLI) | payer MEDICARE, SELFPAY ==
--- NOTE | 2025-05-08 11:41 | USR_ITS ---
PROCEDURE INFORMATION: Exam: US Duplex Bilateral Lower Extremity Arteries Exam date and time: 05/08/2025 12:14 PM Age: 69 years old Clinical indication: Condition or disease; Other: Toe ulcers; Additional info: Pain in R foot/toe(s)/type 2 diabetes w/foot ulcer, stat TECHNIQUE: Imaging protocol: Real-time ultrasound scan of the arteries of the bilateral lower extremities with 2-D plummer scale, color Doppler flow and spectral waveform analysis. Images documented and saved. COMPARISON: CT hip RT wo con* [id number] 09/08/2023 6:30 PM FINDINGS: Right common femoral artery: No occlusion or significant stenosis. Triphasic waveform. Proximal peak systolic velocity 102 cm/second. Right superficial femoral artery: No occlusion or significant stenosis. Triphasic waveform. Proximal peak systolic velocity 107 cm/second. Mid SFA peak systolic velocity 114 cm/second. Distal peak systolic velocity 86 cm/second. Right popliteal artery: No occlusion or significant stenosis. Triphasic waveform. Peak systolic velocity 78 cm/second. Right calf/foot arteries: Right FLOATER OPERATOR peak systolic velocity 78 cm/second. Abnormal monophasic waveform. Right DPA peak systolic velocity 46 cm/second. Abnormal monophasic waveform. Left common femoral artery: No occlusion or significant stenosis. Triphasic waveform. Peak systolic velocity: 80 cm/second. Left superficial femoral artery: No occlusion or significant stenosis. Triphasic waveform. Peak systolic velocity 104 cm/second. Left popliteal artery: No occlusion or significant stenosis. Triphasic waveform. Peak systolic velocity 93 cm/second. Left calf/foot arteries: FLOATER OPERATOR peak systolic velocity 32 cm/second, abnormal monophasic waveform. Left DPA peak systolic velocity 94 cm/second. Biphasic waveform. US/CV arterial duplex [facility] [id number] IMPRESSION: 1. No occlusion or hemodynamically significant stenosis along the common femoral, superficial femoral and popliteal arteries, all demonstrating triphasic waveforms. 2. Abnormal monophasic distal waveforms in the right posterior tibial artery and right dorsalis pedis artery. 3. Abnormal monophasic waveform in the left posterior tibial artery, with preserved biphasic waveform patent left dorsalis pedis artery.
== END 2025-05-08 11:30 | disposition home or self-care (01) ==
LOC: RAD 11:34
PROVIDERS: PCP Nurse Practitioner Family; Visit Provider Internal Medicine
DX: M79.671 Pain in right foot (principal); M79.674 Pain in right toe(s); E11.621 Type 2 diabetes mellitus with foot ulcer; R93.6 Abnormal findings on diagnostic imaging of limbs
CPT/HCPCS: 93925

== ENCOUNTER 2025-05-12 15:34 | Inpatient (IN) | payer MEDICARE, SELFPAY ==
--- NOTE | 2025-05-12 15:35 | XR_ITS ---
WS: [id number] XR foot RT min 3V* [id number] REASON FOR EXAM: foot pain FINDINGS: No acute fracture or focal bone lesion. No periosteal reaction or bone erosion. Mild valgus subluxation of the first MTP and DIP joint. Severe subluxations of the PIP joints. Joint spaces of the midfoot and hindfoot are intact and relatively well preserved. Extensive arterial vascular calcifications. XR/XR foot RT min 3V* [id number] IMPRESSION: Forefoot subluxations. No acute bone or joint abnormality identified.
[2025-05-12 15:52] VITALS: BP 127/72; PULSE 62; RESP 18; TEMP 37; O2SAT 97
[2025-05-12 18:08] LABS: Hematocrit 34.2 % (36-47); Hemoglobin 11.00 g/dL (11.27-16.99); Mean Corpuscular HGB Conc 32.2 g/dL (30-55); Mean Corpuscular Hemoglobin 28.8 pg (27-33); Mean Corpuscular Volume 89.5 fl (85-98); Nucleated Red Blood Cells % 0 %; Platelet Count 540 10^3/cmm (157-399); Red Blood Count 3.82 10^6/uL (3.85-5.65); White Blood Count 18.49 10^3/uL (3.29-11.43)
[2025-05-12 18:33] LABS: Alanine Aminotransferase < 5 U/L (0-33); Albumin Level 3.5 g/dL (3.5-5.2); Alkaline Phosphatase 109 U/L (35-105); Anion Gap 18.8 (5-19); Aspartate Amino Transferase 5 U/L (0-32); Blood Urea Nitrogen 54 mg/dL (8-23); Calcium 9.9 mg/dL (8.5-10.5); Carbon Dioxide 18 mmol/L (22-29); Chloride 104 mmol/L (98-107); Globulin 4.5 g/dL (1.3-4.6); Glucose 112 mg/dL (65-115); Osmolality Calculated 300 mOsm/kg (285-295); Potassium 3.8 mmol/L (3.5-5.1); Sodium 137 mmol/L (136-145); Total Protein 8.0 g/dL (6.6-8.7)
--- NOTE | 2025-05-12 18:58 | W.ED.GENADLT ---
HPI - General Adult General: Chief complaint: General Medical Stated complaint: right foot big toe infection Time Seen by Provider: 05/12/25 18:57 History of Present Illness: 69-year-old female presents emergency room with her right great toe pain. She states she has an ulcer on her toe and has been hurting it is getting progressively worse. She has had some swelling and redness. She says it has been going on for several weeks she is now developed drainage and worsening of the pain. She is in walking on her heel to avoid pressure in the toe. Denies fever sweats or chills Associated symptoms: Deny chest pain, dyspnea or rash Related Data Home Medications ?Medication ?Instructions ?Recorded ?Confirmed insulin regular human 100 unit/mL 10 unit SUBCUT DAILY 12/21/23 05/13/25 injection solution (Novolin R Regular U-100 Insulin) amoxicillin 875 mg-potassium 1 tab PO BID 05/13/25 05/13/25 clavulanate 125 mg tablet hydrocodone 5 mg-acetaminophen 325 1 tab PO Q8H PRN Pain 05/13/25 05/13/25 mg tablet insulin NPH isoph U-100 human 100 10 unit SUBCUT .@NOON 05/13/25 05/13/25 unit/mL subcutaneous suspension (Humulin N NPH U-100 Insulin (isophane susp)) spironolactone 25 1 tab PO DAILY 05/13/25 05/13/25 mg-hydrochlorothiazide 25 mg tablet Previous Rx's ?Medication ?Instructions ?Recorded 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,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,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 ea 08/08/22 ([employer]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) allopurinol 100 mg tablet 100 mg PO DAILY #90 tabs 02/11/24 amlodipine 10 mg tablet 10 mg PO DAILY 90 days #90 tabs 02/11/24 atorvastatin 40 mg tablet 40 mg PO DAILY 90 days #90 tabs 02/11/24 clopidogrel 75 mg tablet 75 mg PO DAILY 90 days #90 tabs 02/11/24 famotidine 40 mg tablet 40 mg PO BID 90 days #180 tabs 02/11/24 furosemide 40 mg tablet 40 mg PO DAILY 90 days #90 tabs 02/11/24 labetalol 100 mg tablet 100 mg PO DAILY 90 days #90 tabs 02/11/24 loratadine 10 mg tablet 10 mg PO DAILY 90 days #90 tabs 02/11/24 ondansetron HCl 4 mg tablet 4 mg PO Q6H PRN nausea and 02/11/24 vomiting #90 tabs pantoprazole 40 mg tablet,delayed 40 mg PO BID 90 days #180 tabs 02/11/24 release (Protonix) tizanidine 4 mg tablet 4 mg PO .QHS PRN muscle spasticity 02/11/24 90 days #90 tabs Allergies Allergy/AdvReac Type Severity Reaction Status Date / Time codeine Allergy ADR-Vomitin Verified 02/19/24 13:07 g Iodinated Contrast Media Allergy ALGY-Bliste Verified 02/19/24 13:07 r Review of Systems Const: Denies: fever(s) or chills Card: Denies: chest pain Resp: Denies: dyspnea GI: Denies: abdominal pain : Denies: dysuria, urinary frequency or urinary urgency Musc: Reports: other (Ulcer on the right great toe); Denies: neck pain or back pain Skin/Breast: Denies: rash PFSH ED PFSH: Medical History Hyperlipidemia Hypertension HTN (hypertension) Hip fracture Type II diabetes mellitus, well controlled Diabetes Chronic kidney disease, stage 4 (severe) Tibial plateau fracture, right Closed fracture of tibial plateau Fall Femoral neck fracture Myocardial infarction UTI (urinary tract infection) CAD (coronary artery disease) Surgical History History of knee surgery History of tubal ligation History of cholecystectomy Social History Smoking and tobacco/nicotine status: former use of tobacco/nicotine Quit status (tobacco/nicotine): has quit using Year quit tobacco: 1997 Alcohol intake: never Substance/Drug Use: never Additional social history: She wants DNR status as discussed with Jim Yadav MD and her on 05/12/2025 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 Physical Exam Const: GENERAL APPEARANCE: cooperative ORIENTATION/CONSCIOUSNESS: Yes awake, Yes oriented to person, Yes oriented to place and Yes oriented to time HENMT: COMMON NORMALS: normocephalic, atraumatic and hearing grossly normal bilaterally HEAD & SCALP: normocephalic and atraumatic Resp: COMMON NORMALS: normal respiratory effort, No retractions, No use of accessory muscles and clear to auscultation bilaterally AUSCULTATION: clear to auscultation bilaterally Cardio: COMMON NORMALS: regular rate, regular rhythm and No murmurs present (Cardio) RATE: regular rate RHYTHM: regular rhythm GI: COMMON NORMALS: Soft to palpation and No hepatosplenomegaly present AUSCULTATION: Yes normoactive bowel sounds PALPATION: Yes Soft to palpation, No Tenderness to palpation present (GI), No Guarding due to palpation present (GI) and Yes No hepatosplenomegaly present Extremity: COMMON NORMALS: no clubbing, cyanosis or edema, no calf tenderness and no pedal edema OTHER: Neuro: SENSORIUM/ORIENTATION: Yes oriented to person, Yes oriented to place and Yes oriented to time Skin: COMMON NORMALS: no rashes or lesions noted GENERAL SKIN EXAM: no rashes or lesions noted Course Vital Signs: Vital signs: Vital Signs Temperature 98.1 F 05/18/25 08:13 Pulse Rate 64 05/18/25 08:13 Respiratory Rate 18 05/18/25 08:13 Blood Pressure 121/52 05/18/25 08:13 Pulse Oximetry 94 05/18/25 08:13 Oxygen Delivery Me thod Room Air 05/18/25 08:13 Oxygen Flow Rate 10 05/14/25 12:54 MDM - General Adult Medical Decision Making Medical decision making Social determinants: Needs assistance with receiving medical care for transportation and getting her medications I reviewed the patient's medical record. I reviewed the patient's current home meds. Alternate historians: None Differential diagnosis: Cellulitis osteomyelitis diabetic foot ulcer Lab Review:White count 18,000 hemoglobin 11 platelets 540. Sed rate 53. Chemistries show creatinine of 3.5 BUN 54 alk phos 109 CRP 50 lactic acid 1.5. Imaging:X-ray severe osteoarthritic changes suspect cortical defect of the dorsum of the distal phalanx Assessment of risk Level of risk: High Hospitalization considerations: Hospitalization for cellulitis and suspected osteomyelitis Reexamination: Unchanged Assessment and plan: Patient not septic this time clearly does have a cellulitis with acute kidney injury additionally suspicious of osteomyelitis likely chronic given the length of time she has had this. Discussed with podiatry on-call also discussed with hospitalist will admit IV antibiotics initiated Lab Data 05/17/25 03:30 05/17/25 03:30 Radiology Impressions Foot X-Ray 05/12/25 15:35 IMPRESSION: Forefoot subluxations. No acute bone or joint abnormality identified. Foot MRI 05/13/25 08:00 IMPRESSION: 1. Soft tissue ulcer at the medial distal aspect of the great toe, series 801, image 17, extending to the medial inferior aspect of the base of the distal phalanx of the great toe. 2. Findings of osteomyelitis of the proximal and distal phalanx bones of the great toe. 3. Fluid collection within the subcutaneous soft tissue of the plantar aspect of the foot underlying the 1st metatarsal bone and medial cuneiform, extending 7.1 cm in length, 3.9 cm in transverse dimension and 0.9 cm in craniocaudal dimension, series 1101 image 8 and series 601, image 16. Infected fluid is not excluded. 4. Tendinopathy and tenosynovitis of the flexor digitorum longus tendon at the level of the 1st metatarsal mid diaphysis, series 1101, image 7. This is adjacent to the previously described plantar fluid collection and infectious tenosynovitis cannot be excluded. Laboratory Results WBC 18.49 10^3/uL (3.29-11.43) H 05/12/25 17:54 RBC 3.82 10^6/uL (3.85-5.65) L 05/12/25 17:54 Hgb 11.00 g/dL (11.27-16.99) L 05/12/25 17:54 Hct 34.2 % (36-47) L 05/12/25 17:54 MCV 89.5 fl (85-98) 05/12/25 17:54 MCH 28.8 pg (27-33) 05/12/25 17:54 MCHC 32.2 g/dL (30-55) 05/12/25 17:54 RDW 14.1 % (12.1-15.1) 05/12/25 17:54 Plt Count 540 10^3/cmm (157-399) H 05/12/25 17:54 MPV 10.2 fL (7.4-10.4) 05/12/25 17:54 Neut % (Auto) 83.2 % 05/12/25 17:54 Lymph % (Auto) 6.9 % 05/12/25 17:54 [place] % (Auto) 7.6 % 05/12/25 17:54 Eos % (Auto) 0.4 % 05/12/25 17:54 Baso % (Auto) 0.4 % 05/12/25 17:54 Neut # (Auto) 15.40 10^3/uL (1.8-7.7) H 05/12/25 17:54 Lymph # (Auto) 1.3 10^3/uL (0.8-4.8) 05/12/25 17:54 [place] # (Auto) 1.4 10^3/uL (0.2-0.9) H 05/12/25 17:54 Eos # (Auto) 0.1 10^3/uL (0.0-0.8) 05/12/25 17:54 Baso # (Auto) 0.1 10^3/uL (0.0-0.1) 05/12/25 17:54 Nucleated RBC % (auto) 0 % 05/12/25 17:54 Nucleated RBCs # 0.0 /100WBC 05/12/25 17:54 ESR 53 mm/hr (0-15) H 05/12/25 17:54 Sodium 137 mmol/L (136-145) 05/12/25 17:54 Potassium 3.8 mmol/L (3.5-5.1) 05/12/25 17:54 Chloride 104 mmol/L (98-107) 05/12/25 17:54 Carbon Dioxide 18 mmol/L (22-29) L 05/12/25 17:54 Anion Gap 18.8 (5-19) 05/12/25 17:54 BUN 54 mg/dL (8-23) H 05/12/25 17:54 Creatinine 3.5 mg/dL (0.5-0.9) H 05/12/25 17:54 GFR Calculation 13.0 mL/min (90-130) L 05/12/25 17:54 Glucose 112 mg/dL (65-115) 05/12/25 17:54 Estimat Average Glucose 183 05/12/25 17:54 Hemoglobin A1c 8.0 % (4.0-6.0) H 05/12/25 17:54 Calculated Osmolality 300 mOsm/kg (285-295) H 05/12/25 17:54 Lactic Acid 1.5 mmol/L (0.5-2.2) 05/12/25 17:54 Calcium 9.9 mg/dL (8.5-10.5) 05/12/25 17:54 Phosphorus 2.8 mg/dL (2.5-4.5) 05/12/25 17:54 Magnesium 1.7 mg/dL (1.7-2.3) 05/12/25 17:54 Total Bilirubin 0.3 mg/dL (0.15-1.2) 05/12/25 17:54 AST 5 U/L (0-32) 05/12/25 17:54 ALT < 5 U/L (0-33) 05/12/25 17:54 Alkaline Phosphatase 109 U/L (35-105) H 05/12/25 17:54 C-Reactive Protein 50.5 mg/L (0.0-4.9) H 05/12/25 17:54 Total Protein 8.0 g/dL (6.6-8.7) 05/12/25 17:54 Albumin 3.5 g/dL (3.5-5.2) 05/12/25 17:54 Globulin 4.5 g/dL (1.3-4.6) 05/12/25 17:54 All radiology interpretation(s) finalized by discharge Discharge Plan Discharge Patient Disposition: Admitted As Inpatient Admit Provider: Jim Yadav Clinical Impression: Cellulitis of great toe of right foot, Chronic kidney disease, stage 4 (severe), Diabetic foot ulcer, Osteomyelitis Condition: Stable Coding Level of Care Code 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
[2025-05-12 19:38] LABS: Lactic Sepsis W/Reflex 1.5 mmol/L (0.5-2.2)
[2025-05-12 20:07] LABS: Magnesium 1.7 mg/dL (1.7-2.3)
--- NOTE | 2025-05-12 20:15 | PM.CONSULT ---
Providers/Reason For Consult Consulting Physician/Specialty*: Deni Ridley.P.M./podiatry Reason for Consult*: Right hallux wound Primary Care Provider: Preeti Silva NP History of Present Illness History of Present Illness Chyna Bettencourt is a 69 year old female who presents to the emergency department accompanied by her today with worsening infection of right great toe. Patient states that this started as a blister which developed in mid March. Continued to worsen to the point that she felt that she needed to come in and get evaluated. She was directed to the emergency department by her primary care provider. Patient is not established with podiatry. She states that over the course of the past few days she has had symptoms of general malaise and inability to keep anything down while eating. Workup in the emergency department revealed full-thickness ulceration that probed from plantar to dorsal of the right great toe. Podiatry is consulted to evaluate and provide further treatment recommendations Review of Systems General: Reports: 10 or more systems reviewed and unremarkable except in HPI and below Const: Denies: fever(s), chills, body aches or change in appetite Eyes: Denies: change in vision or blurry vision Card: Denies: chest pain, palpitations or irregular heart rhythm Resp: Denies: dyspnea GI: Denies: abdominal pain, nausea, vomiting or diarrhea Musc: Reports: joint stiffness Skin/Breast: Reports: non-healing lesions and lesions Neuro: Reports: numbness in extremities Medications/Allergies Home Medications ?Medication ?Instructions ?Recorded ?Confirmed ?Last Taken ?Type magnesium oxide 250 mg PO BID 05/23/21 04/01/24 12/23/23 History 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,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,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 08/08/22 04/01/24 Unknown Rx ([employer]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) insulin regular human 100 unit/mL 10 unit SUBCUT DAILY 12/21/23 04/01/24 12/23/23 12:00 History injection solution (Novolin R Regular U-100 Insulin) allopurinol 100 mg tablet 100 mg PO DAILY #90 tabs 02/11/24 04/01/24 Unknown Rx amlodipine 10 mg tablet 10 mg PO DAILY 90 days #90 tabs 02/11/24 04/01/24 Unknown Rx atorvastatin 40 mg tablet 40 mg PO DAILY 90 days #90 tabs 09/09/24 10/29/24 Unknown Rx clopidogrel 75 mg tablet 75 mg PO DAILY 90 days #90 tabs 02/11/24 04/01/24 Unknown Rx famotidine 40 mg tablet 40 mg PO BID 90 days #180 tabs 02/11/24 04/01/24 Unknown Rx furosemide 40 mg tablet 40 mg PO DAILY 90 days #90 tabs 02/11/24 04/01/24 Unknown Rx hydrochlorothiazide 50 mg tablet 50 mg PO DAILY 90 days #90 tabs 02/11/24 04/01/24 Unknown Rx labetalol 100 mg tablet 100 mg PO DAILY 90 days #90 tabs 02/11/24 04/01/24 Unknown Rx loratadine 10 mg tablet 10 mg PO DAILY 90 days #90 tabs 02/11/24 04/01/24 Unknown Rx ondansetron HCl 4 mg tablet 4 mg PO Q6H PRN nausea and 02/11/24 04/01/24 Unknown Rx vomiting #90 tabs pantoprazole 40 mg tablet,delayed 40 mg PO BID 90 days #180 tabs 02/11/24 04/01/24 Unknown Rx release (Protonix) potassium chloride 20 mEq 20 meq PO DAILY 90 days #90 tabs 02/11/24 04/01/24 Unknown Rx tablet,extended release tizanidine 4 mg tablet 4 mg PO .QHS PRN muscle spasticity 02/11/24 04/01/24 Unknown Rx 90 days #90 tabs Allergies Allergy/AdvReac Type Severity Reaction Status Date / Time codeine Allergy ADR-Vomitin Verified 02/19/24 13:07 g Iodinated Contrast Media Allergy ALGY-Bliste Verified 02/19/24 13:07 r PFSH Acute PFSH: Medical History (Updated 05/12/25 @ 20:21 by Jaya Conner DPM) HTN (hypertension) Hip fracture Type II diabetes mellitus, well controlled Diabetes Chronic kidney disease, stage 4 (severe) Tibial plateau fracture, right Closed fracture of tibial plateau Fall Femoral neck fracture Myocardial infarction UTI (urinary tract infection) CAD (coronary artery disease) Surgical History History of knee surgery History of tubal ligation History of cholecystectomy Social History Smoking and tobacco/nicotine status: never used tobacco/nicotine Vitals/I&O/Wt Last Vital Signs Temp 98.6 F 05/12/25 15:52 Pulse 62 05/12/25 15:52 Resp 18 05/12/25 15:52 BP 127/72 05/12/25 15:52 Pulse Ox 97 05/12/25 15:52 O2 Del Method Room Air 05/12/25 15:52 Weight last 48 hrs Weight 166 lb Physical Exam Narrative: BELOW IS A FOCUSED LOWER EXTREMITY EXAM GENERAL: A&O x 3 VASCULAR: DP/PT pulses diminished with cap refill intact to distal digits sluggish. Edema to right hallux. DERMATOLOGICAL: Multiple full-thickness ulcerations to right hallux most notably a large necrotic defect to plantar medial aspect of hallux measuring 2.0 x 1.0 x 2.0 cm. Tracks from plantar to dorsum. Postdebridement measurements 2.2 x 1.2 x 2.0 cm. Mild purulence noted. No soft tissue crepitus. Positive probe to bone with postdebridement visualization of plantar hallux interphalangeal joint and erosive changes of base of distal phalanx with plummer discoloration of bone noted MUSCULOSKELETAL: Periwound tenderness NEUROLOGICAL: Neurological sensation to the affected foot and ankle is diminished IMAGING: Three-view x-rays of right foot obtained in the emergency department were independently turbid by me. These show erosive changes of plantar aspect of distal phalanx with fragmentation and 2 small radiolucencies consistent with subcutaneous emphysema. Data 05/12/25 17:54 05/12/25 17:54 Micro: Microbiology 05/12/25 17:54 Blood Culture - Preliminary Blood SPECIMEN COLLECTED A&P Assessment and plan 1. Osteomyelitis: 2. Type 2 diabetes mellitus with diabetic neuropathy: 3. PAD (peripheral artery disease): 4. Diabetic foot ulcer: Plan: -Right hallux wound with osteomyelitis -Labs and vitals reviewed -WBC 18.49 -ESR 53 -CRP 50.5 -HR 62 -RR 18 -Tmax 98.6 -Cultures aerobic and anaerobic cultures obtained in the emergency department upon debridement -Abx Vanco/Zosyn -Diet: Okay for diet -MRI of right foot will be ordered to evaluate for extent of osteomyelitis. This will direct surgical intervention. Plan for definitive surgical intervention on , 05/14/2025 pending results of MRI. Discussed with patient that she will at least need to undergo right hallux amputation if not partial first ray resection. Excisional debridement down to bone performed in the emergency department. Procedural note noted below -Pain Mgmt: Per primary team -Weight bearing: As tolerated for transfers only to right foot -Dressings: Dry sterile dressing reinforce if needed -Continue current Abx therapy until ID and Sensitivity results -Trend labs -Discharge plan: To be determined -Podiatry will continue to round on patient daily and provide recommendations PROCEDURE: Right foot excisional wound debridement down to level of bone CPT 21616 Location: Plantar right hallux Local Anesthesia: None needed secondary to neuropathy Details: Attention was directed to the plantar aspect of the right hallux where a large necrotic void was noted. Wound measures 2.0 x 1.0 x 2.0 cm. Soft tissue nippers were used to perform excisional debridement to remove devitalized tissue down to the level of bone at the base of the distal phalanx which was discolored and erosive. Cultures aerobic and anaerobic were taken at this point. Postdebridement measurements were 2.2 x 1.2 x 2.0 cm. Site was irrigated with copious amounts of sterile saline. Wound was dressed with dry sterile dressing. Minimal blood loss, less than 2 cc controlled via manual compression Predebridement measurements: 2.0 x 1.0 x 2.0 cm Postdebridement measurements: 2.2 x 1.2 x 2.0 cm Hemostasis: Manual compression Irrigation: Sterile saline Dressing: Dry sterile dressing Estimated Blood Loss: Less than 2 cc Wound culture both aerobic and anaerobic taken and sent to micro for ID and sensitivity PDMP PDMP Reviewed: Not Reviewed Coding Level of Care Code Acute Code for [facility] Fwd Diagnoses Osteomyelitis M86.9 Type 2 diabetes mellitus with diabetic neuropathy E11.40 PAD (peripheral artery disease) I73.9 Diabetic foot ulcer E11.621; L97.509
[2025-05-12 20:23] VITALS: BP 154/66; PULSE 66; O2SAT 95
[2025-05-12 20:28] LABS: Estmated Average Glucose 183; Hemoglobin A1C 8.0 % (4.0-6.0)
--- NOTE | 2025-05-12 20:35 | P.HP_ITS ---
Providers/Chief Complaint 2 Admitting Physician: Jim Yadav MD Primary Care Provider: Preeti Silva NP Chief Complaint: right foot big toe infection History of Present Illness Chyna Bettencourt is a 69 year old female accompanied by her Cristobal. She is in ED room 13. Patient states she had a blister on her foot starting around February and this busted when she stepped wrong in April. Is not healed since then and has been draining inside her shoe. She was seen by Dr. Vargas who was consulted Dr. Conner the screening unit registered nurse and referred patient to me for admission. Patient received vancomycin in the emergency department. Plain films show some cortical disruption but not definite osteomyelitis. Patient is seen in conjunction with Dr. Conner who explored the wound down to bone and has diagnosed osteomyelitis clinically. He has requested MRI with anticipated surgery on . Patient has chronic renal insufficiency. BUN 54 creatinine 3.5. She states she can feel her foot and that it is painful. Past surgical history appendectomy cholecystectomy left middle toe amputation by Dr. Beltrán in 2019 right hip ORIF 09/09/2023 Dr. Fabian Right hip bipolar arthroplasty 01/11/[address] Fabian Review of Systems 2 Narrative: General Positive for chills reports 80 pound weight loss with recent illness. Cardiovascular no chest pain palpitations no history of irregular heartbeat. Recent arterial ultrasound showed posterior tibial with monophasic flow otherwise preserved arterial function Respiratory positive for cough dry mostly but some clear thick phlegm states she snores heavily and does seem to positive breathing GI positive for nausea vomiting this a.m. with yellow emesis no blood no diarrhea constipation no dysuria hematuria Neuro history of strokes at age 52 x 2 but no recent stroke symptoms. She states she can feel pain in her right foot but is trying to tough it out. 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) insulin regular human 100 unit/mL 10 unit SUBCUT DAILY 12/21/23 04/01/24 12/23/23 12:00 History injection solution (Novolin R Regular U-100 Insulin) allopurinol 100 mg tablet 100 mg PO DAILY #90 tabs 02/2504/01/24 Unknown Rx amlodipine 10 mg tablet 10 mg PO DAILY 90 days #90 t abs 02/11/24 04/01/24 Unknown Rx atorvastatin 40 mg tablet 40 mg PO DAILY 90 days #90 t abs 02/11/24 04/01/24 Unknown Rx clopidogrel 75 mg tablet 75 mg PO DAILY 90 days #90 t abs 02/11/24 04/01/24 Unknown Rx famotidine 40 mg tablet 40 mg PO BID 90 days #180 ta bs 02/11/24 04/01/24 Unknown Rx furosemide 40 mg tablet 40 mg PO DAILY 90 days #90 t abs 02/11/24 04/01/24 Unknown Rx hydrochlorothiazide 50 mg tablet 50 mg PO DAILY 90 day s #90 tabs 02/11/24 04/01/24 Unknown Rx labetalol 100 mg tablet 100 mg PO DAILY 90 days #90 tabs 02/11/24 04/01/24 Unknown Rx loratadine 10 mg tablet 10 mg PO DAILY 90 days #90 t abs 02/11/24 04/01/24 Unknown Rx ondansetron HCl 4 mg tablet 4 mg PO Q6H PRN nausea and 02/11/24 04/01/24 Unknown Rx vomiting #90 tabs pantoprazole 40 mg tablet,delayed 40 mg PO BID 90 days #180 tabs 02/11/24 04/01/24 Unknown Rx release (Protonix) potassium chloride 20 mEq 20 meq PO DAILY 90 days #90 tabs 02/11/24 04/01/24 Unknown Rx tablet,extended release tizanidine 4 mg tablet 4 mg PO .QHS PRN muscle spas ticity 02/11/24 04/01/24 Unknown Rx 90 days #90 tabs Allergies Allergy/AdvReac Type Severity Reaction Status Date / Time codeine Allergy ADR-Vomitin Verified 02/19/24 13:07 g Iodinated Contrast Media Allergy ALGY-Bliste Verified 02/19/24 13:07 r PFSH Acute 2 PFSH: Medical History (Updated 05/12/25 @ 20:50 by Jim Yadav MD) Hyperlipidemia Hypertension HTN (hypertension) Hip fracture Type II diabetes mellitus, well controlled Diabetes Chronic kidney disease, stage 4 (severe) Tibial plateau fracture, right Closed fracture of tibial plateau Fall Femoral neck fracture Myocardial infarction UTI (urinary tract infection) CAD (coronary artery disease) Surgical History History of knee surgery History of tubal ligation History of cholecystectomy Social History (Updated 05/12/25 @ 20:47 by Jim Yadav MD) Smoking and tobacco/nicotine status: former use of tobacco/nicotine Quit status (tobacco/nicotine): has quit using Year quit tobacco: 1997 Alcohol intake: never Substance/Drug Use: never Additional social history: She wants DNR status as discussed with Jim Yadav MD and her on 05/12/2025 Previous occupational history: [employer] Vitals/I&O/Wt Last Vital Signs Temp 98.6 F 05/12/25 15:52 Pulse 66 05/12/25 20:23 Resp 18 05/12/25 15:52 BP 154/66 05/12/25 20:23 Pulse Ox 95 05/12/25 20:23 O2 Del Method Room Air 05/12/25 15:52 Weight last 48 hrs Weight 75.296 kg Physical Exam 2 Narrative: General well-developed well-nourished overweight female in no acute cardiopulmonary stress Oropharynx upper and lower dentures Mallampati 1 no exudate CV regular rate and rhythm no loud murmurs Lungs clear to auscultation bilaterally moderate air movement Abdomen positive bowel sounds soft nontender nondistended Calves no tenderness cords pretrip edema Dorsal pedal pulses diminished see images for wound The right helix was probed by Dr. Conner with swabs and probe as well as sterile nail clippers and patient had only mild discomfort without anesthesia cultures were sent Extremity: NARRATIVE EXTREMITY EXAM: Data 05/12/25 17:54 05/12/25 17:54 Micro: Microbiology 05/12/25 17:54 Blood Culture - Preliminary Blood SPECIMEN COLLECTED A&P Assessment and plan 1. Diabetic foot ulcer with osteomyelitis: Patient will need surgery. Due to the the severity of her illness will treat empirically with vancomycin and Zosyn pharmacy to dose due to renal failure. The patient will have MRI of the right foot without contrast. She has some fluctuance in her MTP region 2. Type 2 diabetes mellitus with diabetic neuropathy: She has modest sensation in her foot it is greatly diminished from normal based on minimal pain with exploration at bedside 3. PAD (peripheral artery disease): Continue Plavix 4. Chronic kidney disease, stage 4 (severe): Stable hold diuretics for now. Potassium held magnesium is continued labs to be checked now 5. Hypertension: Continue blood pressure medications 6. Hyperlipidemia: Continue atorvastatin PDMP PDMP Reviewed: Not Reviewed Attestations 2 Medical Necessity Statement*: Patient to the hospital with osteomyelitis of diabetic foot ulcer and we will crier greater than 2 midnights in hospital Coding Level of Care Code 65867 Diagnoses Diabetic foot ulcer with osteomyelitis E11.621; E11.69; L97.509; M86.9 Type 2 diabetes mellitus with diabetic neuropathy E11.40 PAD (peripheral artery disease) I73.9 Chronic kidney disease, stage 4 (severe) N18.4 Hypertension I10 Hyperlipidemia E78.5 Time Spent (min) 80
[2025-05-12] MEDS: heparin 5,000 unit/mL INJ 1 mL 5000 UNIT SUBCUT (21:06)
[2025-05-12] MEDS: insulin glargine 100 units/1 mL 10 UNIT SUBCUT (21:09)
[2025-05-12 21:15] VITALS: BP 143/59; PULSE 66; O2SAT 95
[2025-05-12] MEDS: ondansetron 2 mg/ML SDV 2 mL 4 MG IVP (21:36)
[2025-05-12 21:40] VITALS: BP 123/96; PULSE 69; O2SAT 95
--- NOTE | 2025-05-12 22:03 | PC.NURSE ---
pt. Lispro has not arrived from pharmacy
--- NOTE | 2025-05-12 22:08 | PC.NURSE ---
This RN attempted to call report at [phone] waited on phone nurse never answered.
[2025-05-12 22:44] VITALS: BP 149/64
[2025-05-12 22:46] VITALS: BP 149/64; PULSE 69; O2SAT 95
[2025-05-12 23:39] VITALS: BMI 31.4
[2025-05-12] MEDS: vancomycin 500 MG in sodium chloride 0.9% (plus) 100 ML 200 MG IV (23:54)
[2025-05-12] MEDS: piperacillin-tazobactam 3.375 GM in sodium chloride 0.9% (plus) 50 ML IV (23:54)
[2025-05-13] VITALS: BP 140/70; PULSE 69; RESP 18; TEMP 36.9; O2SAT 96
[2025-05-13 02:00] VITALS: BMI 31.4
[2025-05-13 04:00] VITALS: BP 135/68; PULSE 68; RESP 18; TEMP 36.9; O2SAT 96
[2025-05-13 06:04] LABS: Hematocrit 32.0 % (36-47); Hemoglobin 10.20 g/dL (11.27-16.99); Mean Corpuscular HGB Conc 31.9 g/dL (30-55); Mean Corpuscular Hemoglobin 28.3 pg (27-33); Mean Corpuscular Volume 88.6 fl (85-98); Nucleated Red Blood Cells % 0 %; Platelet Count 484 10^3/cmm (157-399); Red Blood Count 3.61 10^6/uL (3.85-5.65); White Blood Count 14.70 10^3/uL (3.29-11.43)
[2025-05-13 06:23] LABS: Anion Gap 17.7 (5-19); Blood Urea Nitrogen 48 mg/dL (8-23); Calcium 9.3 mg/dL (8.5-10.5); Carbon Dioxide 17 mmol/L (22-29); Chloride 105 mmol/L (98-107); Creatinine Clr Calc Pharmacy 16.6597; Glucose 131 mg/dL (65-115); Osmolality Calculated 296 mOsm/kg (285-295); Potassium 3.7 mmol/L (3.5-5.1); Sodium 136 mmol/L (136-145)
[2025-05-13 07:35] VITALS: BP 126/62; PULSE 65; RESP 18; TEMP 36.4; O2SAT 92
[2025-05-13] MEDS: heparin 5,000 unit/mL INJ 1 mL 5000 UNIT SUBCUT ×2 (07:43→20:46)
--- NOTE | 2025-05-13 08:00 | MRR_ITS ---
PROCEDURE INFORMATION: Exam: MR Right Lower Extremity Other Than Joint Without Contrast; Foot Exam date and time: 05/13/2025 2:07 PM Age: 69 years old Clinical indication: Condition or disease; Other: Diabetic ulcer; Additional info: Halux and mtp infection osteomyelitis and abscess, diabetic ulcer x 3 months TECHNIQUE: Imaging protocol: Magnetic resonance imaging of the right lower extremity without contrast. Exam focused on the foot. COMPARISON: CT hip RT wo con* [id number] 09/08/2023 6:30 PM FINDINGS: Bones/joints: There is abnormal low T1 signal throughout the distal phalanx of the great toe and to a lesser degree within the proximal phalanx of the great toe, consistent with osteomyelitis of both bones. LIGAMENTS: Lisfranc ligament: Lisfranc ligament is unremarkable. No evidence of tear. TENDONS: Flexor tendons of foot: Tendinopathy and tenosynovitis of the flexor digitorum longus tendon at the level of the 1st metatarsal mid diaphysis, series 1101, image 7. This is adjacent to the previously described plantar fluid collection and infectious tenosynovitis cannot be excluded. Extensor tendons of foot: The extensor tendons are unremarkable. Soft tissues: Soft tissue ulcer at the medial distal aspect of the great toe, series 801, image 17, extending to the medial inferior aspect of the base of the distal phalanx of the great toe. There is a fluid collection within the subcutaneous soft tissue of the plantar aspect of the foot underlying the 1st metatarsal bone and medial cuneiform, extending 7.1 cm in length, 3.9 cm in transverse dimension and 0.9 cm in craniocaudal dimension, series 1101, image 8 and series 601, image 16. Infected fluid is not excluded. There is edema of the soft tissues of the distal foot, greatest at the site of ulceration and extending proximally. There is diffuse atrophy of the foot musculature. Plantar fascia: Unremarkable as visualized. MR/MR foot RT wo con* [id number] IMPRESSION: 1. Soft tissue ulcer at the medial distal aspect of the great toe, series 801, image 17, extending to the medial inferior aspect of the base of the distal phalanx of the great toe. 2. Findings of osteomyelitis of the proximal and distal phalanx bones of the great toe. 3. Fluid collection within the subcutaneous soft tissue of the plantar aspect of the foot underlying the 1st metatarsal bone and medial cuneiform, extending 7.1 cm in length, 3.9 cm in transverse dimension and 0.9 cm in craniocaudal dimension, series 1101 image 8 and series 601, image 16. Infected fluid is not excluded. 4. Tendinopathy and tenosynovitis of the flexor digitorum longus tendon at the level of the 1st metatarsal mid diaphysis, series 1101, image 7. This is adjacent to the previously described plantar fluid collection and infectious tenosynovitis cannot be excluded.
--- NOTE | 2025-05-13 09:23 | PC.CHAP ---
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 project coordinator visit [] Patient/Family/Request visit [] Outpatient visit [] Follow-up visit [] Physician referral [] Code/Alert [x] Routine visit [] Staff referral [] Actively dying [] Patient sleeping [] Family support [] [] Out of room [] Palliative care [] [] Receiving care in room [] Pre-surgical visit [] Trauma [] Long length of stay [] ICU visit [] Other: Relational/Emotional Strength [x] Patient feels connected with others/family/visitors/staff [] Distress [] Loneliness/isolation [] Abandonment Spirituality of Patient [x] Person of Naida [] Attends Hindu of their Naida [x] Believes in Prayer [] Reads Bible or Congregational materials [] There are Spiritual issues to be addressed [employer]per Interventions [x] Prayer [x] Active listening [] Non-anxious presence [x] Spiritual/emotional support [] Crisis/trauma care [] Spiritual counseling [] Bereavement support [] Provided bereavement packet [] Provided Bible/devotional materials [] Provided toy/stuffed animal, coloring book to patient or family member [] Provided Communion [] Anointing/Lydia [] Salvation [x] Completed spiritual assessment [] Other: Impact on Illness or Injury [] Angry [] Fearful [] Anxious [] Often cries [] Exhaustion [] Unable to work [] Unable to attend protestant [] Unable to walk/stand [] Unable to read [] Unable to drive [] Unable to eat/drink [] Unable to sleep [] Unable to be with family [] Patient intubated [] Other: Summary Time spent with patient 5 min
[2025-05-13 10:31] LABS: Procalcitonin 0.23 ng/mL (0-0.5); Thyroid Stimulating Hormone 1.43 uIU/mL (0.27-4.20); Vitamin B12 1371 pg/mL (232-1245)
[2025-05-13 10:42] LABS: Iron 31 ug/dL (37-145); Total Iron Binding Capacity 179 mcg/dl; Unsaturated Iron Binding 148 ug/dL (112-347)
[2025-05-13 11:31] VITALS: BP 126/63; PULSE 69; RESP 18; TEMP 36.4; O2SAT 93
--- NOTE | 2025-05-13 11:36 | P.PN_ITS ---
Subjective 2 Subjective: Admitted overnight for H&P labs appreciated. Examination patient comfortably in bed. States she is feeling a lot better than when she came to the hospital. Denies any nausea, vomiting, headache. Has remained hemodynamically stable and afebrile. Vitals/I&O/Wt Last Vital Signs Temp 97.5 F L 05/13/25 11:31 Pulse 69 05/13/25 11:31 Resp 18 05/13/25 11:31 BP 126/63 05/13/25 11:31 Pulse Ox 93 05/13/25 11:31 O2 Del Method Room Air 05/13/25 11:31 05/12/25 05/13/25 05/13/25 22:59 06:59 14:59 Intake Total 400 / 400 360 / 360 Balance 400 / 400 360 / 360 Weight last 48 hrs Weight 73.284 kg Weight 75.296 kg Weight 75.296 kg Weight 75.296 kg Physical Exam 2 Narrative: General well-developed well-nourished overweight female in no acute cardiopulmonary stress, AO x 3 CV regular rate and rhythm no loud murmurs Lungs clear to auscultation bilaterally moderate air movement Abdomen positive bowel sounds soft nontender nondistended Calves no tenderness cords pretrip edema Dorsal pedal pulses diminished see images for wound Extremity: NARRATIVE EXTREMITY EXAM: Wound on admission. Data 05/13/25 05:17 05/13/25 05:17 Micro: Microbiology 05/12/25 20:37 Blood Culture - Preliminary Blood SPECIMEN COLLECTED 05/12/25 17:54 Blood Culture - Preliminary Blood SPECIMEN COLLECTED A&P Assessment and plan 1. Diabetic foot ulcer with osteomyelitis: Patient will need surgery. Due to the the severity of her illness will treat empirically with vancomycin and Zosyn pharmacy to dose due to renal failure. The patient will have MRI of the right foot without contrast. She has some fluctuance in her MTP region 2. Type 2 diabetes mellitus with diabetic neuropathy: She has modest sensation in her foot it is greatly diminished from normal based on minimal pain with exploration at bedside 3. PAD (peripheral artery disease): Continue Plavix 4. Chronic kidney disease, stage 4 (severe): Stable hold diuretics for now. Potassium held magnesium is continued labs to be checked now 5. Hypertension: Continue blood pressure medications 6. Hyperlipidemia: Continue atorvastatin Plan: Plan for today: Appreciate podiatry recommendations. Plan for MRI today. Depending on the MRI possible OR in afternoon tomorrow for amputation. Follow-up cultures. Follow-up blood culture. Check MRSA swab. For now continue with IV Zosyn and vancomycin. Vancomycin as per Rodriguez trough levels. If MRSA swab negative can discontinue vancomycin. Depending on MRI and intraoperative findings patient might need at least 4 weeks of IV antibiotics. If needed will consult ID. Patient does have history of CKD. Baseline creatinine 2.1-3.1. Currently 3. Creatinine at baseline. Medical reconciliation done for nephrotoxic drugs. Monitor BMP daily. Monitor electrolytes. Goal blood pressure less than 140/90 mmHg. Uptitrate antihypertensive accordingly. Continue with home antihypertensive for now including amlodipine, labetalol. Appreciate A1c. Insulin sliding scale. Continue with home dose of Lantus. DNR/DNI Carb consistent cardiac diet for now. N.p.o. after midnight. Famotidine for PUD prophylaxis PDMP PDMP Reviewed: Not Reviewed Attestations 2 Medical Necessity Statement*: Requires further hospitalization for management of diabetic foot ulcer with osteomyelitis requiring OR, CKD, PAD Diagnoses Diabetic foot ulcer with osteomyelitis E11.621; E11.69; L97.509; M86.9 Type 2 diabetes mellitus with diabetic neuropathy E11.40 PAD (peripheral artery disease) I73.9 Chronic kidney disease, stage 4 (severe) N18.4 Hypertension I10 Hyperlipidemia E78.5
[2025-05-13] MEDS: piperacillin-tazobactam 3.375 GM in sodium chloride 0.9% (plus) 50 ML IV ×2 (11:45→22:43)
--- NOTE | 2025-05-13 13:01 | P.PN_ITS ---
Subjective 2 Subjective: Patient seen at bedside's morning. Resting comfortably. Awaiting MRI Vitals/I&O/Wt Last Vital Signs Temp 97.5 F L 05/13/25 11:31 Pulse 69 05/13/25 11:31 Resp 18 05/13/25 11:31 BP 126/63 05/13/25 11:31 Pulse Ox 93 05/13/25 11:31 O2 Del Method Room Air 05/13/25 11:31 05/12/25 05/13/25 05/13/25 22:59 06:59 14:59 Intake Total 400 / 400 540 / 540 Balance 400 / 400 540 / 540 Weight last 48 hrs Weight 161 lb 9 oz Weight 166 lb Weight 166 lb Weight 166 lb Physical Exam 2 Narrative: BELOW IS A FOCUSED LOWER EXTREMITY EXAM GENERAL: A&O x 3 VASCULAR: DP/PT pulses diminished with cap refill intact to distal digits sluggish. Edema to right hallux. DERMATOLOGICAL: Multiple full-thickness ulcerations to right hallux most notably a large necrotic defect to plantar medial aspect of hallux measuring 2.0 x 1.0 x 2.0 cm. Tracks from plantar to dorsum. Postdebridement measurements 2.2 x 1.2 x 2.0 cm. Mild purulence noted. No soft tissue crepitus. Positive probe to bone with postdebridement visualization of plantar hallux interphalangeal joint and erosive changes of base of distal phalanx with plummer discoloration of bone noted MUSCULOSKELETAL: Periwound tenderness NEUROLOGICAL: Neurological sensation to the affected foot and ankle is diminished IMAGING: Three-view x-rays of right foot obtained in the emergency department were independently turbid by me. These show erosive changes of plantar aspect of distal phalanx with fragmentation and 2 small radiolucencies consistent with subcutaneous emphysema. Data 05/13/25 05:17 05/13/25 05:17 Micro: Microbiology 05/12/25 20:37 Blood Culture - Preliminary Blood SPECIMEN COLLECTED 05/12/25 17:54 Blood Culture - Preliminary Blood SPECIMEN COLLECTED A&P Assessment and plan 1. Osteomyelitis: 2. Type 2 diabetes mellitus with diabetic neuropathy: 3. PAD (peripheral artery disease): 4. Diabetic foot ulcer: Plan: -Right hallux wound with osteomyelitis -Labs and vitals reviewed -WBC 18.49 -ESR 53 -CRP 50.5 -HR 62 -RR 18 -Tmax 98.6 -Cultures aerobic and anaerobic cultures obtained in the emergency department upon debridement -Abx Vanco/Zosyn -Diet: N.p.o. at midnight -MRI of right foot will be ordered to evaluate for extent of osteomyelitis. This will direct surgical intervention. Plan for definitive surgical intervention on , 05/14/2025 pending results of MRI. Discussed with patient that she will at least need to undergo right hallux amputation if not partial first ray resection. -Pain Mgmt: Per primary team -Weight bearing: As tolerated for transfers only to right foot -Dressings: Dry sterile dressing reinforce if needed -Continue current Abx therapy until ID and Sensitivity results -Trend labs -Discharge plan: To be determined -Podiatry will continue to round on patient daily and provide recommendations PDMP PDMP Reviewed: Not Reviewed Attestations 2 Medical Necessity Statement*: Plan for OR tomorrow 05/14/2025 Coding Level of Care Code Acute Code for [facility] Diagnoses Osteomyelitis M86.9 Type 2 diabetes mellitus with diabetic neuropathy E11.40 PAD (peripheral artery disease) I73.9 Diabetic foot ulcer E11.621; L97.509
[2025-05-13 13:18] LABS: Glucose Urine UA Negative (Normal); Nitrate Urine Negative (Negative); Specific Gravity, Urine 1.019 (1.005-1.030)
[2025-05-13 13:23] LABS: Add Urine Microscopic? YES
--- NOTE | 2025-05-13 13:44 | PHA.VACGOAL ---
Vancomycin Goal - Goal Vancomycin Goal:: 15-20 mg/L Vancomycin Indication:: Osteo - Therapy Day of therpy:: Day []of [] . Actual body weight (kg): 73.284 kg - Data Labs: WBC 14.70 10^3/uL (3.29-11.43) H 05/13/25 05:17 RBC 3.61 10^6/uL (3.85-5.65) L 05/13/25 05:17 Hgb 10.20 g/dL (11.27-16.99) L 05/13/25 05:17 Hct 32.0 % (36-47) L 05/13/25 05:17 MCV 88.6 fl (85-98) 05/13/25 05:17 MCH 28.3 pg (27-33) 05/13/25 05:17 MCHC 31.9 g/dL (30-55) 05/13/25 05:17 RDW 14.2 % (12.1-15.1) 05/13/25 05:17 Sodium 136 mmol/L (136-145) 05/13/25 05:17 Potassium 3.7 mmol/L (3.5-5.1) 05/13/25 05:17 Chloride 105 mmol/L (98-107) 05/13/25 05:17 Carbon Dioxide 17 mmol/L (22-29) L 05/13/25 05:17 Anion Gap 17.7 (5-19) 05/13/25 05:17 BUN 48 mg/dL (8-23) H 05/13/25 05:17 Creatinine 3.0 mg/dL (0.5-0.9) H 05/13/25 05:17 GFR Calculation 15.6 mL/min (90-130) L 05/13/25 05:17 Treatment plan:: new consult Regimen:: PULSE DOSE TROUGH 05/13
[2025-05-13 15:53] VITALS: BP 153/69; PULSE 67; RESP 17; TEMP 36.6; O2SAT 96
[2025-05-13 20:00] VITALS: BP 146/78; PULSE 70; RESP 18; TEMP 36.3; O2SAT 96
[2025-05-13] MEDS: insulin glargine 100 units/1 mL 10 UNIT SUBCUT (20:45)
[2025-05-14] VITALS (17 sets, daily range): BP systolic 114–146; BP diastolic 60–99; PULSE 61–77; RESP 15–20; TEMP 36.4–37.1; O2SAT 92–96
[2025-05-14 07:06] LABS: Hematocrit 30.7 % (36-47); Hemoglobin 10.00 g/dL (11.27-16.99); Mean Corpuscular HGB Conc 32.6 g/dL (30-55); Mean Corpuscular Hemoglobin 29.2 pg (27-33); Mean Corpuscular Volume 89.5 fl (85-98); Nucleated Red Blood Cells % 0 %; Platelet Count 500 10^3/cmm (157-399); Red Blood Count 3.43 10^6/uL (3.85-5.65); White Blood Count 13.63 10^3/uL (3.29-11.43)
[2025-05-14 07:30] LABS: Alanine Aminotransferase < 5 U/L (0-33); Albumin Level 3.0 g/dL (3.5-5.2); Alkaline Phosphatase 134 U/L (35-105); Anion Gap 17.7 (5-19); Aspartate Amino Transferase 7 U/L (0-32); Blood Urea Nitrogen 46 mg/dL (8-23); Calcium 9.0 mg/dL (8.5-10.5); Carbon Dioxide 17 mmol/L (22-29); Chloride 108 mmol/L (98-107); Globulin 3.7 g/dL (1.3-4.6); Glucose 151 mg/dL (65-115); Osmolality Calculated 303 mOsm/kg (285-295); Potassium 3.7 mmol/L (3.5-5.1); Sodium 139 mmol/L (136-145); Total Protein 6.7 g/dL (6.6-8.7)
[2025-05-14] MEDS: heparin 5,000 unit/mL INJ 1 mL 5000 UNIT SUBCUT ×2 (07:46→21:30)
[2025-05-14 08:42] LABS: Magnesium 1.5 mg/dL (1.7-2.3)
[2025-05-14] MEDS: magnesium sulfate premix 1 GM/100 ML PIGGYBACK IV (09:08)
--- NOTE | 2025-05-14 09:30 | ANES.PREANE2 ---
Pre-Anesthetic Assessment Height/Weight: Height 5 ft 1 in Weight 167 lb Temp Pulse Resp BP Pulse Ox O2 Del Method 97.7 F 66 16 131/68 93 Room Air 05/14/25 07:24 05/14/25 07:24 05/14/25 07:24 05/14/25 07:24 05/14/25 07:24 05/14/25 07:24 Preop Diagnosis: Foot osteomyelitis Operation Date: 05/14/25 12:00 Proposed Procedures p Right partial first Ray Resection(Right) - Jaya Conner DPM Was Beta Joanne taken within 24 hours: N/A Was Clonidine taken within 24 hours: N/A Last intake: Intake Last Liquid Date 05/13/25 Last Liquid Time 00:08 Last Solid Date 05/13/25 Last Solid Time 00:08 Social No alcohol and No tobacco Exam alert, oriented x 3, clear to auscultation bilaterally and regular rate & rhythm Airway Submandibular: within normal limits Cervical ROM: within normal limits Mallampati: Class II Comments: Comments: Edentulous Anesthetic Plan ASA status: 3 Anesthesia: MAC Other: No prior issues with anesthesia NPO since yesterday evening Patient states that her IV hurts a little. Flushes fine. Offered to replace IV but patient chose to not replace it Patient initially admitted 05/12/2025 for osteomyelitis History of hypertension on amlodipine labetalol and spironolactone?HCTZ CKD stage IV, no dialysis IDDM, preop BS 151 Plan for MAC anesthesia with local view surgeon Medications/Allergies Home Medications ?Medication ?Instructions ?Recorded ?Confirmed ?Last Taken ?Type 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,apricot washer,cont #1 ea 08/08/22 05/13/25 Unknown Rx (Dexcom G7 Media Relations Director) insulin regular human 100 unit/mL 10 unit SUBCUT DAILY 12/21/23 05/13/25 05/12/25 History injection solution (Novolin R Regular U-100 Insulin) allopurinol 100 mg tablet 100 mg PO DAILY #90 tabs 02/11/24 05/13/25 05/12/25 Rx amlodipine 10 mg tablet 10 mg PO DAILY 90 days #90 tabs 02/11/24 05/13/25 05/12/25 Rx atorvastatin 40 mg tablet 40 mg PO DAILY 90 days #90 tabs 02/11/24 05/13/25 05/12/25 Rx clopidogrel 75 mg tablet 75 mg PO DAILY 90 days #90 tabs 02/11/24 05/13/25 05/12/25 Rx famotidine 40 mg tablet 40 mg PO BID 90 days #180 tabs 02/11/24 05/13/25 05/12/25 Rx furosemide 40 mg tablet 40 mg PO DAILY 90 days #90 tabs 02/11/24 05/13/25 Unknown Rx labetalol 100 mg tablet 100 mg PO DAILY 90 days #90 tabs 02/11/24 05/13/25 05/12/25 Rx loratadine 10 mg tablet 10 mg PO DAILY 90 days #90 tabs 02/11/24 05/13/25 05/12/25 Rx ondansetron HCl 4 mg tablet 4 mg PO Q6H PRN nausea and 02/11/24 05/13/25 Unknown Rx vomiting #90 tabs pantoprazole 40 mg tablet,delayed 40 mg PO BID 90 days #180 tabs 02/11/24 05/13/25 05/12/25 Rx release (Protonix) tizanidine 4 mg tablet 4 mg PO .QHS PRN muscle spasticity 02/11/24 05/13/25 Unknown Rx 90 days #90 tabs amoxicillin 875 mg-potassium 1 tab PO BID 05/13/25 05/13/25 05/12/25 History clavulanate 125 mg tablet hydrocodone 5 mg-acetaminophen 325 1 tab PO Q8H PRN Pain 05/13/25 05/13/25 Unknown History mg tablet insulin NPH isoph U-100 human 100 10 unit SUBCUT .@NOON 05/13/25 05/13/25 05/12/25 History unit/mL subcutaneous suspension (Humulin N NPH U-100 Insulin (isophane susp)) spironolactone 25 1 tab PO DAILY 05/13/25 05/13/25 05/12/25 History mg-hydrochlorothiazide 25 mg tablet Allergies Allergy/AdvReac Type Severity Reaction Status Date / Time codeine Allergy ADR-Vomitin Verified 02/19/24 13:07 g Iodinated Contrast Media Allergy ALGY-Bliste Verified 02/19/24 13:07 r Current Medications Generic Name Dose Route Start Last Admin Trade Name Freq PRN Reason Stop Dose Admin Allopurinol 100 mg 05/13/25 05:00 05/14/25 05:15 Allopurinol 100 Mg Tablet PO 100 mg DAILY CRYSTAL Administration Amlodipine Besylate 10 mg 05/13/25 05:00 05/14/25 05:15 Amlodipine 10 Mg Tablet PO 10 mg DAILY CRYSTAL Administration Atorvastatin Calcium 40 mg 05/13/25 05:00 05/14/25 05:14 Atorvastatin 40 Mg Tablet PO 40 mg DAILY CRYSTAL Administration Clopidogrel Bisulfate 75 mg 05/13/25 05:00 05/14/25 05:15 Clopidogrel 75 Mg Tablet PO 75 mg DAILY CRYSTAL Administration Famotidine 40 mg 05/13/25 05:00 05/14/25 05:14 Famotidine 20 Mg Tablet PO 40 mg DAILY CRYSTAL Administration Heparin Sodium (Porcine) 5,000 unit 05/12/25 20:15 05/14/25 07:46 Heparin 5,000 Unit/Ml Inj 1 Ml SUBCUT 5,000 unit Q12H CRYSTAL Administration Piperacillin Sod/Tazobactam 50 mls @ 12.5 mls/hr 05/12/25 23:00 05/14/25 02:32 Sod 3.375 gm/ Sodium Chloride IV Infused Q12H CRYSTAL Infusion Insulin Glargine 10 unit 05/12/25 21:00 05/13/25 20:45 Insulin Glargine 100 Units/1 Ml SUBCUT 10 unit BEDTIME CRYSTAL Administration Insulin Human Lispro 0 unit 05/12/25 21:00 05/14/25 07:48 Insulin Lispro 100 Unit/1 Ml SUBCUT Not Given WM&BEDTIME COUNTS INCLUDE 234 BEDS AT THE [facility] Protocol Labetalol HCl 100 mg 05/13/25 05:00 05/14/25 05:15 Labetalol 200 Mg Tablet PO 100 mg DAILY CRYSTAL Administration Loratadine 10 mg 05/13/25 05:00 05/14/25 05:15 Loratadine 10 Mg Tablet PO 10 mg DAILY CRYSTAL Administration Magnesium Oxide 400 mg 05/13/25 05:00 05/14/25 05:15 Magnesium Oxide 400 Mg Tablet PO 400 mg BID CRYSTAL Administration PFSH Anesthesia Medical History (Updated 05/12/25 @ 20:50 by Jim Yadav MD) Hyperlipidemia Hypertension HTN (hypertension) Hip fracture Type II diabetes mellitus, well controlled Diabetes Chronic kidney disease, stage 4 (severe) Tibial plateau fracture, right Closed fracture of tibial plateau Fall Femoral neck fracture Myocardial infarction UTI (urinary tract infection) CAD (coronary artery disease) Surgical History History of knee surgery History of tubal ligation History of cholecystectomy Social History (Updated 05/12/25 @ 20:47 by Jim Yadav MD) Smoking and tobacco/nicotine status: former use of tobacco/nicotine Quit status (tobacco/nicotine): has quit using Year quit tobacco: 1997 Alcohol intake: never Substance/Drug Use: never Additional social history: She wants DNR status as discussed with Jim Yadav MD and her on 05/12/2025 Previous occupational history: [employer] Data Anesthesia 05/14/25 06:39 05/14/25 06:39 Short CBC 05/12/25 05/13/25 05/14/25 Range/Units 17:54 05:17 06:39 WBC 18.49 H 14.70 H 13.63 H (3.29-11.43) 10^3/uL Hgb 11.00 L 10.20 L 10.00 L (11.27-16.99) g/dL Hct 34.2 L 32.0 L 30.7 L (36-47) % MCV 89.5 88.6 89.5 (85-98) fl Plt Count 540 H 484 H 500 H (157-399) 10^3/cmm Neut % (Auto) 83.2 85.7 76.2 % Neut # (Auto) 15.40 H 12.60 H 10.39 H (1.8-7.7) 10^3/uL BMP 05/12/25 05/13/25 05/14/25 17:54 05:17 06:39 Sodium 137 136 139 Potassium 3.8 3.7 3.7 Chloride 104 105 108 H Carbon Dioxide 18 L 17 L 17 L BUN 54 H 48 H 46 H Creatinine 3.5 H 3.0 H 3.0 H Glucose 112 131 H 151 H Calcium 9.9 9.3 9.0 Liver Function 05/12/25 05/14/25 Range/Units 17:54 06:39 Total Bilirubin 0.3 0.2 (0.15-1.2) mg/dL AST 5 7 (0-32) U/L ALT < 5 < 5 (0-33) U/L Alkaline Phosphatase 109 H 134 H (35-105) U/L Albumin 3.5 3.0 L (3.5-5.2) g/dL Urine 05/13/25 Range/Units 13:05 Urine Color Yellow (Yellow) Urine Appearance Clear (CLEAR) Urine pH 5.0 (5-7) Ur Specific [place] 1.019 (1.005-1.030) Urine Protein 1+ A (Negative) Urine Glucose (UA) Negative (Normal) Urine Ketones Negative (Negative) Urine Nitrate Negative (Negative) Urine Bilirubin Negative (Negative) Ur Leukocyte Esterase 1+ A (Negative) Urine RBC 0-2 (0-2) /hpf Urine WBC 0-5 (0-5) /hpf Coags 05/12/25 17:54 ESR 53 H C-Reactive Protein 50.5 H Microbiology 05/12/25 20:11 Anaerobic Culture - Preliminary Toe - #1 05/12/25 20:37 Blood Culture - Preliminary Blood NEGATIVE TO DATE 05/12/25 17:54 Blood Culture - Preliminary Blood NEGATIVE TO DATE 05/13/25 13:05 Bacterial Antigens - Final Urine Kidney 05/12/25 20:11 Gram Stain - Final Toe - Toe
[2025-05-14] MEDS: piperacillin-tazobactam 3.375 GM in sodium chloride 0.9% (plus) 50 ML IV ×2 (10:17→22:56)
--- NOTE | 2025-05-14 11:42 | P.PN_ITS ---
Subjective 2 Subjective: No acute events overnight. Patient has remained hemodynamically stable and afebrile. Laying comfortably in bed. Denies any nausea, vomiting, headache. Pain well-controlled. Plan for OR debridement later in the day. Vitals/I&O/Wt Last Vital Signs Temp 98.6 F 05/14/25 11:20 Pulse 65 05/14/25 11:20 Resp 17 05/14/25 11:20 BP 128/64 05/14/25 11:20 Pulse Ox 95 05/14/25 11:20 O2 Del Method Room Air 05/14/25 11:20 05/13/25 05/14/25 05/14/25 22:59 06:59 14:59 Intake Total 530 / 1070 50 / 1120 100 / 100 Output Total 200 / 300 Balance 330 / 770 50 / 820 100 / 100 Weight last 48 hrs Weight 75.75 kg Weight 75.75 kg Weight 73.284 kg Weight 75.296 kg Weight 75.296 kg Weight 75.296 kg Physical Exam 2 Narrative: AO x 3 S1-S2 regular, no no murmurs, no rub Normal vesicular breath sounds all over lung rocha, occasional rhonchi, decreased air entry bilaterally in lower zone Abdomen soft nontender. Wound on admission. Data 05/14/25 06:39 05/14/25 06:39 Micro: Microbiology 05/12/25 20:11 Anaerobic Culture - Preliminary Toe - #1 05/12/25 20:37 Blood Culture - Preliminary Blood NEGATIVE TO DATE 05/12/25 17:54 Blood Culture - Preliminary Blood NEGATIVE TO DATE 05/13/25 13:05 Bacterial Antigens - Final Urine Kidney 05/12/25 20:11 Gram Stain - Final Toe - Toe A&P Assessment and plan 1. Osteomyelitis: 2. Type 2 diabetes mellitus with diabetic neuropathy: She has modest sensation in her foot it is greatly diminished from normal based on minimal pain with exploration at bedside 3. PAD (peripheral artery disease): Continue Plavix 4. Diabetic foot ulcer: 5. Diabetic foot ulcer with osteomyelitis: Patient will need surgery. Due to the the severity of her illness will treat empirically with vancomycin and Zosyn pharmacy to dose due to renal failure. The patient will have MRI of the right foot without contrast. She has some fluctuance in her MTP region 6. Chronic kidney disease, stage 4 (severe): Stable hold diuretics for now. Potassium held magnesium is continued labs to be checked now 7. Hypertension: Continue blood pressure medications 8. Hyperlipidemia: Continue atorvastatin Plan: Plan for today: Plan 4 OR today for debridement. Possible delayed closure early next week. Appreciate MRI results with concern for osteomyelitis and possible deep abscess. Follow-up cultures. MRSA swab pending. Continue with empiric IV vancomycin and Zosyn. Appreciate Rodriguez trough levels. Depending on the MRI findings patient most likely will need IV antibiotics on discharge. Will consult ID accordingly postoperatively. Creatinine at baseline. Continue to monitor urine output and BMP daily. Monitor potassium level. Blood pressure is at goal. Appreciate A1c. Insulin sliding scale. Continue with home dose of Lantus. DNR/DNI N.p.o. for now. Carb consistent diet postoperatively Famotidine for PUD prophylaxis Discharge planning: Patient would most likely need IV antibiotics on discharge. Possible discharge to SNF for IV antibiotics versus home with home health. PDMP PDMP Reviewed: Not Reviewed Attestations 2 Medical Necessity Statement*: Requires further hospitalization for management of osteomyelitis with abscess requiring OR debridement, IV antibiotics as an outpatient while safe discharge planning is sought Diagnoses Osteomyelitis M86.9 Type 2 diabetes mellitus with diabetic neuropathy E11.40 PAD (peripheral artery disease) I73.9 Diabetic foot ulcer E11.621; L97.509 Diabetic foot ulcer with osteomyelitis E11.621; E11.69; L97.509; M86.9 Chronic kidney disease, stage 4 (severe) N18.4 Hypertension I10 Hyperlipidemia E78.5
--- NOTE | 2025-05-14 11:52 | W.PM.OPSUD ---
Surgery/Procedure H&P Update DATE OF PROCEDURE: May 14, 2025 DATE H&P PERFORMED: 05/12/25 H&P UPDATE INFORMATION: I have reviewed H&P completed within last 30 days, I have examined patient prior to procedure, No changes to prior documentation, H&P is in [facility] EMR on date indicated and Risks and benefits of the procedure reviewed PREOP DIAGNOSIS: Foot osteomyelitis PLANNED PROCEDURE: Operation Date: 05/14/25 12:00 Proposed Procedures p Right partial first Ray Resection(Right) - Jaya Conner DPM
[2025-05-14] MEDS: BUPivacaine 0.5% INJ 30 mL INJECTION (12:10)
--- NOTE | 2025-05-14 12:42 | P.BOP_ITS ---
Date of procedure: 05/14/25 Surgeon name: Dr. Jaya Conner DPM Automotive Sales Associate(s) name(s): See intraop documentation Procedure(s) performed: Right hallux amputation, incision bone cortex right first metatarsal Description of findings: Abscess Estimated blood loss: 20cc Tourniquet time: 18 minutes Specimen(s) removed: right hallux, cultures aerobic and anaerobic Post-operative diagnosis: osteomyelitis
--- NOTE | 2025-05-14 12:58 | ECG_ITS ---
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 Measurements Intervals [place] Rate: 63 P: 35 CT: 170 QRS: -1 QRSD: 85 T: 59 QT: 417 QTc: 429 Interpretive Statements SINUS RHYTHM NONSPECIFIC T-WAVE ABNORMALITY Compared to ECG 09/10/2023 01:57:37 T-wave abnormality now present Myocardial infarct finding no longer present Electronically Signed On 05-14-2025 17:17:10 ELECTRIC MOTOR REPAIRMAN by Kb Fernandez M.D. [email or web address]
--- NOTE | 2025-05-14 13:09 | ANE.PACU2 ---
Inpatient post-anesthesia follow up: Airway intact: Yes Vital signs: Temperature 98.8 F Pulse Rate 63 Respiratory Rate 15 Blood Pressure 135/70 Pulse Oximetry 95 Oxygen Delivery Me thod Room Air Oxygen Flow Rate 10 Fraction of Inspir ed Oxygen Hydration adequate: Yes Nausea and vomiting: No Pain level: 2 Mental status: Baseline
[2025-05-14] MEDS: vancomycin 500 MG in sodium chloride 0.9% (plus) 100 ML 200 MG IV (15:04)
[2025-05-14] MEDS: oxyCODONE 5 mg IR Tab/Cap PO ×2 (15:15→21:33)
--- NOTE | 2025-05-14 15:38 | PC.SOCIAL ---
*IMM* CM delivered IMM from Medicare to patient. Patient received a copy. Copy placed in chart, initialed and dated 05/13/25.
--- NOTE | 2025-05-14 19:04 | P.OP_ITS ---
Operative Report Date of procedure: May 14, 2025 Surgeon: Jaya Conner DPM Procedure: Date of procedure: 05/14/2025 Pre-op diagnosis: Right foot abscess, right hallux osteomyelitis Post-op diagnosis: Osteomyelitis right hallux, abscess right foot Post-op findings: Abscess tracking along flexor hallucis longus tendon to the knot of Esvin. Necrotic tissue medial plantar arch Procedure done: 1. Right hallux amputation CPT 99822 2. Right foot incision and drainage CPT 88218 Implants: None Specimens removed: Right hallux sent to pathology of surgical specimen. Cultures aerobic and anaerobic sent to micro for ID and sensitivity Surgeon: Dr. Jaya Conner DPM Dialysis Technician: See intraoperative documentation Estimated blood loss: 20 cc Tourniquet time: 18 minutes Complications: None The patient presents with a severe foot infection involving right hallux and right medial longitudinal arch characterized by erythema, swelling, and drainage. The infection is complicated by underlying conditions, including diabetes, peripheral neuropathy, which have contributed to the progression of the infection despite conservative management. Preoperative imaging and laboratory results indicate osteomyelitis, abscess formation, necessitating surgical intervention. The planned procedure is intended to address the infection, debride necrotic tissue, and, if necessary, assess the viability of surrounding structures to prevent further complications. The patient has been NPO since midnight. The history has been reviewed and the history and physical is current. The signed consent was confirmed and placed in the patient chart. Patient imaging has been reviewed and is consistent with the diagnosis. Under mild sedation, the patient was brought into the operating room and placed on the table in the supine position. Patient is receiving antibiotics around the clock on the floor, Therefore, additional antibiotic prophylaxix was not administered. MAC sedation was then performed by the anesthesiateam. A local field block using 0.5% Marcaine plain was then performed. A pneumatic tourniquet was then placed about the right ankle. The operative extremity was then prepped and draped in the usual fashion. After prep, the following procedure was then performed. Tourniquet was inflated 250 mmHg. Attention was directed to the right foot where a circumferential incision was made at the base of the hallux using a #15 blade. Dissection was carried down to the first metatarsophalangeal joint which was disarticulated. The hallux was then passed from the operative field. A Cranberry was then used to probe the amputation site and was noted to track proximally along the medial longitudinal arch. This was incised using #15 blade to expose the entirety of the tract. Purulence was noted in this area as well as necrotic tissue surrounding the flexor hallucis longus tendon sheath. The abscess formation was noted to be tracking along the anterior aspect of the tendon sheath which was incised to expose the flexor hallucis longus tendon. This was discolored and degenerative. This was excised from the foot and passed from the operative field. Rongeur was used to remove devitalized tissue from this area. Cultures aerobic and anaerobic were taken at this point. After removal of devitalized tissue hemostasis was achieved via electrocautery. Site was then irrigated with copious amounts of sterile saline via pulse lavage. Remaining tissue appeared healthy and viable. First metatarsal head did not appear to have cortical disruption. It was determined to leave the wound open at this time and to return coming days for delayed primary closure given the extent of infection. The wound was packed with half-inch iodoform packing gauze before being dressed with 4 x 4 gauze, ABD pads, Kerlix, Chester bandage. The patient tolerated the procedure and anesthesia well and without complication. The patient was transported from the operating room to the recovery room with vital signs stable and vascular status intact to all digits of the right foot. Thepatient was instructed to remain nonweightbearing to the operative extremity, to keep surgical dressing clean, dry and intact. The patient will be transferred back to the floor once anesthesia criteria is met. I will continue to round on and follow the patient in the inpatientsetting and provide recommendations to stabilize the patient for discharge.
[2025-05-14] MEDS: insulin glargine 100 units/1 mL 10 UNIT SUBCUT (21:30)
[2025-05-15] VITALS (9 sets, daily range): BP systolic 119–166; BP diastolic 53–82; PULSE 62–65; RESP 15–18; TEMP 36.5–36.8; O2SAT 94–96
[2025-05-15] MEDS: ondansetron 2 mg/ML SDV 2 mL 4 MG IVP ×2 (04:38→11:21)
[2025-05-15 05:14] LABS: Hematocrit 29.3 % (36-47); Hemoglobin 9.30 g/dL (11.27-16.99); Mean Corpuscular HGB Conc 31.7 g/dL (30-55); Mean Corpuscular Hemoglobin 28.7 pg (27-33); Mean Corpuscular Volume 90.4 fl (85-98); Nucleated Red Blood Cells % 0 %; Platelet Count 463 10^3/cmm (157-399); Red Blood Count 3.24 10^6/uL (3.85-5.65); White Blood Count 13.08 10^3/uL (3.29-11.43)
[2025-05-15 05:38] LABS: Magnesium 1.6 mg/dL (1.7-2.3)
--- NOTE | 2025-05-15 06:22 | P.CONIM_ITS ---
Providers/Reason For Consult 2 Consulting Physician/Specialty*: China Keyes MD/ Infectious Disease Reason for Consult*: osteomyelitis Requesting Physician: Mesfin Flores MD Attending Physician: Mesfin Flores MD Primary Care Provider: Preeti Silva NP History of Present Illness History of Present Illness Chyna Bettencourt is a 69 year old female with PMH gout, DM, dyslipidemia, HTN, CKD who was admitted via the ER with c/o progressive worsening of an ulcer over the plantar aspect of the great toe. She sustained a blister on the right great toe in March 2025 which progressed to a full thickness ulceration. She was brought in by her to generalized malaise, subjective chills at home. In the ER excisional debridement was perfromed to remove devitalized tissue down to the level of bone at the base of the distal phalanx. CX were taken which preliminarily show GNR, identification pending. Subsequently underwent Right hallux amputation, incision bone cortex right first metatarsal yesterday. MR imaging showed Findings of osteomyelitis of the proximal and distal phalanx bones of the great toe along with a 7 x 3.9 cm abscess along the plantar aspect along with changes of tenosynovitis along the flexor digitorum longus tendon. Review of Systems 2 General: Reports: 10 or more systems reviewed and unremarkable except in HPI and below Const: Denies: fever(s), chills or body aches Eyes: Denies: change in vision, blurry vision or photophobia ENMT: Reports: hoarseness; Denies: throat pain, enlarged tonsils, odynophagia or nasal congestion Card: Denies: chest pain, palpitations, irregular heart rhythm, edema, swelling of feet/ankles, lightheadedness, pre-syncope, dyspnea on exertion or orthopnea Resp: Denies: dyspnea, productive cough, non-productive cough, wheezing, stridor, pain on inspiration, change in phlegm color, hemoptysis or chest congestion GI: Denies: abdominal pain, nausea, vomiting, hematemesis, coffee ground emesis, dysphagia, heartburn, diarrhea, constipation, GI cramping, change in stool character, hematochezia or melena : Denies: flank pain, difficulty voiding, dysuria, urinary frequency, urinary urgency, urinary hesitancy or hematuria Musc: Denies: neck pain, back pain, extremity pain, joint swelling, joint warmth or deformity Neuro: Denies: headache(s), numbness in extremities, weakness in extremities, sensory changes, difficulty walking, frequent falls, dizziness, vertigo, behavioral changes, Slurred speech present or seizure-like activity Psych: Denies: anxiety, depression, suicidal ideation or homicidal ideation Endo: Denies: polyuria, polydipsia, tired all the time, cold intolerance or hot flashes Jared/Lymph: Denies: easy bruising or easy bleeding Medications/Allergies Home Medications ?Medication ?Instructions ?Recorded ?Confirmed ?Last Taken ?Type 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,machine sorter,cont #1 ea 08/08/22 05/13/25 Un known Rx ([employer]) insulin regular human 100 unit/mL 10 unit SUBCUT DAILY 12/21/23 05/13/25 05/12/25 History injection solution (Novolin R Regular U-100 Insulin) allopurinol 100 mg tablet 100 mg PO DAILY #90 tabs 02/2505/13/25 05/12/25 Rx amlodipine 10 mg tablet 10 mg PO DAILY 90 days #90 t abs 02/11/24 05/13/25 05/12/25 Rx atorvastatin 40 mg tablet 40 mg PO DAILY 90 days #90 t abs 02/11/24 05/13/25 05/12/25 Rx clopidogrel 75 mg tablet 75 mg PO DAILY 90 days #90 t abs 02/11/24 05/13/25 05/12/25 Rx famotidine 40 mg tablet 40 mg PO BID 90 days #180 ta bs 02/11/24 05/13/25 05/12/25 Rx furosemide 40 mg tablet 40 mg PO DAILY 90 days #90 t abs 02/11/24 05/13/25 Unknown Rx labetalol 100 mg tablet 100 mg PO DAILY 90 days #90 tabs 02/11/24 05/13/25 05/12/25 Rx loratadine 10 mg tablet 10 mg PO DAILY 90 days #90 t abs 02/11/24 05/13/25 05/12/25 Rx ondansetron HCl 4 mg tablet 4 mg PO Q6H PRN nausea and 02/11/24 05/13/25 Unknown Rx vomiting #90 tabs pantoprazole 40 mg tablet,delayed 40 mg PO BID 90 days #180 tabs 02/11/24 05/13/25 05/12/25 Rx release (Protonix) tizanidine 4 mg tablet 4 mg PO .QHS PRN muscle spas ticity 02/11/24 05/13/25 Unknown Rx 90 days #90 tabs amoxicillin 875 mg-potassium 1 tab PO BID 05/13/2503/2805/12/25 History clavulanate 125 mg tablet hydrocodone 5 mg-acetaminophen 325 1 tab PO Q8H PRN Pa in 05/13/25 05/13/25 Unknown History mg tablet insulin NPH isoph U-100 human 100 10 unit SUBCUT .@NOO N 05/13/25 05/13/25 05/12/25 History unit/mL subcutaneous suspension (Humulin N NPH U-100 Insulin (isophane susp)) spironolactone 25 1 tab PO DAILY 05/13/2505/0405/12/25 History mg-hydrochlorothiazide 25 mg tablet Allergies Allergy/AdvReac Type Severity Reaction Status Date / Time codeine Allergy ADR-Vomitin Verified 02/19/24 13:07 g Iodinated Contrast Media Allergy ALGY-Bliste Verified 02/19/24 13:07 r Current Medications Generic Name Dose Route Start Last Admin Trade Name Freq PRN Reason Stop Dose Admin Allopurinol 100 mg 05/13/25 05:00 05/15/25 05:05 Allopurinol 100 Mg Tablet PO 100 mg DAILY CRYSTAL Administration Amlodipine Besylate 10 mg 05/13/25 05:00 05/15/25 05:05 Amlodipine 10 Mg Tablet PO 10 mg DAILY CRYSTAL Administration Atorvastatin Calcium 40 mg 05/13/25 05:00 05/15/25 05:05 Atorvastatin 40 Mg Tablet PO 40 mg DAILY CRYSTAL Administration Clopidogrel Bisulfate 75 mg 05/13/25 05:00 05/15/25 05:05 Clopidogrel 75 Mg Tablet PO 75 mg DAILY CRYSTAL Administration Famotidine 40 mg 05/13/25 05:00 05/15/25 05:06 Famotidine 20 Mg Tablet PO 40 mg DAILY CRYSTAL Administration Heparin Sodium (Porcine) 5,000 unit 05/12/25 20:15 05/14/25 21:30 Heparin 5,000 Unit/Ml Inj 1 Ml SUBCUT 5,000 unit Q12H CRYSTAL Administration Piperacillin Sod/Tazobactam 50 mls @ 12.5 mls/hr 05/12/25 23:00 05/15/25 03:28 Sod 3.375 gm/ Sodium Chloride IV Infused Q12H CRYSTAL Infusion Vancomycin HCl 500 mg/ Sodium 100 mls @ 200 mls/hr 05/14/25 15:00 05/14/25 16:29 Chloride IV Infused Q24H CRYSTAL Infusion Insulin Glargine 10 unit 05/12/25 21:00 05/14/25 21:30 Insulin Glargine 100 Units/1 Ml SUBCUT 10 unit BEDTIME CRYSTAL Administration Insulin Human Lispro 0 unit 05/12/25 21:00 05/14/25 21:31 Insulin Lispro 100 Unit/1 Ml SUBCUT 2 unit WM&BEDTIME CRYSTAL Administration Protocol Labetalol HCl 100 mg 05/13/25 05:00 05/15/25 05:05 Labetalol 200 Mg Tablet PO 100 mg DAILY CRYSTAL Administration Loratadine 10 mg 05/13/25 05:00 05/15/25 05:05 Loratadine 10 Mg Tablet PO 10 mg DAILY CRYSTAL Administration Magnesium Oxide 400 mg 05/13/25 05:00 05/15/25 05:05 Magnesium Oxide 400 Mg Tablet PO 400 mg BID CRYSTAL Administration Ondansetron HCl 4 mg 05/12/25 21:58 05/15/25 04:38 Ondansetron 2 Mg/Ml Sdv 2 Ml IVP 4 mg Q6H PRN Administration NAUSEA AND VOMITING Oxycodone HCl 5 mg 05/12/25 20:08 05/14/25 21:33 Oxycodone 5 Mg Ir Tab/Cap PO 5 mg Q6H PRN Administration SEVERE PAIN PFSH Acute 2 PFSH: Medical History (Updated 05/16/25 @ 20:09 by China Keyes MD) Hyperlipidemia Hypertension HTN (hypertension) Hip fracture Type II diabetes mellitus, well controlled Diabetes Chronic kidney disease, stage 4 (severe) Tibial plateau fracture, right Closed fracture of tibial plateau Fall Femoral neck fracture Myocardial infarction UTI (urinary tract infection) CAD (coronary artery disease) Surgical History History of knee surgery History of tubal ligation History of cholecystectomy Social History (Updated 05/12/25 @ 20:47 by Jim Yadav MD) Smoking and tobacco/nicotine status: former use of tobacco/nicotine Quit status (tobacco/nicotine): has quit using Year quit tobacco: 1997 Alcohol intake: never Substance/Drug Use: never Additional social history: She wants DNR status as discussed with Jim Yadav MD and her on 05/12/2025 Previous occupational history: [employer] Vitals/I&O/Wt Last Vital Signs Temp 97.9 F 05/15/25 04:00 Pulse 65 05/15/25 04:00 Resp 17 05/15/25 04:00 BP 134/82 05/15/25 04:00 Pulse Ox 96 05/15/25 04:00 O2 Del Method Room Air 05/15/25 04:00 O2 Flow Rate 10 05/14/25 12:54 05/14/25 05/14/25 05/15/25 14:59 22:59 06:59 Intake Total 213.5 / 213.5 100 / 313.5 290 / 603.5 Output Total 400 / 420 200 / 620 Balance 193.5 / 193.5 -300 / -106.5 90 / -16.5 Weight last 48 hrs Weight 78.018 kg Weight 75.75 kg Weight 75.75 kg Physical Exam 2 Narrative: Patient assessed via telehealth Gen: Awake, alert and oriented, no acute distress, laying comfortably in bed. Chest: normal respiratory effort Neuro: No focal deficits grossly Ext: surgical dressing in place not opened for exam Data 05/16/25 04:34 05/16/25 04:34 Micro: Microbiology 05/14/25 12:12 Gram Stain - Final Toe - #1 05/12/25 20:11 Gram Stain - Final Toe - Toe Wound Culture - Preliminary Gram Negative Rods 05/12/25 20:11 Anaerobic Culture - Preliminary Toe - #1 Other data: Patient: hCyna Bettencourt Unit #: [id number] : 1955 Age/Sex: 69 / F ADM Date: 05/12/25 Loc: [facility] Room/Bed: 264-1 Attending: Mesfin Flores MD Ordering Provider/Ordering MD: Jim Yadav MD Date of Service: 05/13/25 Procedure(s): MR foot RT wo con* [id number] Accession Number(s): [id number] Report Number: [id number] PROCEDURE INFORMATION: Exam: MR Right Lower Extremity Other Than Joint Without Contrast; Foot Exam date and time: 05/13/2025 2:07 PM Age: 69 years old Clinical indication: Condition or disease; Other: Diabetic ulcer; Additional info: Halux and mtp infection osteomyelitis and abscess, diabetic ulcer x 3 months TECHNIQUE: Imaging protocol: Magnetic resonance imaging of the right lower extremity without contrast. Exam focused on the foot. COMPARISON: CT hip RT wo con* [id number] 09/08/2023 6:30 PM FINDINGS: Bones/joints: There is abnormal low T1 signal throughout the distal phalanx of the great toe and to a lesser degree within the proximal phalanx of the great toe, consistent with osteomyelitis of both bones. LIGAMENTS: Lisfranc ligament: Lisfranc ligament is unremarkable. No evidence of tear. TENDONS: Flexor tendons of foot: Tendinopathy and tenosynovitis of the flexor digitorum longus tendon at the level of the 1st metatarsal mid diaphysis, series 1101, image 7. This is adjacent to the previously described plantar fluid collection and infectious tenosynovitis cannot be excluded. Extensor tendons of foot: The extensor tendons are unremarkable. Soft tissues: Soft tissue ulcer at the medial distal aspect of the great toe, series 801, image 17, extending to the medial inferior aspect of the base of the distal phalanx of the great toe. There is a fluid collection within the subcutaneous soft tissue of the plantar aspect of the foot underlying the 1st metatarsal bone and medial cuneiform, extending 7.1 cm in length, 3.9 cm in transverse dimension and 0.9 cm in craniocaudal dimension, series 1101, image 8 and series 601, image 16. Infected fluid is not excluded. There is edema of the soft tissues of the distal foot, greatest at the site of ulceration and extending proximally. There is diffuse atrophy of the foot musculature. Plantar fascia: Unremarkable as visualized. MR/MR foot RT wo con* [id number] IMPRESSION: 1. Soft tissue ulcer at the medial distal aspect of the great toe, series 801, image 17, extending to the medial inferior aspect of the base of the distal phalanx of the great toe. 2. Findings of osteomyelitis of the proximal and distal phalanx bones of the great toe. 3. Fluid collection within the subcutaneous soft tissue of the plantar aspect of the foot underlying the 1st metatarsal bone and medial cuneiform, extending 7.1 cm in length, 3.9 cm in transverse dimension and 0.9 cm in craniocaudal dimension, series 1101 image 8 and series 601, image 16. Infected fluid is not excluded. 4. Tendinopathy and tenosynovitis of the flexor digitorum longus tendon at the level of the 1st metatarsal mid diaphysis, series 1101, image 7. This is adjacent to the previously described plantar fluid collection and infectious tenosynovitis cannot be excluded. A&P Assessment and plan 1. Osteomyelitis: 2. Foot abscess: 3. Tenosynovitis: 4. Type 2 diabetes mellitus with diabetic neuropathy: Plan: 69 F with DM, CKD, admitted with worsening right foot ulcer progressed to osteomyelitis, tenosynovitis and foot abscess. S/p excisional debridement at bedside on 05/12 followed by Right hallux amputation, incision bone cortex right first metatarsal on 05/15. Blood cx remain negative Op note reviewed and case discussed with podiatry, concern for proximal extension of cellulitis and tenosynovitis beyong amputation margins. CX from 05/12 with GNR thus far, will follow final cultures Anticipate that patient will likely require prolonged iv abx infusion given extent of infection Will follow with pending cx results PDMP PDMP Reviewed: Not Reviewed Consult Attestations 2 Medical Necessity Statement: per admitting Coding Level of Care Code Acute Code for Chg Fwd Diagnoses Osteomyelitis M86.9 Foot abscess L02.619 Tenosynovitis M65.90 Type 2 diabetes mellitus with diabetic neuropathy E11.40
[2025-05-15] MEDS: heparin 5,000 unit/mL INJ 1 mL 5000 UNIT SUBCUT ×2 (08:05→20:40)
[2025-05-15] MEDS: oxyCODONE 5 mg IR Tab/Cap PO ×3 (08:07→23:22)
[2025-05-15] MEDS: magnesium sulfate premix 1 GM/100 ML PIGGYBACK IV (08:59)
[2025-05-15 09:31] LABS: Alanine Aminotransferase < 5 U/L (0-33); Albumin Level 3.0 g/dL (3.5-5.2); Alkaline Phosphatase 109 U/L (35-105); Anion Gap 19.0 (5-19); Aspartate Amino Transferase 10 U/L (0-32); Blood Urea Nitrogen 40 mg/dL (8-23); Calcium 9.1 mg/dL (8.5-10.5); Carbon Dioxide 17 mmol/L (22-29); Chloride 105 mmol/L (98-107); Globulin 2.8 g/dL (1.3-4.6); Glucose 84 mg/dL (65-115); Osmolality Calculated 293 mOsm/kg (285-295); Potassium 4.0 mmol/L (3.5-5.1); Sodium 137 mmol/L (136-145); Total Protein 5.8 g/dL (6.6-8.7)
[2025-05-15] MEDS: piperacillin-tazobactam 3.375 GM in sodium chloride 0.9% (plus) 50 ML IV ×2 (11:02→23:23)
--- NOTE | 2025-05-15 11:02 | PC.SOCIAL ---
IMM Updated Updated pt on IMM. No questions voiced. Provided a copy to pt. Initialed, dated, & timed a copy & placed in chart.
--- NOTE | 2025-05-15 12:09 | P.PN_ITS ---
Subjective 2 Subjective: No acute vents overnight. Patient has remained hemodynamically stable and afebrile. Underwent amputation and I&D yesterday. Remains on room air. Vitals/I&O/Wt Last Vital Signs Temp 97.7 F 05/15/25 11:09 Pulse 64 05/15/25 11:09 Resp 16 05/15/25 08:07 BP 134/73 05/15/25 11:09 Pulse Ox 95 05/15/25 11:09 O2 Del Method Room Air 05/15/25 11:09 O2 Flow Rate 10 05/14/25 12:54 05/14/25 05/15/25 05/15/25 22:59 06:59 14:59 Intake Total 100 / 313.5 290 / 603.5 100 / 100 Output Total 400 / 420 200 / 620 Balance -300 / -106.5 90 / -16.5 100 / 100 Weight last 48 hrs Weight 78.018 kg Weight 75.75 kg Weight 75.75 kg Physical Exam 2 Narrative: AO x 3 S1-S2 regular, no no murmurs, no rub Normal vesicular breath sounds all over lung rocha, occasional rhonchi, decreased air entry bilaterally in lower zone Abdomen soft nontender. Wound on admission. Extremity: NARRATIVE EXTREMITY EXAM: Wound on admission. Data 05/15/25 04:35 05/15/25 04:35 Micro: Microbiology 05/12/25 20:11 Gram Stain - Final Toe - Toe Wound Culture - Preliminary Coag positive Staphylococcus Gram Negative Rods Gram Negative Rods#2 05/14/25 12:12 Gram Stain - Final Toe - #1 Abscess Culture - Preliminary 05/12/25 20:11 Anaerobic Culture - Preliminary Toe - #1 A&P Assessment and plan 1. Osteomyelitis: 2. Type 2 diabetes mellitus with diabetic neuropathy: She has modest sensation in her foot it is greatly diminished from normal based on minimal pain with exploration at bedside 3. PAD (peripheral artery disease): Continue Plavix 4. Diabetic foot ulcer: 5. Diabetic foot ulcer with osteomyelitis: Patient will need surgery. Due to the the severity of her illness will treat empirically with vancomycin and Zosyn pharmacy to dose due to renal failure. The patient will have MRI of the right foot without contrast. She has some fluctuance in her MTP region 6. Chronic kidney disease, stage 4 (severe): Stable hold diuretics for now. Potassium held magnesium is continued labs to be checked now 7. Hypertension: Continue blood pressure medications 8. Hyperlipidemia: Continue atorvastatin Plan: Plan for today: Appreciate podiatry and ID recommendations. Patient will need up to 4 to 6 weeks of IV antibiotics. Will await cultures. So far wound culture growing 2 different gram-negative rods and coag positive staph. Patient does have history of infection with Klebsiella and MRSA in the past. Continue with current IV vancomycin and Zosyn for now. Plan for PICC line placement. Plan for delayed closure on Sunday. Blood sugar stable. Continue with current dose of Lantus 10 units along with sliding scale. Appreciate A1c. Insulin sliding scale. Continue with home dose of Lantus. DNR/DNI N.p.o. for now. Carb consistent diet postoperatively Famotidine for PUD prophylaxis Discharge planning: Patient would most likely need IV antibiotics on discharge. Possible discharge to SNF for IV antibiotics versus home with home health. PDMP PDMP Reviewed: Not Reviewed Attestations 2 Medical Necessity Statement*: Requires further hospitalization for management of osteomyelitis with abscess requiring OR debridement, IV antibiotics as an outpatient while safe discharge planning is sought Diagnoses Osteomyelitis M86.9 Type 2 diabetes mellitus with diabetic neuropathy E11.40 PAD (peripheral artery disease) I73.9 Diabetic foot ulcer E11.621; L97.509 Diabetic foot ulcer with osteomyelitis E11.621; E11.69; L97.509; M86.9 Chronic kidney disease, stage 4 (severe) N18.4 Hypertension I10 Hyperlipidemia E78.5
--- NOTE | 2025-05-15 16:00 | P.PN_ITS ---
Subjective 2 Subjective: Patient seen at bedside. Resting comfortably. Pain is well-controlled with pain medication. Vitals/I&O/Wt Last Vital Signs Temp 97.7 F 05/15/25 11:09 Pulse 64 05/15/25 11:09 Resp 16 05/15/25 08:07 BP 134/73 05/15/25 11:09 Pulse Ox 95 05/15/25 11:09 O2 Del Method Room Air 05/15/25 11:09 O2 Flow Rate 10 05/14/25 12:54 05/15/25 05/15/25 05/15/25 06:59 14:59 22:59 Intake Total 290 / 603.5 100 / 100 50 / 150 Output Total 200 / 620 Balance 90 / -16.5 100 / 100 50 / 150 Weight last 48 hrs Weight 172 lb Weight 167 lb Weight 167 lb Physical Exam 2 Narrative: BELOW IS A FOCUSED LOWER EXTREMITY EXAM GENERAL: A&O x 3 VASCULAR: DP/PT pulses diminished with cap refill intact to distal digits sluggish. Edema to right hallux. DERMATOLOGICAL: Right foot surgical dressing clean, dry, intact. No strikethrough noted. MUSCULOSKELETAL: Status post right hallux amputation NEUROLOGICAL: Neurological sensation to the affected foot and ankle is diminished IMAGING: Three-view x-rays of right foot obtained in the emergency department were independently turbid by me. These show erosive changes of plantar aspect of distal phalanx with fragmentation and 2 small radiolucencies consistent with subcutaneous emphysema. Data 05/15/25 04:35 05/15/25 04:35 Micro: Microbiology 05/12/25 20:11 Gram Stain - Final Toe - Toe Wound Culture - Preliminary Coag positive Staphylococcus Gram Negative Rods Gram Negative Rods#2 05/14/25 12:12 Gram Stain - Final Toe - #1 Abscess Culture - Preliminary A&P Assessment and plan 1. Osteomyelitis: 2. Type 2 diabetes mellitus with diabetic neuropathy: 3. PAD (peripheral artery disease): 4. Diabetic foot ulcer: Plan: -Right hallux wound with osteomyelitis -Labs and vitals reviewed -WBC 13.08 -ESR 53 -CRP 50.5 - VSS -Cultures aerobic and anaerobic cultures obtained in the emergency department upon debridement showing multiple gram-negative rods and coag positive staph -Abx Vanco/Zosyn -Diet: Okay for diet - Plan to return to the OR on 05/18/2025 for delayed primary closure. I discussed with patient that she will need 6 weeks of IV antibiotics and PICC line placement due to extensiveness of the infection. -Pain Mgmt: Per primary team -Weight bearing: As tolerated for transfers only to right foot -Dressings: Dry sterile dressing reinforce if needed -Continue current Abx therapy until ID and Sensitivity results -Trend labs -Discharge plan: To be determined -Podiatry will continue to round on patient daily and provide recommendations PDMP PDMP Reviewed: Not Reviewed Attestations 2 Medical Necessity Statement*: Per primary team Coding Level of Care Code Acute Code for Chg Fwd Diagnoses Osteomyelitis M86.9 Type 2 diabetes mellitus with diabetic neuropathy E11.40 PAD (peripheral artery disease) I73.9 Diabetic foot ulcer E11.621; L97.509
[2025-05-15] MEDS: insulin glargine 100 units/1 mL 10 UNIT SUBCUT (20:38)
[2025-05-16] VITALS (7 sets, daily range): BP systolic 120–168; BP diastolic 62–72; PULSE 59–70; RESP 15–18; TEMP 36.6–36.9; O2SAT 94–97
[2025-05-16 04:52] LABS: Hematocrit 29.5 % (36-47); Hemoglobin 9.40 g/dL (11.27-16.99); Mean Corpuscular HGB Conc 31.9 g/dL (30-55); Mean Corpuscular Hemoglobin 29.3 pg (27-33); Mean Corpuscular Volume 91.9 fl (85-98); Nucleated Red Blood Cells % 0 %; Platelet Count 459 10^3/cmm (157-399); Red Blood Count 3.21 10^6/uL (3.85-5.65); White Blood Count 12.65 10^3/uL (3.29-11.43)
[2025-05-16 05:13] LABS: Magnesium 1.7 mg/dL (1.7-2.3)
[2025-05-16 05:15] LABS: Alanine Aminotransferase 9 U/L (0-33); Albumin Level 3.1 g/dL (3.5-5.2); Alkaline Phosphatase 254 U/L (35-105); Anion Gap 17.0 (5-19); Aspartate Amino Transferase 56 U/L (0-32); Blood Urea Nitrogen 31 mg/dL (8-23); Calcium 9.3 mg/dL (8.5-10.5); Carbon Dioxide 19 mmol/L (22-29); Chloride 105 mmol/L (98-107); Globulin 2.8 g/dL (1.3-4.6); Glucose 106 mg/dL (65-115); Osmolality Calculated 291 mOsm/kg (285-295); Potassium 4.0 mmol/L (3.5-5.1); Sodium 137 mmol/L (136-145); Total Protein 5.9 g/dL (6.6-8.7)
[2025-05-16] MEDS: heparin 5,000 unit/mL INJ 1 mL 5000 UNIT SUBCUT ×2 (08:32→20:17)
--- NOTE | 2025-05-16 11:25 | PM.PN ---
Subjective Subjective: Patient seen at bedside this morning. Resting comfortably. Pain is well-controlled. Vitals/I&O/Wt Last Vital Signs Temp 98.1 F 05/16/25 07:40 Pulse 62 05/16/25 07:40 Resp 18 05/16/25 07:40 BP 149/72 05/16/25 07:40 Pulse Ox 94 05/16/25 07:40 O2 Del Method Room Air 05/16/25 07:40 O2 Flow Rate 10 05/14/25 12:54 05/15/25 05/16/25 05/16/25 22:59 06:59 14:59 Intake Total 780 / 880 290 / 1170 240 / 240 Balance 780 / 880 290 / 1170 240 / 240 Weight last 48 hrs Weight 172 lb Weight 172 lb Physical Exam Narrative: BELOW IS A FOCUSED LOWER EXTREMITY EXAM GENERAL: A&O x 3 VASCULAR: DP/PT pulses diminished with cap refill intact to distal digits sluggish. Edema to right hallux. DERMATOLOGICAL: Right foot surgical dressing clean, dry, intact. No strikethrough noted. Dressing changed. Wound examined margins of amputation site show mild necrosis. No further purulence or active drainage. Erythema has receded. MUSCULOSKELETAL: Status post right hallux amputation NEUROLOGICAL: Neurological sensation to the affected foot and ankle is diminished IMAGING: Three-view x-rays of right foot obtained in the emergency department were independently turbid by me. These show erosive changes of plantar aspect of distal phalanx with fragmentation and 2 small radiolucencies consistent with subcutaneous emphysema. Data 05/16/25 04:34 05/16/25 04:34 Micro: Microbiology 05/12/25 20:11 Anaerobic Culture - Preliminary Toe - #1 05/14/25 12:12 Gram Stain - Final Toe - #1 Anaerobic Culture - Preliminary Abscess Culture - Preliminary 05/12/25 20:11 Gram Stain - Final Toe - Toe Wound Culture - Preliminary Coag positive Staphylococcus Gram Negative Rods Gram Negative Rods#2 A&P Assessment and plan 1. Osteomyelitis: 2. Type 2 diabetes mellitus with diabetic neuropathy: 3. PAD (peripheral artery disease): 4. Diabetic foot ulcer: Plan: -Right hallux wound with osteomyelitis -Labs and vitals reviewed - Leukocytosis improving - VSS -Cultures aerobic and anaerobic cultures obtained in the emergency department upon debridement showing multiple gram-negative rods and coag positive staph -Abx Vanco/Zosyn -Diet: Okay for diet - Plan to return to the OR on 05/18/2025 for delayed primary closure. I discussed with patient that she will need 6 weeks of IV antibiotics and PICC line placement due to extensiveness of the infection. -Pain Mgmt: Per primary team -Weight bearing: As tolerated for transfers only to right foot -Dressings: Saline wet-to-dry. Changed by podiatry this morning 05/16/2025. No need to change prior to surgery on 05/18/2025 -Continue current Abx therapy until ID and Sensitivity results -Trend labs -Discharge plan: To be determined -Podiatry will continue to round on patient daily and provide recommendations PDMP PDMP Reviewed: Not Reviewed Attestations Medical Necessity Statement*: See hospitalist note Coding Level of Care Code Acute Code for [facility] Fwd Diagnoses Osteomyelitis M86.9 Type 2 diabetes mellitus with diabetic neuropathy E11.40 PAD (peripheral artery disease) I73.9 Diabetic foot ulcer E11.621; L97.509
[2025-05-16] MEDS: oxyCODONE 5 mg IR Tab/Cap PO (12:28)
[2025-05-16] MEDS: piperacillin-tazobactam 3.375 GM in sodium chloride 0.9% (plus) 50 ML IV (12:29)
--- NOTE | 2025-05-16 17:26 | P.PN_ITS ---
Subjective 2 Subjective: No acute overnight events. Patient resting comfortably. Denies pain/discomfort Vitals/I&O/Wt Last Vital Signs Temp 98.3 F 05/16/25 16:14 Pulse 68 05/16/25 16:14 Resp 15 05/16/25 16:14 BP 168/62 05/16/25 16:14 Pulse Ox 94 05/16/25 16:14 O2 Del Method Room Air 05/16/25 16:14 O2 Flow Rate 10 05/14/25 12:54 05/16/25 05/16/25 05/16/25 06:59 14:59 22:59 Intake Total 290 / 1170 480 / 480 50 / 530 Balance 290 / 1170 480 / 480 50 / 530 Weight last 48 hrs Weight 78.018 kg Weight 78.018 kg Physical Exam 2 Narrative: AO x 3 S1-S2 regular, no no murmurs, no rub Normal vesicular breath sounds all over lung rocha, occasional rhonchi, decreased air entry bilaterally in lower zone Abdomen soft nontender. Data 05/16/25 04:34 05/16/25 04:34 Micro: Microbiology 05/14/25 12:12 Gram Stain - Final Toe - #1 Anaerobic Culture - Preliminary Abscess Culture - Preliminary Coag positive Staphylococcus Gram Negative Rods 05/12/25 20:11 Gram Stain - Final Toe - Toe Wound Culture - Final Methicillin Resis Staph Aureus Pseudomonas aeruginosa Morganella morganii 05/12/25 20:11 Anaerobic Culture - Preliminary Toe - #1 MRI: Radiologist's impression: IMPRESSION: 1. Soft tissue ulcer at the medial distal aspect of the great toe, series 801, image 17, extending to the medial inferior aspect of the base of the distal phalanx of the great toe. 2. Findings of osteomyelitis of the proximal and distal phalanx bones of the great toe. 3. Fluid collection within the subcutaneous soft tissue of the plantar aspect of the foot underlying the 1st metatarsal bone and medial cuneiform, extending 7.1 cm in length, 3.9 cm in transverse dimension and 0.9 cm in craniocaudal dimension, series 1101 image 8 and series 601, image 16. Infected fluid is not excluded. 4. Tendinopathy and tenosynovitis of the flexor digitorum longus tendon at the level of the 1st metatarsal mid diaphysis, series 1101, image 7. This is adjacent to the previously described plantar fluid collection and infectious tenosynovitis cannot be excluded A&P Assessment and plan 1. Diabetic foot ulcer with osteomyelitis: 2. Type 2 diabetes mellitus with diabetic neuropathy: 3. Hypertension: 4. Hyperlipidemia: 5. Chronic kidney disease, stage 4 (severe): Plan: 1. Osteomyelitis right hallux, abscess right foot- underwent right hallux amputation and incision and drainage on 05/14 Plan for return to OR on 05/[address] Conner for delayed primary closure Continue IV antibiotics vancomycin and zosyn Follow cultures ID consult obtained and appreciate recs Plan for PICC line and IV antibiotics for 6 weeks 2. Type 2 diabetes mellitus with diabetic neuropathy: She has modest sensation in her foot it is greatly diminished from normal based on minimal pain with exploration at bedside Continue lantus and SSI Monitor closely for hypoglycemia 3. PAD (peripheral artery disease): Continue Plavix 4. Diabetic foot ulcer: as noted above 5. Diabetic foot ulcer with osteomyelitis: as noted above 6. Chronic kidney disease, stage 4 (severe): serum creatinine 2.2 which is her baseline range Monitor 7. Hypertension: Continue blood pressure medications 8. Hyperlipidemia: Continue atorvastatin DVT prophylaxis- sq heparin Discussed with patient Discussed with care team members Cod status- Full PDMP PDMP Reviewed: Not Reviewed Attestations 2 Medical Necessity Statement*: Requires further hospitalization for management of osteomyelitis with abscess requiring OR debridement, IV antibiotics as an outpatient while safe discharge planning is sought Coding Level of Care Code 47423 Diagnoses Diabetic foot ulcer with osteomyelitis E11.621; E11.69; L97.509; M86.9 Type 2 diabetes mellitus with diabetic neuropathy E11.40 Hypertension I10 Hyperlipidemia E78.5 Chronic kidney disease, stage 4 (severe) N18.4
[2025-05-16] MEDS: insulin glargine 100 units/1 mL 10 UNIT SUBCUT (21:20)
--- NOTE | 2025-05-16 21:29 | P.PN_ITS ---
Subjective 2 Subjective: ID progress note Seen via telehealth no acute events leukocytosis trending down 18K on admit--> 12 Medications: Reviewed: Yes Vitals/I&O/Wt Last Vital Signs Temp 98.4 F 05/16/25 20:00 Pulse 70 05/16/25 20:00 Resp 18 05/16/25 20:00 BP 144/65 05/16/25 20:00 Pulse Ox 94 05/16/25 16:14 O2 Del Method Room Air 05/16/25 16:14 O2 Flow Rate 10 05/14/25 12:54 05/16/25 05/16/25 05/16/25 06:59 14:59 22:59 Intake Total 290 / 1170 480 / 480 420 / 900 Balance 290 / 1170 480 / 480 420 / 900 Weight last 48 hrs Weight 78.018 kg Weight 78.018 kg Physical Exam 2 Narrative: Patient assessed via telehealth Gen: Awake, alert and oriented, no acute distress, laying comfortably in bed. Chest: normal respiratory effort Neuro: No focal deficits grossly Ext: surgical dressing in place not opened for exam Data 05/16/25 04:34 05/16/25 04:34 Micro: Microbiology 05/14/25 12:12 Gram Stain - Final Toe - #1 Anaerobic Culture - Preliminary Abscess Culture - Preliminary Coag positive Staphylococcus Gram Negative Rods 05/12/25 20:11 Gram Stain - Final Toe - Toe Wound Culture - Final Methicillin Resis Staph Aureus Pseudomonas aeruginosa Morganella morganii 05/12/25 20:11 Anaerobic Culture - Preliminary Toe - #1 NAME: Chyna Bettencourt LOC: [facility] #: [id number] AGE/SX: 69/F ROOM: 264 R E05/12/[address]: Roya Cohen MD : 1955 BED: 1 D IS: FAX #: STATUS: ADM IN TLOC: Spec #: [id number] Benjamín: 05/12/25-2010 Status: COMP Req #: [id number] Recd: 05/12/[address]: Jaya Conner DPM Src: Toe SpDesc: Toe Ordered: WC and GS Comments: Comment Aerobic and anaerobic cultures--LISDA Procedure Result Verified Site Gram Stain Final 05/13/25-1404 Result NO WHITE BLOOD CELLS SCANT GRAM NEGATIVE RODS RARE GRAM POSITIVE COCCI IN PAIRS Wound Culture Final 05/16/25-1504 Organism 1 Methicillin Resis Staph Aureus Growth HEAVY Organism 2 Pseudomonas aeruginosa Growth HEAVY Organism 3 Morganella morganii Growth HEAVY HEAVY MIXED SUPERFICIAL ROBLES ON DAY 3 CRITICAL RESULT YES/NO: YES CRITICAL CALLED BY: JEANNIE TO AND READ BACK BY: ARUN CAMARENA NURSE TO CALL BACK DATE: 05/16/25 TIME: 1246 2ND CRITICAL RES YES/NO: YES 2ND CRITICAL CALLED BY: JEANNIE 2ND TO AND READ BACK BY: GRACIELA DATE: 05/16/25 2ND CRITICAL TIME: 1504 MRSA P aerugino M morganii M.I.C. RX M.I.C. RX M.I.C. RX --------- ------ --------- ------ --------- ------ * Amikacin <=16 S * Ampicillin/Sulbactam >16/8 R * Aztreonam <=4 S <=4 S * Cefepime <=8 S <=8 S * Ceftriaxone <=1 S * Ciprofloxacin <=1 S <=1 S <=1 S * Clindamycin >4 R * Erythromycin >4 R * Gentamicin <=4 S <=2 S * Imipenem <=1 S 4 R * Levofloxacin <=1 S <=2 S <=2 S * Linezolid 2 S * Moxifloxacin <=0.5 S * Oxacillin >2 R * Penicillin >8 R * Rifampin <=1 S * Tetracycline <=4 S <=4 S * Trimethoprim/Sulfamethoxazole <=0.5/9.5 S <=2/38 S Vancomycin 2 S * Piperacillin/Tazobactam <=16 S <=16 S Daptomycin 1 S Wound Culture Preliminary (changed) 05/15/25-1030 Organism 1 Coag positive Staphylococcus Growth HEAVY Organism 2 Gram Negative Rods Growth HEAVY Organism 3 Gram Negative Rods#2 Growth HEAVY DAY 2, RESULTS TO FOLLOW Wound Culture Preliminary (changed) 05/14/25-1611 Organism 1 Gram Negative Rods Growth HEAVY DAY 1, RESULTS TO FOLLOW NAME: Chyna Bettencourt LOC: [facility] #: [id number] AGE/SX: 69/F ROOM: 264 R E05/12/[address]: Roya Cohen MD : 1955 BED: 1 D IS: FAX #: STATUS: ADM IN TLOC: Spec #: [id number] Benjamín: 05/12/25 Status: RES Req #: [id number] Recd: 05/12/[address]: Luis Vargas DO Src: Blood SpDesc: Ordered: Bcult Procedure Result Verified Site Blood Culture Preliminary 05/13/25 NEGATIVE TO DATE Blood Culture Preliminary (changed) 05/12/25 SPECIMEN COLLECTED NAME: Chyna Bettencourt LOC: [facility] #: [id number] AGE/SX: 69/F ROOM: 264 R E05/12/[address]: Roya Cohen MD : 1955 BED: 1 D IS: FAX #: STATUS: ADM IN TLOC: Spec #: [id number] Benjamín: 05/12/25 Status: RES Req #: [id number] Recd: 05/12/[address]: Luis Vargas DO Src: Blood SpDesc: Ordered: Bcult Procedure Result Verified Site Blood Culture Preliminary 05/13/25 NEGATIVE TO DATE Blood Culture Preliminary (changed) 05/12/25 SPECIMEN COLLECTED A&P Assessment and plan 1. Osteomyelitis: 2. Foot abscess: 3. Tenosynovitis: 4. Type 2 diabetes mellitus with diabetic neuropathy: Plan: 69 F with DM, CKD, admitted with worsening right foot ulcer progressed to osteomyelitis, tenosynovitis and foot abscess. S/p excisional debridement at bedside on 05/12 followed by Right hallux amputation, incision bone cortex right first metatarsal on 05/15. Blood cx remain negative Op note reviewed and case discussed with podiatry, concern for proximal extension of cellulitis and tenosynovitis beyong amputation margins. CX from 05/12 with GNR thus far, will follow final cultures Anticipate that patient will likely require prolonged iv abx infusion given extent of infection Will follow with pending cx results 05/16/25 : Wound cx from 05/12 with Pseudomonas aeruginosa and MRSA. From 05/14 OR thus far GNR and coag positive staph, anticipate to be pseudomonas and MRSA. D/c ZOsyn. Changed to cefepime 1 g iv q12h (dosed for cr cl of 23). COntinue vancomycin with trough monitoring, goal 15-20. Discussed with patient discharge with total 6 weeks of iv abx given extent of infection and involvement more proximally. She is overhwelmed at the idea of iv abx use, and does not wish to go to SNF at this time. Explained options of home iv abx use vs outpatient iv abx infusion at the infusion center. She will discuss with her and give us a final decision. Should she agree to discharge with iv abx, will recommend Cefepime 2g iv daily (for cr cl 23) + Daptomcyin 8mg/kg iv daily for 6 weeks. Daptomycin chosen over vancomycin for ability for once daily infusions and less frequent monitoring interval, CKD with fluctuating kidney function. Weekly CBC, Creat, LFT, CRP and CPK while on above abx to be fexed to ID clinic for review. Will follow PDMP PDMP Reviewed: Not Reviewed Attestations 2 Medical Necessity Statement*: per admitting note Coding Level of Care Code Acute Code for [facility] Fwd Diagnoses Osteomyelitis M86.9 Foot abscess L02.619 Tenosynovitis M65.90 Type 2 diabetes mellitus with diabetic neuropathy E11.40
[2025-05-17] VITALS (8 sets, daily range): BP systolic 128–158; BP diastolic 54–76; PULSE 65–78; RESP 15–18; TEMP 36.7–37.1; O2SAT 92–97
[2025-05-17 04:20] LABS: Hematocrit 29.9 % (36-47); Hemoglobin 9.40 g/dL (11.27-16.99); Mean Corpuscular HGB Conc 31.4 g/dL (30-55); Mean Corpuscular Hemoglobin 29.2 pg (27-33); Mean Corpuscular Volume 92.9 fl (85-98); Nucleated Red Blood Cells % 0 %; Platelet Count 342 10^3/cmm (157-399); Red Blood Count 3.22 10^6/uL (3.85-5.65); White Blood Count 12.37 10^3/uL (3.29-11.43)
[2025-05-17] MEDS: oxyCODONE 5 mg IR Tab/Cap PO ×3 (04:22→19:46)
[2025-05-17] MEDS: cefepime 1,000 mg SDV 1000 MG IVP ×2 (04:22→17:22)
[2025-05-17 04:38] LABS: Alanine Aminotransferase 7 U/L (0-33); Albumin Level 3.2 g/dL (3.5-5.2); Alkaline Phosphatase 262 U/L (35-105); Aspartate Amino Transferase 13 U/L (0-32); Blood Urea Nitrogen 24 mg/dL (8-23); Calcium 9.1 mg/dL (8.5-10.5); Carbon Dioxide 21 mmol/L (22-29); Chloride 104 mmol/L (98-107); Globulin 2.5 g/dL (1.3-4.6); Glucose 96 mg/dL (65-115); Osmolality Calculated 290 mOsm/kg (285-295); Sodium 138 mmol/L (136-145); Total Protein 5.7 g/dL (6.6-8.7)
[2025-05-17] MEDS: ondansetron 2 mg/ML SDV 2 mL 4 MG IVP (04:43)
[2025-05-17 04:48] LABS: Anion Gap 17.3 (5-19); Potassium 4.3 mmol/L (3.5-5.1)
[2025-05-17] MEDS: heparin 5,000 unit/mL INJ 1 mL 5000 UNIT SUBCUT (09:17)
--- NOTE | 2025-05-17 15:12 | P.PN_ITS ---
Subjective 2 Subjective: Patient resting comfortably. No new complaints Vitals/I&O/Wt Last Vital Signs Temp 98.1 F 05/17/25 11:25 Pulse 68 05/17/25 11:25 Resp 18 05/17/25 13:33 BP 128/54 05/17/25 11:25 Pulse Ox 96 05/17/25 11:25 O2 Del Method Room Air 05/17/25 11:25 O2 Flow Rate 10 05/14/25 12:54 05/17/25 05/17/25 05/17/25 06:59 14:59 22:59 Intake Total 120 / 1020 720 / 720 Output Total 500 / 500 Balance 120 / 1020 220 / 220 Weight last 48 hrs Weight 73.964 kg Weight 78.018 kg Physical Exam 2 Narrative: AO x 3 S1-S2 regular, no no murmurs, no rub Normal vesicular breath sounds all over lung rocha, occasional rhonchi, decreased air entry bilaterally in lower zone Abdomen soft nontender Data 05/17/25 03:30 05/17/25 03:30 Micro: Microbiology 05/14/25 12:12 Gram Stain - Final Toe - #1 Anaerobic Culture - Preliminary Abscess Culture - Preliminary Coag positive Staphylococcus Gram Negative Rods 05/12/25 20:11 Gram Stain - Final Toe - Toe Wound Culture - Final Methicillin Resis Staph Aureus Pseudomonas aeruginosa Morganella morganii MRI: Radiologist's impression: MRI: Radiologist's impression: IMPRESSION: 1. Soft tissue ulcer at the medial distal aspect of the great toe, series 801, image 17, extending to the medial inferior aspect of the base of the distal phalanx of the great toe. 2. Findings of osteomyelitis of the proximal and distal phalanx bones of the great toe. 3. Fluid collection within the subcutaneous soft tissue of the plantar aspect of the foot underlying the 1st metatarsal bone and medial cuneiform, extending 7.1 cm in length, 3.9 cm in transverse dimension and 0.9 cm in craniocaudal dimension, series 1101 image 8 and series 601, image 16. Infected fluid is not excluded. 4. Tendinopathy and tenosynovitis of the flexor digitorum longus tendon at the level of the 1st metatarsal mid diaphysis, series 1101, image 7. This is adjacent to the previously described plantar fluid collection and infectious tenosynovitis cannot be excluded A&P Assessment and plan 1. Diabetic foot ulcer with osteomyelitis: 1. Osteomyelitis right hallux, abscess right foot- underwent right hallux amputation and incision and drainage on 05/14 Plan for return to OR on 05/[address] Conner for delayed primary closure On vanc and zosyn- Wound cx from 05/12 with Pseudomonas aeruginosa and MRSA. From 05/14 OR prelim gram negative and staph, await final results. Per ID- discontinue zosyn and change to cefepime Plan for PICC line and IV antibiotics for 6 weeks. Patient hesitant about going to SNF for IV antibiotics. Recommend Cefepime 2g iv daily (for cr cl 23) + Daptomcyin 8mg/kg IV daily x 6 weeks with weekly CBC, creatinine, LFT, CRP and CPK 2. Type 2 diabetes mellitus with diabetic neuropathy: She has modest sensation in her foot it is greatly diminished from normal based on minimal pain with exploration at bedside Continue lantus and SSI Monitor closely for hypoglycemia 3. Chronic kidney disease, stage 4 (severe): serum creatinine 1.9 - continue to monitor 4. HTN (hypertension): Continue blood pressure medications 5. Hyperlipidemia: continue atorvastatin 6. PAD (peripheral artery disease): Continue plavix Plan: DVT prophylaxis- sq heparin Discussed with patient Discussed with care team members Cod status- Full PDMP PDMP Reviewed: Not Reviewed Attestations 2 Medical Necessity Statement*: Requires further hospitalization for management of osteomyelitis with abscess requiring OR debridement, IV antibiotics as an outpatient while safe discharge planning is sought Coding Level of Care Code 60612 Diagnoses Diabetic foot ulcer with osteomyelitis E11.621; E11.69; L97.509; M86.9 Type 2 diabetes mellitus with diabetic neuropathy E11.40 Chronic kidney disease, stage 4 (severe) N18.4 HTN (hypertension) I10 Hyperlipidemia E78.5 PAD (peripheral artery disease) I73.9
--- NOTE | 2025-05-17 19:59 | P.PN_ITS ---
Subjective 2 Subjective: Patient seen at bedside resting comfortably. Plan to return to OR tomorrow Vitals/I&O/Wt Last Vital Signs Temp 98.2 F 05/17/25 16:00 Pulse 66 05/17/25 16:00 Resp 18 05/17/25 16:00 BP 148/66 05/17/25 16:00 Pulse Ox 97 05/17/25 16:00 O2 Del Method Room Air 05/17/25 16:00 O2 Flow Rate 10 05/14/25 12:54 05/17/25 05/17/25 05/17/25 06:59 14:59 22:59 Intake Total 120 / 1020 720 / 720 360 / 1080 Output Total 500 / 500 500 / 1000 Balance 120 / 1020 220 / 220 -140 / 80 Weight last 48 hrs Weight 163 lb 1 oz Weight 172 lb Physical Exam 2 Narrative: BELOW IS A FOCUSED LOWER EXTREMITY EXAM GENERAL: A&O x 3 VASCULAR: DP/PT pulses diminished with cap refill intact to distal digits sluggish. Edema to right hallux. DERMATOLOGICAL: Right foot surgical dressing clean, dry, intact. No strikethrough noted. MUSCULOSKELETAL: Status post right hallux amputation NEUROLOGICAL: Neurological sensation to the affected foot and ankle is diminished IMAGING: Three-view x-rays of right foot obtained in the emergency department were independently turbid by me. These show erosive changes of plantar aspect of distal phalanx with fragmentation and 2 small radiolucencies consistent with subcutaneous emphysema. Data 05/17/25 03:30 05/17/25 03:30 Micro: Microbiology 05/12/25 17:54 Blood Culture - Final Blood NO GROWTH AFTER 5 DAYS 05/14/25 12:12 Gram Stain - Final Toe - #1 Anaerobic Culture - Preliminary Abscess Culture - Final Methicillin Resis Staph Aureus Morganella morganii 05/12/25 20:11 Anaerobic Culture - Preliminary Toe - #1 Bacteroides uniformis 05/12/25 20:11 Gram Stain - Final Toe - Toe Wound Culture - Final Methicillin Resis Staph Aureus Pseudomonas aeruginosa Morganella morganii A&P Assessment and plan 1. Osteomyelitis: 2. Type 2 diabetes mellitus with diabetic neuropathy: 3. PAD (peripheral artery disease): 4. Diabetic foot ulcer: Plan: -Right hallux wound with osteomyelitis -Labs and vitals reviewed - Leukocytosis improving - VSS -Cultures aerobic and anaerobic cultures obtained in the emergency department upon debridement showing multiple gram-negative rods and coag positive staph -Abx Vanco/Zosyn -Diet: NPO - Plan to return to the OR tomorrow 05/18/2025 for delayed primary closure. I discussed with patient that she will need 6 weeks of IV antibiotics and PICC line placement due to extensiveness of the infection. -Pain Mgmt: Per primary team -Weight bearing: As tolerated for transfers only to right foot -Dressings: Saline wet-to-dry. -Continue current Abx therapy until ID and Sensitivity results -Trend labs -Discharge plan: To be determined -Podiatry will continue to round on patient daily and provide recommendations PDMP PDMP Reviewed: Not Reviewed Attestations 2 Medical Necessity Statement*: see hospitalist note Coding Level of Care Code Acute Code for [facility] Fwd Diagnoses Osteomyelitis M86.9 Type 2 diabetes mellitus with diabetic neuropathy E11.40 PAD (peripheral artery disease) I73.9 Diabetic foot ulcer E11.621; L97.509
[2025-05-17] MEDS: insulin glargine 100 units/1 mL 10 UNIT SUBCUT (21:06)
[2025-05-18] VITALS (15 sets, daily range): BP systolic 101–157; BP diastolic 52–75; PULSE 55–74; RESP 15–19; TEMP 36.2–37.2; O2SAT 93–98
[2025-05-18] MEDS: cefepime 1,000 mg SDV 1000 MG IVP (04:10)
--- NOTE | 2025-05-18 06:13 | P.PN_ITS ---
Subjective 2 Subjective: ID progress note Updated cx reveiwed patient declined being seen today, wished to sleep Vitals/I&O/Wt Last Vital Signs Temp 98.9 F 05/18/25 06:00 Pulse 74 05/18/25 06:00 Resp 15 05/18/25 06:00 BP 147/68 05/18/25 06:00 Pulse Ox 98 05/18/25 06:00 O2 Del Method Room Air 05/17/25 16:00 O2 Flow Rate 10 05/14/25 12:54 05/17/25 05/17/25 05/18/25 14:59 22:59 06:59 Intake Total 720 / 720 850 / 1570 240 / 1810 Output Total 500 / 500 700 / 1200 Balance 220 / 220 150 / 370 240 / 610 Weight last 48 hrs Weight 73.936 kg Weight 73.964 kg Physical Exam 2 Narrative: Patient assessed via telehealth , declined to be seen or have a discussion today, preferring to sleep Data 05/17/25 03:30 05/17/25 03:30 Micro: Microbiology 05/12/25 20:37 Blood Culture - Final Blood NO GROWTH AFTER 5 DAYS 05/12/25 17:54 Blood Culture - Final Blood NO GROWTH AFTER 5 DAYS 05/14/25 12:12 Gram Stain - Final Toe - #1 Anaerobic Culture - Preliminary Abscess Culture - Final Methicillin Resis Staph Aureus Morganella morganii 05/12/25 20:11 Anaerobic Culture - Preliminary Toe - #1 Bacteroides uniformis Other data: NAME: Chyna Bettencourt LOC: [facility] #: [id number] AGE/SX: 69/F ROOM: 264 R E05/12/[address]: Roya Cohen MD : 1955 BED: 1 D IS: FAX #: STATUS: ADM IN TLOC: Spec #: [id number] Benjamín: 05/14/25-1211 Status: RES Req #: [id number] Recd: 05/14/25-[address]: Jaya Conner DPM Src: Toe SpDesc: #1 Ordered: Absces Cult&GS, Anaer Comments: Comment RIGHT HALLUX Procedure Result Verified Site Gram Stain Final 05/14/25-1733 Result FEW POLYMORPHONUCLEAR NEUTROPHILS RARE GRAM NEGATIVE RODS Anaerobic Culture Preliminary 05/17/25-812 NO ANAEROBES ISOLATED ON DAY 3 Anaerobic Culture Preliminary (changed) 05/15/25-1609 NO ANAEROBES ISOLATED ON DAY 1 Abscess Culture Final 05/17/25-1603 Organism 1 Methicillin Resis Staph Aureus Growth RARE Organism 2 Morganella morganii Growth RARE DAY 3 MRSA M morganii M.I.C. RX M.I.C. RX --------- ------ --------- ------ * Amikacin <=16 S * Ampicillin/Sulbactam >16/8 R * Aztreonam 16 I * Cefepime <=8 S * Ceftriaxone <=1 S * Ciprofloxacin <=1 S <=1 S * Clindamycin >4 R * Erythromycin >4 R * Gentamicin <=4 S <=2 S * Imipenem 4 R * Levofloxacin <=1 S <=2 S * Linezolid 4 S * Moxifloxacin <=0.5 S * Oxacillin >2 R * Penicillin >8 R * Rifampin <=1 S * Tetracycline <=4 S >8 R * Trimethoprim/Sulfamethoxazole <=0.5/9.5 S <=2/38 S Vancomycin 2 S * Piperacillin/Tazobactam <=16 S Daptomycin 1 S Abscess Culture Preliminary (changed) 05/16/25-1531 Organism 1 Coag positive Staphylococcus Growth RARE Organism 2 Gram Negative Rods Growth RARE DAY 2 RESULTS TO FOLLOW Abscess Culture Preliminary (changed) 05/15/25 NO GROWTH AT 18-24 HOURS NAME: Tyler Bettencourtphil Cheema [facility] #: [id number] [facility]: [facility] U #: [id number] AGE/SX: 69/F ROOM: 264 R E05/12/[address]: Roya Cohen MD : 1955 BED: 1 D IS: FAX #: STATUS: ADM IN TLOC: Spec #: [id number] Benjamín: 05/12/25 Status: RES Req #: [id number] Recd: 05/12/[address]: Luis Vargas DO Src: Toe SpDesc: #1 Ordered: Anaer Comments: Comment Aerobic and anaerobic cultures--LISDA Procedure Result Verified Site Anaerobic Culture Preliminary 05/17/25-1539 Organism 1 Bacteroides uniformis Growth HEAVY DAY 4 Anaerobic Culture Preliminary (changed) 05/15/25-1627 NO ANAEROBES ISOLATED ON DAY 2 Anaerobic Culture Preliminary (changed) 05/14/25-0856 NO ANAEROBES ISOLATED ON DAY 1 [facility] [address] [place] [id number] [address] ANT MERRITT, DOCUMENT CONTROL COORDINATOR NAME: Chyna Bettencourt [facility] #: [id number] LOC: [facility] #: [id number] AGE/SX: 69/F ROOM: [facility] R E05/12/[address]: Roya Cohen MD : 1955 BED: 1 D IS: FAX #: STATUS: ADM IN TLOC: Spec #: [id number] Benjamín: 05/12/25 Status: COMP Req #: [id number] Recd: 05/12/[address]: Jaya Conner DPM Src: Toe SpDesc: Toe Ordered: WC and GS Comments: Comment Aerobic and anaerobic cultures--LISDA Procedure Result Verified Site Gram Stain Final 05/13/25-140 Result NO WHITE BLOOD CELLS SCANT GRAM NEGATIVE RODS RARE GRAM POSITIVE COCCI IN PAIRS Wound Culture Final 05/16/25-1504 Organism 1 Methicillin Resis Staph Aureus Growth HEAVY Organism 2 Pseudomonas aeruginosa Growth HEAVY Organism 3 Morganella morganii Growth HEAVY HEAVY MIXED SUPERFICIAL ROBLES ON DAY 3 CRITICAL RESULT YES/NO: YES CRITICAL CALLED BY: JEANNIE TO AND READ BACK BY: ARUN CAMARENA NURSE TO CALL BACK DATE: 05/16/25 TIME: 1246 2ND CRITICAL RES YES/NO: YES 2ND CRITICAL CALLED BY: JEANNIE 2ND TO AND READ BACK BY: GRACIELA DATE: 05/16/25 2ND CRITICAL TIME: 1504 MRSA P aerugino M morganii M.I.C. RX M.I.C. RX M.I.C. RX --------- ------ --------- ------ --------- ------ * Amikacin <=16 S * Ampicillin/Sulbactam >16/8 R * Aztreonam <=4 S <=4 S * Cefepime <=8 S <=8 S * Ceftriaxone <=1 S * Ciprofloxacin <=1 S <=1 S <=1 S * Clindamycin >4 R * Erythromycin >4 R * Gentamicin <=4 S <=2 S * Imipenem <=1 S 4 R * Levofloxacin <=1 S <=2 S <=2 S * Linezolid 2 S * Moxifloxacin <=0.5 S * Oxacillin >2 R * Penicillin >8 R * Rifampin <=1 S * Tetracycline <=4 S <=4 S * Trimethoprim/Sulfamethoxazole <=0.5/9.5 S <=2/38 S Vancomycin 2 S * Piperacillin/Tazobactam <=16 S <=16 S Daptomycin 1 S Wound Culture Preliminary (changed) 05/15/25-1030 Organism 1 Coag positive Staphylococcus Growth HEAVY Organism 2 Gram Negative Rods Growth HEAVY Organism 3 Gram Negative Rods#2 Growth HEAVY DAY 2, RESULTS TO FOLLOW Wound Culture Preliminary (changed) 05/14/25-1611 Organism 1 Gram Negative Rods Growth HEAVY DAY 1, RESULTS TO FOLLOW A&P Assessment and plan 1. Osteomyelitis: 2. Foot abscess: 3. Tenosynovitis: 4. Type 2 diabetes mellitus with diabetic neuropathy: Plan: 69 F with DM, CKD, admitted with worsening right foot ulcer progressed to osteomyelitis, tenosynovitis and foot abscess. S/p excisional debridement at bedside on 05/12 followed by Right hallux amputation, incision bone cortex right first metatarsal on 05/15. Blood cx remain negative Op note reviewed and case discussed with podiatry, concern for proximal extension of cellulitis and tenosynovitis beyong amputation margins. CX from 05/12 with GNR thus far, will follow final cultures Anticipate that patient will likely require prolonged iv abx infusion given extent of infection Will follow with pending cx results 05/16/25 : Wound cx from 05/12 with Pseudomonas aeruginosa and MRSA. From 05/14 OR thus far GNR and coag positive staph, anticipate to be pseudomonas and MRSA. D/c ZOsyn. Changed to cefepime 1 g iv q12h (dosed for cr cl of 23). COntinue vancomycin with trough monitoring, goal 15-20. Discussed with patient discharge with total 6 weeks of iv abx given extent of infection and involvement more proximally. She is overhwelmed at the idea of iv abx use, and does not wish to go to SNF at this time. Explained options of home iv abx use vs outpatient iv abx infusion at the infusion center. She will discuss with her and give us a final decision. Should she agree to discharge with iv abx, will recommend Cefepime 2g iv daily (for cr cl 23) + Daptomcyin 8mg/kg iv daily for 6 weeks. Daptomycin chosen over vancomycin for ability for once daily infusions and less frequent monitoring interval, CKD with fluctuating kidney function. Weekly CBC, Creat, LFT, CRP and CPK while on above abx to be fexed to ID clinic for review. Will follow 05/18: All cultures have been updated now to reflect Psudomonas, MRSA and morganella morganii with susceptibility above. D/c Cefepime,c hange to Zosyn given additional recovery of bacteroides species. Patient is yet to decide whether she is okay with iv abx or not. States she does not want to go to SNF and is overwhelmed at the idea of going home with iv abx. If patient agrees to iv abx, she may be discharged with iv zosyn 13.5 g iv via continuous infusion pump and daptomycin 500mg iv daily. Picc line order cancelled pending patient decision. If she declines iv abx and electes for oral abx understanding that they may be suboptimal, can discharge with combination of oral Ciprofloxacin 500mg BID + Doxycycline 100mg BID + metronidazole 500mg po BID. F/up in ID clinic on Jun 18, 2024. PDMP PDMP Reviewed: Not Reviewed Attestations 2 Medical Necessity Statement*: per admitting Coding Level of Care Code Acute Code for Chg Fwd Diagnoses Osteomyelitis M86.9 Foot abscess L02.619 Tenosynovitis M65.90 Type 2 diabetes mellitus with diabetic neuropathy E11.40
[2025-05-18] MEDS: piperacillin-tazobactam 3.375 GM in sodium chloride 0.9% (plus) 50 ML IV ×2 (06:36→14:48)
[2025-05-18 10:06] LABS: Hematocrit 32.6 % (36-47); Hemoglobin 10.20 g/dL (11.27-16.99); Mean Corpuscular HGB Conc 31.3 g/dL (30-55); Mean Corpuscular Hemoglobin 29.1 pg (27-33); Mean Corpuscular Volume 92.9 fl (85-98); Nucleated Red Blood Cells % 0 %; Platelet Count 450 10^3/cmm (157-399); Red Blood Count 3.51 10^6/uL (3.85-5.65); White Blood Count 9.78 10^3/uL (3.29-11.43)
[2025-05-18 10:27] LABS: Alanine Aminotransferase < 5 U/L (0-33); Albumin Level 3.3 g/dL (3.5-5.2); Alkaline Phosphatase 218 U/L (35-105); Anion Gap 15.3 (5-19); Aspartate Amino Transferase 11 U/L (0-32); Blood Urea Nitrogen 21 mg/dL (8-23); Calcium 9.7 mg/dL (8.5-10.5); Carbon Dioxide 23 mmol/L (22-29); Chloride 104 mmol/L (98-107); Globulin 3.6 g/dL (1.3-4.6); Glucose 99 mg/dL (65-115); Osmolality Calculated 289 mOsm/kg (285-295); Potassium 4.3 mmol/L (3.5-5.1); Sodium 138 mmol/L (136-145); Total Protein 6.9 g/dL (6.6-8.7)
--- NOTE | 2025-05-18 10:35 | PC.SOCIAL ---
IMM UPdate pg 2 of IMM updated and reviewed w/ patient. Copy provided and copy dated, initialed and placed in chart.
--- NOTE | 2025-05-18 11:39 | ANES.PREANE2 ---
Pre-Anesthetic Assessment Height/Weight: Height 5 ft 1 in Weight 163 lb Temp Pulse Resp BP Pulse Ox O2 Del Method O2 Flow Rate 98.1 F 64 18 149/54 93 Room Air 10 05/18/25 11:37 05/18/25 11:37 05/18/25 11:37 05/18/25 11:37 05/18/25 11:37 05/18/25 11:37 05/14/25 12:54 Preop Diagnosis: Foot osteomyelitis Operation Date: 05/14/25 12:00 Proposed Procedures p Right partial first Ray Resection(Right) - Jaya Conner DPM Operation Date: 05/18/25 12:30 Proposed Procedures p Delayed Wound Closure(Right) - Jaya Conner DPM Was Beta Joanne taken within 24 hours: N/A Was Clonidine taken within 24 hours: N/A Last intake: Intake Last Liquid Date 05/13/25 Last Liquid Time 22:00 Last Solid Date 05/13/25 Last Solid Time 22:00 Social No alcohol and No tobacco Exam alert, oriented x 3, clear to auscultation bilaterally and regular rate & rhythm Airway Submandibular: within normal limits Cervical ROM: within normal limits Mallampati: Class II Comments: Comments: Edentulous Anesthetic Plan ASA status: 3 Anesthesia: MAC Other: No prior issues with anesthesia, very well-known to our service NPO since yesterday evening Patient initially admitted 05/12/2025 for osteomyelitis History of hypertension on amlodipine labetalol and spironolactone?HCTZ CKD stage IV, no dialysis IDDM, preop BS 99 Labs reviewed from today, hemoglobin 10.2. Electrolytes stable Plan for MAC anesthesia with local view surgeon Medications/Allergies Home Medications ?Medication ?Instructions ?Recorded ?Confirmed ?Last Taken ?Type 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,receiver stocker,cont #1 ea 08/08/22 05/13/25 Unknown Rx (Dexcom [employer]) insulin regular human 100 unit/mL 10 unit SUBCUT DAILY 12/21/23 05/13/25 05/12/25 History injection solution (Novolin R Regular U-100 Insulin) allopurinol 100 mg tablet 100 mg PO DAILY #90 tabs 02/11/24 05/13/25 05/12/25 Rx amlodipine 10 mg tablet 10 mg PO DAILY 90 days #90 tabs 02/11/24 05/13/25 05/12/25 Rx atorvastatin 40 mg tablet 40 mg PO DAILY 90 days #90 tabs 02/11/24 05/13/25 05/12/25 Rx clopidogrel 75 mg tablet 75 mg PO DAILY 90 days #90 tabs 02/11/24 05/13/25 05/12/25 Rx famotidine 40 mg tablet 40 mg PO BID 90 days #180 tabs 02/11/24 05/13/25 05/12/25 Rx furosemide 40 mg tablet 40 mg PO DAILY 90 days #90 tabs 02/11/24 05/13/25 Unknown Rx labetalol 100 mg tablet 100 mg PO DAILY 90 days #90 tabs 02/11/24 05/13/25 05/12/25 Rx loratadine 10 mg tablet 10 mg PO DAILY 90 days #90 tabs 02/11/24 05/13/25 05/12/25 Rx ondansetron HCl 4 mg tablet 4 mg PO Q6H PRN nausea and 02/11/24 05/13/25 Unknown Rx vomiting #90 tabs pantoprazole 40 mg tablet,delayed 40 mg PO BID 90 days #180 tabs 02/11/24 05/13/25 05/12/25 Rx release (Protonix) tizanidine 4 mg tablet 4 mg PO .QHS PRN muscle spasticity 02/11/24 05/13/25 Unknown Rx 90 days #90 tabs amoxicillin 875 mg-potassium 1 tab PO BID 05/13/25 05/13/25 05/12/25 History clavulanate 125 mg tablet hydrocodone 5 mg-acetaminophen 325 1 tab PO Q8H PRN Pain 05/13/25 05/13/25 Unknown History mg tablet insulin NPH isoph U-100 human 100 10 unit SUBCUT .@NOON 05/13/25 05/13/25 05/12/25 History unit/mL subcutaneous suspension (Humulin N NPH U-100 Insulin (isophane susp)) spironolactone 25 1 tab PO DAILY 05/13/25 05/13/25 05/12/25 History mg-hydrochlorothiazide 25 mg tablet Allergies Allergy/AdvReac Type Severity Reaction Status Date / Time codeine Allergy ADR-Vomitin Verified 02/19/24 13:07 g Iodinated Contrast Media Allergy ALGY-Bliste Verified 02/19/24 13:07 r Current Medications Generic Name Dose Route Start Last Admin Trade Name Freq PRN Reason Stop Dose Admin Allopurinol 100 mg 05/13/25 05:00 05/18/25 04:21 Allopurinol 100 Mg Tablet PO 100 mg DAILY CRYSTAL Administration Amlodipine Besylate 10 mg 05/13/25 05:00 05/18/25 04:21 Amlodipine 10 Mg Tablet PO 10 mg DAILY CRYSTAL Administration Atorvastatin Calcium 40 mg 05/13/25 05:00 05/18/25 04:21 Atorvastatin 40 Mg Tablet PO 40 mg DAILY CRYSTAL Administration Clopidogrel Bisulfate 75 mg 05/13/25 05:00 05/18/25 04:22 Clopidogrel 75 Mg Tablet PO 75 mg DAILY CRYSTAL Administration Famotidine 40 mg 05/13/25 05:00 05/18/25 04:21 Famotidine 20 Mg Tablet PO 40 mg DAILY CRYSTAL Administration Heparin Sodium (Porcine) 5,000 unit 05/12/25 20:15 05/18/25 09:33 Heparin 5,000 Unit/Ml Inj 1 Ml SUBCUT Not Given Q12H [facility] Piperacillin Sod/Tazobactam 50 mls @ 12.5 mls/hr 05/18/25 06:30 05/18/25 11:15 Sod 3.375 gm/ Sodium Chloride IV Infused Q8H [facility] Infusion Insulin Glargine 10 unit 05/12/25 21:00 05/17/25 21:06 Insulin Glargine 100 Units/1 Ml SUBCUT 10 unit BEDTIME CRYSTAL Administration Insulin Human Lispro 0 unit 05/12/25 21:00 05/18/25 11:28 Insulin Lispro 100 Unit/1 Ml SUBCUT Not Given WM&BEDTIME [facility] Protocol Labetalol HCl 100 mg 05/13/25 05:00 05/18/25 04:21 Labetalol 200 Mg Tablet PO 100 mg DAILY CRYSTAL Administration Loratadine 10 mg 05/13/25 05:00 05/18/25 04:22 Loratadine 10 Mg Tablet PO 10 mg DAILY [facility] Administration Magnesium Oxide 400 mg 05/13/25 05:00 05/18/25 04:21 Magnesium Oxide 400 Mg Tablet PO 400 mg BID CRYSTAL Administration Ondansetron HCl 4 mg 05/12/25 21:58 05/17/25 04:43 Ondansetron 2 Mg/Ml Sdv 2 Ml IVP 4 mg Q6H PRN Administration NAUSEA AND VOMITING Oxycodone HCl 5 mg 05/12/25 20:08 05/17/25 19:46 Oxycodone 5 Mg Ir Tab/Cap PO 5 mg Q6H PRN Administration SEVERE PAIN PFSH Anesthesia Medical History (Updated 05/18/25 @ 08:20 by Luis Vargas DO) Hyperlipidemia Hypertension HTN (hypertension) Hip fracture Type II diabetes mellitus, well controlled Diabetes Chronic kidney disease, stage 4 (severe) Tibial plateau fracture, right Closed fracture of tibial plateau Fall Femoral neck fracture Myocardial infarction UTI (urinary tract infection) CAD (coronary artery disease) Surgical History History of knee surgery History of tubal ligation History of cholecystectomy Social History Smoking and tobacco/nicotine status: former use of tobacco/nicotine Quit status (tobacco/nicotine): has quit using Year quit tobacco: 1997 Alcohol intake: never Substance/Drug Use: never Additional social history: She wants DNR status as discussed with Jim Yadav MD and her on 05/12/2025 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 Anesthesia 05/18/25 09:59 05/18/25 09:59 Short CBC 05/17/25 05/18/25 Range/Units 03:30 09:59 WBC 12.37 H 9.78 (3.29-11.43) 10^3/uL Hgb 9.40 L 10.20 L (11.27-16.99) g/dL Hct 29.9 L 32.6 L (36-47) % MCV 92.9 92.9 (85-98) fl Plt Count 342 450 H (157-399) 10^3/cmm Neut % (Auto) 72.3 76.0 % Neut # (Auto) 8.94 H 7.44 (1.8-7.7) 10^3/uL BMP 05/17/25 05/18/25 03:30 09:59 Sodium 138 138 Potassium 4.3 4.3 Chloride 104 104 Carbon Dioxide 21 L 23 BUN 24 H 21 Creatinine 1.9 H 1.8 H Glucose 96 99 Calcium 9.1 9.7 Cardiac Enzymes 05/17/25 05/17/25 Range/Units 03:30 03:30 Creatine Kinase 27 Cancelled (26-192) U/L Liver Function 05/17/25 05/18/25 Range/Units 03:30 09:59 Total Bilirubin 0.3 0.3 (0.15-1.2) mg/dL AST 13 11 (0-32) U/L ALT 7 < 5 (0-33) U/L Alkaline Phosphatase 262 H 218 H (35-105) U/L Albumin 3.2 L 3.3 L (3.5-5.2) g/dL Coags 05/17/25 05/17/25 03:30 03:30 C-Reactive Protein 11.4 H Cancelled Microbiology 05/12/25 20:37 Blood Culture - Final Blood NO GROWTH AFTER 5 DAYS 05/12/25 17:54 Blood Culture - Final Blood NO GROWTH AFTER 5 DAYS 05/14/25 12:12 Gram Stain - Final Toe - #1 Anaerobic Culture - Preliminary Abscess Culture - Final Methicillin Resis Staph Aureus Morganella morganii 05/12/25 20:11 Anaerobic Culture - Preliminary Toe - #1 Bacteroides uniformis
--- NOTE | 2025-05-18 12:33 | P.HPUD_ITS ---
Surgery/Procedure H&P Update DATE OF PROCEDURE: May 18, 2025 DATE H&P PERFORMED: 05/12/25 H&P UPDATE INFORMATION: I have reviewed H&P completed within last 30 days, I have examined patient prior to procedure, No changes to prior documentation, H&P is in [facility] EMR on date indicated and Risks and benefits of the procedure reviewed PREOP DIAGNOSIS: Foot osteomyelitis PLANNED PROCEDURE: Operation Date: 05/14/25 12:00 Proposed Procedures p Right partial first Ray Resection(Right) - Jaya Conner DPM Operation Date: 05/18/25 12:30 Proposed Procedures p Delayed Wound Closure(Right) - Jaya Conner DPM
[2025-05-18] MEDS: BUPivacaine 0.5% INJ 30 mL INJECTION (13:18)
--- NOTE | 2025-05-18 13:37 | P.BOP_ITS ---
Date of procedure: 05/18/2025 Surgeon name: Dr. Jaya Conner D.P.M. Hospital Supervisor(s) name(s): Lindsay Procedure(s) performed: Right foot delayed primary closure Description of findings: Necrotic devitalized tissue excised Estimated blood loss: 15 cc Tourniquet time: 22 minutes Specimen(s) removed: None Post-operative diagnosis: Right foot abscess
--- NOTE | 2025-05-18 14:14 | ANE.PACU2 ---
Inpatient post-anesthesia follow up: Airway intact: Yes Vital signs: Temperature 97.1 F Pulse Rate 61 Respiratory Rate 18 Blood Pressure 135/64 Pulse Oximetry 94 Oxygen Delivery Me thod Room Air Oxygen Flow Rate 8 Fraction of Inspir ed Oxygen Hydration adequate: Yes Nausea and vomiting: No Pain level: 1 Mental status: Baseline
--- NOTE | 2025-05-18 17:16 | PM.OP ---
Operative Report Date of procedure: May 18, 2025 Surgeon: Jaya Conner DPM Procedure: Date of procedure: 05/18/2025 Pre-op diagnosis: Right foot abscess Post-op diagnosis: Same Post-op findings: No further purulence or abscess formation. Procedure done: Delayed primary closure right foot CPT 48445 Implants: None Specimens removed: None Surgeon: Dr. Jaya Conner DPM Electronic Game Developer: Lindsay Estimated blood loss: 15 cc Tourniquet time: 22 minutes Complications: None Patient is a 69-year-old female who is status post hallux amputation with incision bone cortex. The wound was left open due to the extensive infection to allow time for demarcation. Patient return to the operating room today for further debridement of necrotic tissue irrigation washout and delayed primary closure. The patient has been NPO since midnight. The history has been reviewed and the history and physical is current. The signed consent was confirmed and placed in the patient chart. Patient imaging has been reviewed and is consistent with the diagnosis. Under mild sedation, the patient was brought into the operating room and placed on the table in the supine position. Patient is receiving antibiotics around the clock on the floor, Therefore, additional antibiotic prophylaxix was not administered. MAC sedation was then performed by the anesthesiateam. A pneumatic tourniquet was then placed about the right ankle. The operative extremity was then prepped and draped in the usual fashion. After prep, the following procedure was then performed. Attention was directed to the right foot where the surgical site was evaluated. Wound edges had slight necrosis. This was removed using a #15 blade and pickups. No further purulence was visualized. Wound was noted to track towards the plantar medial longitudinal arch. However, negative probe to bone in this area. Tissues appeared healthy and viable. After copious irrigation with sterile saline attention was directed to closure. The incision was closed using combination of 2-0 and 3-0 Prolene. Hemostasis was achieved via electrocautery. The incision site was then dressed with Xeroform, 4 x 4 gauze, Kerlix, Chester bandage. The patient tolerated the procedure and anesthesia well and without complication. The patient was transported from the operating room to the recovery room with vital signs stable and vascular status intact to all digits of the right foot. Thepatient was instructed to remain minimal weightbearing to the operative extremity, to keep surgical dressing clean, dry and intact. The patient will be transferred back to the floor once anesthesia criteria is met. I will continue to round on and follow the patient in the inpatientsetting and provide recommendations to stabilize the patient for discharge.
[2025-05-18] MEDS: insulin glargine 100 units/1 mL 10 UNIT SUBCUT (21:53)
[2025-05-18] MEDS: vancomycin 500 MG in sodium chloride 0.9% (plus) 100 ML 200 MG IV (21:54)
[2025-05-18] MEDS: heparin 5,000 unit/mL INJ 1 mL 5000 UNIT SUBCUT (21:54)
--- NOTE | 2025-05-18 22:02 | P.PN_ITS ---
Subjective 2 Subjective: patient having right foot abscess and delayed closure podiatry onboard patient refused to see ID in the morning, therefore further complaince to antibiotics is questioanable? Medications: Reviewed: Yes Vitals/I&O/Wt Last Vital Signs Temp 97.9 F 05/18/25 20:00 Pulse 66 05/18/25 20:00 Resp 16 05/18/25 20:00 BP 111/58 05/18/25 20:00 Pulse Ox 94 05/18/25 20:00 O2 Del Method Room Air 05/18/25 20:00 O2 Flow Rate 8 05/18/25 14:00 05/18/25 05/18/25 05/18/25 06:59 14:59 22:59 Intake Total 240 / 1810 50 / 50 290 / 340 Output Total 300 / 315 Balance 240 / 610 35 / 35 - Weight last 48 hrs Weight 73.936 kg Weight 73.964 kg Physical Exam 2 Narrative: General: Alert and oriented, and was seen before leaving to the OR, pleasant looking lady, HEENT: Normocephalic, atraumatic, grossly unremarkable exam Cardio: normal rate rhythm, normal S1-S2 without any murmurs, rubs, or gallops and JVD normal Respiratory: normal vascular breathing on auscultation without any wheezes, stridor, rhonchi GI: Abdomen soft, nontender, nondistended, normoactive bowel sounds present all 4 quadrants, Neuro: intact cranial nerves motor and sensory and cerebellar/coordination function without any focal neurological deficit Behavior: Appropriate and cooperative Extremities: Adequate palpable pulses, having right foot dressing, no signs of cellulitis or skin changes around the edges of the dressing Data 05/18/25 09:59 05/18/25 09:59 Micro: Microbiology 05/14/25 12:12 Gram Stain - Final Toe - #1 Anaerobic Culture - Preliminary Abscess Culture - Final Methicillin Resis Staph Aureus Morganella morganii 05/12/25 20:11 Anaerobic Culture - Preliminary Toe - #1 Bacteroides uniformis 05/12/25 20:37 Blood Culture - Final Blood NO GROWTH AFTER 5 DAYS 05/12/25 17:54 Blood Culture - Final Blood NO GROWTH AFTER 5 DAYS A&P Assessment and plan 1. Osteomyelitis: As per the ID recommendations: All cultures have been updated now to reflect Psudomonas, MRSA and morganella morganii with susceptibility above. D/c Cefepime,c hange to Zosyn given additional recovery of bacteroides species. Patient is yet to decide whether she is okay with iv abx or not. States she does not want to go to SNF and is overwhelmed at the idea of going home with iv abx. If patient agrees to iv abx, she may be discharged with iv zosyn 13.5 g iv via continuous infusion pump and daptomycin 500mg iv daily. Picc line order cancelled pending patient decision. If she declines iv abx and electes for oral abx understanding that they may be suboptimal, can discharge with combination of oral Ciprofloxacin 500mg BID + Doxycycline 100mg BID + metronidazole 500mg po BID. F/up in ID clinic on Jun 18, 2024. FU with podiatry 2. Foot abscess: as mentioened above FU with podiatry 3. Tenosynovitis: cont analgesia as per pain scale 4. Type 2 diabetes mellitus with diabetic neuropathy: Continue lantus 10 units and SSI Monitor closely for hypoglycemia and maintain normoglycemia monitor glucose 5. Hyperlipidemia: cont atorvastatin FU with PCP at the time of discharge 6. Hypertension: cont on amlodipine 10mg daily monitor bP 7. PAD (peripheral artery disease): Cont clopidogrel FU with vascular/cardio at the time of discharge Plan: PDMP PDMP Reviewed: Not Reviewed Attestations 2 Medical Necessity Statement*: Patient will stay overnight for further management of her right foot infection/abscess requiring surgical intervention with podiatry and tailoring of antibiotics according to her condition Time Spent in Patient Care: 16 - 35 minutes (>than 50% of time sp ent in counselling and/or direct pt care on unit) . Other Attestations: Patient condition has been discussed at length with the patient/family, I have independently reviewed the chart labs imaging/diagnostics/EKG. the goals of care and code status with the patient/family/NOK/legal passenger representative, and documented accordingly. I have reconciled the medications after confirmation/comorbidities/current clinical condition. The management has been done according to the current clinical condition with respect to patient goals of care and based on recommendations/guidelines. The patient/family has been informed about the current condition and further plan of care. Agreed with the plan of care and understood without any language barrier. Every effort was made to ensure accuracy of rim roller operator. Any obvious errors or omissions should be clarified with the author of the document. Coding Level of Care Code 18445 Diagnoses Osteomyelitis M86.9 Foot abscess L02.619 Tenosynovitis M65.90 Type 2 diabetes mellitus with diabetic neuropathy E11.40 Hyperlipidemia E78.5 Hypertension I10 PAD (peripheral artery disease) I73.9
[2025-05-19] MEDS: piperacillin-tazobactam 3.375 GM in sodium chloride 0.9% (plus) 50 ML IV ×2 (01:00→05:48)
[2025-05-19 04:00] VITALS: BP 128/68; PULSE 74; RESP 16; TEMP 36.6; O2SAT 94
[2025-05-19 07:26] VITALS: BP 157/63; PULSE 71; RESP 18; TEMP 37.1; O2SAT 93
[2025-05-19 07:54] LABS: Hematocrit 28.4 % (36-47); Hemoglobin 9.10 g/dL (11.27-16.99); Mean Corpuscular HGB Conc 32.0 g/dL (30-55); Mean Corpuscular Hemoglobin 29.0 pg (27-33); Mean Corpuscular Volume 90.4 fl (85-98); Nucleated Red Blood Cells % 0 %; Platelet Count 402 10^3/cmm (157-399); Red Blood Count 3.14 10^6/uL (3.85-5.65); White Blood Count 14.02 10^3/uL (3.29-11.43)
[2025-05-19 08:15] LABS: Alanine Aminotransferase < 5 U/L (0-33); Albumin Level 3.2 g/dL (3.5-5.2); Alkaline Phosphatase 179 U/L (35-105); Anion Gap 15.4 (5-19); Aspartate Amino Transferase 10 U/L (0-32); Blood Urea Nitrogen 21 mg/dL (8-23); Calcium 9.1 mg/dL (8.5-10.5); Carbon Dioxide 22 mmol/L (22-29); Chloride 104 mmol/L (98-107); Globulin 2.8 g/dL (1.3-4.6); Glucose 110 mg/dL (65-115); Osmolality Calculated 288 mOsm/kg (285-295); Potassium 4.4 mmol/L (3.5-5.1); Sodium 137 mmol/L (136-145); Total Protein 6.0 g/dL (6.6-8.7)
[2025-05-19] MEDS: ondansetron 2 mg/ML SDV 2 mL 4 MG IVP (08:22)
[2025-05-19] MEDS: heparin 5,000 unit/mL INJ 1 mL 5000 UNIT SUBCUT (08:24)
[2025-05-19 11:51] VITALS: BP 146/76; PULSE 67; RESP 18; TEMP 37; O2SAT 93
--- NOTE | 2025-05-19 12:02 | P.DS_ITS ---
Discharge Providers Date of Admission: 05/12/25 19:19 Date of Discharge: May 19, 2025 Attending Provider at Admission: Jim Yadav MD Attending Provider at Discharge: Elaina Berman MD Primary Care Provider: Preeti Silva NP Diagnoses at Discharge Discharge Diagnosis 1. Osteomyelitis: 2. Foot abscess: 3. Tenosynovitis: 4. Type 2 diabetes mellitus with diabetic neuropathy: 5. Hyperlipidemia: 6. Hypertension: 7. PAD (peripheral artery disease): Reason for Visit Reason for Visit: right foot big toe infection Brief History: As per the admitting physician note. Chyna Bettencourt is a 69 year old female accompanied by her Cristobal. She is in ED room 13. Patient states she had a blister on her foot starting around February and this busted when she stepped wrong in April. Is not healed since then and has been draining inside her shoe. She was seen by Dr. Vargas who was consulted Dr. Hernandez the construction equipment mechanic and referred patient to ct for admission. Patient received vancomycin in the emergency department. Plain films show some cortical disruption but not definite osteomyelitis. Patient is seen in conjunction with Dr. Hernandez who explored the wound down to bone and has diagnosed osteomyelitis clinically. He has requested MRI with anticipated surgery on . Patient has chronic renal insufficiency. BUN 54 creatinine 3.5. She states she can feel her foot and that it is painful. Past surgical history appendectomy cholecystectomy left middle toe amputation by Dr. Beltrán in 2019 right hip ORIF 09/09/2023 Dr. Fabian Right hip bipolar arthroplasty 01/11/[address] Fabian Hospital Course Hospital Course The patient was seen during her stay by the construction equipment mechanic and infectious disease specialist.The patient underwent right partial first ray resection and delayed wound closure as per the brief operative notes. The patient hospital course was uncomplicated She was kept on IV antibiotics initially with Zosyn and vancomycin during her hospital stay and later tailored according to the infectious disease specialist recommendations. She was later on switched to cefepime and vancomycin with anticipation of Pseudomonas and MRSA. It was initially planned to discharge her with an antibiotics to be given as infusion in SNF however the patient was reluctant to go to SNF with PICC line and IV antibiotics and had some concerns therefore the patient after thorough discussion and multiple counseling done by the infectious disease doctor and the internal medicine physician did not preferred IV antibiotics and therefore as per patient wishes discharged on oral antibiotics with combination of ciprofloxacin and doxycycline and metronidazole for total of 4 weeks and to follow-up with ID clinic on Jun 18 2024. Although the oral antibiotics will have suboptimal results based on extent of her infection. Patient vitals, labs and diagnostics were reviewed independently and personally and adequate management plan made. Medications were reconciled after confirmation and according to patient comorbidities and appropriate follow-ups and referrals were provided at the time of discharge. Patient condition has been discussed at length with the patient/family, I have independently reviewed the chart labs imaging/diagnostics/EKG. the goals of care and code status with the patient/family/NOK/legal community service representative, and documented accordingly. The management has been done according to the current clinical condition with respect to patient goals of care and based on recommendations/guidelines. The patient/family has been informed about the current condition and further plan of care. Agreed with the plan of care and understood without any language barrier. Every effort was made to ensure accuracy of carpet installation specialist. Any obvious errors or omissions should be clarified with the author of the document. Physical Exam Narrative: General: Alert and oriented, and was seen before leaving to the OR, pleasant looking lady, HEENT: Normocephalic, atraumatic, grossly unremarkable exam Cardio: normal rate rhythm, normal S1-S2 without any murmurs, rubs, or gallops and JVD normal Respiratory: normal vascular breathing on auscultation without any wheezes, stridor, rhonchi GI: Abdomen soft, nontender, nondistended, normoactive bowel sounds present all 4 quadrants, Neuro: intact cranial nerves motor and sensory and cerebellar/coordination function without any focal neurological deficit Behavior: Appropriate and cooperative Extremities: Adequate palpable pulses, having right foot dressing, no signs of cellulitis or skin changes around the edges of the dressing Discharge Data Studies Completed and Pending Completed Studies During Hospitalization Category Date Time Status XR foot RT min 3V* [id number] Stat Exams 05/12/25 15:35 Completed MR foot RT wo con* [id number] Stat MRI 05/13/25 08:00 Completed Pending at discharge Category Date Time Status Abscess Culture and Gram Stain Routine Lab 05/14/25 12:12 Results Anaerobic Culture Routine Lab 05/12/25 20:11 Results Anaerobic Culture Routine Lab 05/14/25 12:12 Results Pathology: Surgical [PTH] Routine Pth 05/14/25 12:34 Received Radiology Impressions Foot X-Ray 05/12/25 15:35 IMPRESSION: Forefoot subluxations. No acute bone or joint abnormality identified. Foot MRI 05/13/25 08:00 IMPRESSION: 1. Soft tissue ulcer at the medial distal aspect of the great toe, series 801, image 17, extending to the medial inferior aspect of the base of the distal phalanx of the great toe. 2. Findings of osteomyelitis of the proximal and distal phalanx bones of the great toe. 3. Fluid collection within the subcutaneous soft tissue of the plantar aspect of the foot underlying the 1st metatarsal bone and medial cuneiform, extending 7.1 cm in length, 3.9 cm in transverse dimension and 0.9 cm in craniocaudal dimension, series 1101 image 8 and series 601, image 16. Infected fluid is not excluded. 4. Tendinopathy and tenosynovitis of the flexor digitorum longus tendon at the level of the 1st metatarsal mid diaphysis, series 1101, image 7. This is adjacent to the previously described plantar fluid collection and infectious tenosynovitis cannot be excluded. Laboratory Results WBC 14.02 10^3/uL (3.29-11.43) H 05/19/25 07:33 RBC 3.14 10^6/uL (3.85-5.65) L 05/19/25 07:33 Hgb 9.10 g/dL (11.27-16.99) L 05/19/25 07:33 Hct 28.4 % (36-47) L 05/19/25 07:33 MCV 90.4 fl (85-98) 05/19/25 07:33 MCH 29.0 pg (27-33) 05/19/25 07:33 MCHC 32.0 g/dL (30-55) 05/19/25 07:33 RDW 15.0 % (12.1-15.1) 05/19/25 07:33 Plt Count 402 10^3/cmm (157-399) H 05/19/25 07:33 MPV 10.5 fL (7.4-10.4) H 05/19/25 07:33 Neut % (Auto) 82.8 % 05/19/25 07:33 Lymph % (Auto) 6.9 % 05/19/25 07:33 Rains % (Auto) 7.5 % 05/19/25 07:33 Eos % (Auto) 1.4 % 05/19/25 07:33 Baso % (Auto) 0.8 % 05/19/25 07:33 Neut # (Auto) 11.60 10^3/uL (1.8-7.7) H 05/19/25 07:33 Lymph # (Auto) 1.0 10^3/uL (0.8-4.8) 05/19/25 07:33 Rains # (Auto) 1.1 10^3/uL (0.2-0.9) H 05/19/25 07:33 Eos # (Auto) 0.2 10^3/uL (0.0-0.8) 05/19/25 07:33 Baso # (Auto) 0.1 10^3/uL (0.0-0.1) 05/19/25 07:33 Nucleated RBC % (auto) 0 % 05/19/25 07:33 Nucleated RBCs # 0.0 /100WBC 05/19/25 07:33 ESR 53 mm/hr (0-15) H 05/12/25 17:54 Sodium 137 mmol/L (136-145) 05/19/25 07:33 Potassium 4.4 mmol/L (3.5-5.1) 05/19/25 07:33 Chloride 104 mmol/L (98-107) 05/19/25 07:33 Carbon Dioxide 22 mmol/L (22-29) 05/19/25 07:33 Anion Gap 15.4 (5-19) 05/19/25 07:33 BUN 21 mg/dL (8-23) 05/19/25 07:33 Creatinine 1.7 mg/dL (0.5-0.9) H 05/19/25 07:33 GFR Calculation 30.0 mL/min (90-130) L 05/19/25 07:33 Glucose 110 mg/dL (65-115) 05/19/25 07:33 POC Glucose 123 mg/dL (70-110) H 05/19/25 11:31 Estimat Average Glucose 183 05/12/25 17:54 Hemoglobin A1c 8.0 % (4.0-6.0) H 05/12/25 17:54 Calculated Osmolality 288 mOsm/kg (285-295) 05/19/25 07:33 Lactic Acid 1.5 mmol/L (0.5-2.2) 05/12/25 17:54 Calcium 9.1 mg/dL (8.5-10.5) 05/19/25 07:33 Phosphorus 2.8 mg/dL (2.5-4.5) 05/12/25 17:54 Magnesium 1.7 mg/dL (1.7-2.3) 05/16/25 04:34 Iron 31 ug/dL (37-145) L 05/13/25 05:17 TIBC 179 mcg/dl 05/13/25 05:17 % Saturation 17.3 % (20-50) L 05/13/25 05:17 Unsat Iron Binding 148 ug/dL (112-347) 05/13/25 05:17 Total Bilirubin 0.4 mg/dL (0.15-1.2) 05/19/25 07:33 AST 10 U/L (0-32) 05/19/25 07:33 ALT < 5 U/L (0-33) 05/19/25 07:33 Alkaline Phosphatase 179 U/L (35-105) H 05/19/25 07:33 Creatine Kinase 27 U/L (26-192) 05/17/25 03:30 Creatine Kinase Cancelled 05/17/25 03:30 C-Reactive Protein 11.4 mg/L (0.0-4.9) H 05/17/25 03:30 C-Reactive Protein Cancelled 05/17/25 03:30 Total Protein 6.0 g/dL (6.6-8.7) L 05/19/25 07:33 Albumin 3.2 g/dL (3.5-5.2) L 05/19/25 07:33 Globulin 2.8 g/dL (1.3-4.6) 05/19/25 07:33 Vitamin B12 1371 pg/mL (232-1245) H 05/13/25 05:17 Folate 5.1 ng/mL (4.8-37.3) 05/14/25 06:39 Procalcitonin 0.23 ng/mL (0-0.5) 05/13/25 05:17 TSH 1.43 uIU/mL (0.27-4.20) 05/13/25 05:17 Urine Color Yellow (Yellow) 05/13/25 13:05 Urine Appearance Clear (CLEAR) 05/13/25 13:05 Urine pH 5.0 (5-7) 05/13/25 13:05 Ur Specific [place] 1.019 (1.005-1.030) 05/13/25 13:05 Urine Protein 1+ (Negative) A 05/13/25 13:05 Urine Glucose (UA) Negative (Normal) 05/13/25 13:05 Urine Ketones Negative (Negative) 05/13/25 13:05 Urine Blood Negative (Negative) 05/13/25 13:05 Urine Nitrate Negative (Negative) 05/13/25 13:05 Urine Bilirubin Negative (Negative) 05/13/25 13:05 Urine Urobilinogen 0.2 mg/dL (Negative) 05/13/25 13:05 Ur Leukocyte Esterase 1+ (Negative) A 05/13/25 13:05 Urine RBC 0-2 /hpf (0-2) 05/13/25 13:05 Urine WBC 0-5 /hpf (0-5) 05/13/25 13:05 Ur Squamous Epith Cells 6-10 /hpf (0-5) 05/13/25 13:05 Amorphous Sediment Not Reportable 05/13/25 13:05 Urine Bacteria None seen /hpf (NONE) 05/13/25 13:05 Hyaline Casts 6.61 /lpf 05/13/25 13:05 Vancomycin Trough 18.0 ug/mL (10-15) H 05/18/25 18:25 Vitals Last Vital Signs Temp 98.6 F 05/19/25 11:51 Pulse 67 05/19/25 11:51 Resp 18 05/19/25 11:51 BP 146/76 05/19/25 11:51 Pulse Ox 93 05/19/25 11:51 O2 Del Method Room Air 05/19/25 11:51 O2 Flow Rate 8 05/18/25 14:00 Discharge Plan Discharge Patient Disposition: Home Condition: Stable Prescriptions: New metronidazole 500 mg tablet 500 mg PO BID 28 Days Qty: 56 0RF ciprofloxacin HCl 500 mg tablet 500 mg PO Q12H 28 Days Qty: 56 0RF doxycycline hyclate 100 mg capsule 100 mg PO Q12H 28 Days Qty: 56 0RF Continued (DME) Dexcom G7 Sql Server Architect Misc See Rx Instructions .Route Qty: 1 0RF Rx Instructions: 1 CGM and all required supplies As directed allopurinol 100 mg tablet 100 mg PO DAILY Qty: 90 3RF amlodipine 10 mg tablet 10 mg PO DAILY 90 Days Qty: 90 3RF atorvastatin 40 mg tablet 40 mg PO DAILY 90 Days Qty: 90 3RF clopidogrel 75 mg tablet 75 mg PO DAILY 90 Days Qty: 90 3RF famotidine 40 mg tablet 40 mg PO BID 90 Days Qty: 180 3RF furosemide 40 mg tablet 40 mg PO DAILY 90 Days Qty: 90 3RF labetalol 100 mg tablet 100 mg PO DAILY 90 Days Qty: 90 3RF loratadine 10 mg tablet 10 mg PO DAILY 90 Days Qty: 90 3RF ondansetron HCl 4 mg tablet 4 mg PO Q6H PRN (Reason: nausea and vomiting) Qty: 90 3RF pantoprazole [Protonix] 40 mg tablet,delayed release (DR/EC) 40 mg PO BID 90 Days Qty: 180 3RF tizanidine 4 mg tablet 4 mg PO .QHS PRN (Reason: muscle spasticity) 90 Days Qty: 90 3RF hydrocodone-acetaminophen 5-325 mg tablet 1 tab PO Q8H PRN (Reason: Pain) spironolacton-hydrochlorothiaz 25-25 mg tablet 1 tab PO DAILY Humulin N NPH U-100 Insulin 100 unit/mL Suspension 10 unit SUBCUT .@NOON Novolin R Regular U100 Insulin 100 unit/mL Solution 10 unit SUBCUT DAILY Discontinued amoxicillin-pot clavulanate 875-125 mg tablet 1 tab PO BID Cut Off Saw Operator Pipe Blanks OK for DC: Infectious Disease and Podiatry Discharge Order = DC NOW: Discharge Order (Routine); Ordered 05/19/25 Ordered By: Elaina Berman Referrals: [facility] [Provider Group, Infectious Disease] - 06/18/25 11:30 am Preeti Silva NP [Primary Care Provider, Family Practice] - 2 weeks Referral Note: post discharge follow up Jaya Hernandez DPM [Physician, Podiatry] - 05/25/25 3:00 pm Referral Note: post discharge follow up Discharge Diet: Advance as tolerated and Diabetic Discharge Activity: Limit activity as instructed Patient Instructions: Cellulitis, Ciprofloxacin (By mouth), Doxycycline (By mouth), Metronidazole (By mouth) (Flag Raulyl 375, Flagyl ER, Likmez), Acute Wound Care (DC), Opioid Safety, Post Anesthesia Care, Patient Portal & Gina Instructions Activity Restrictions/Additional Instructions: PODIATRY DISCHARGE INSTRUCTIONS--DR. HERNANDEZ -Dressing changes: Leave surgical dressing clean, dry, intact. Should dressing become wet or soiled contact podiatry clinic -Follow up: Within 7 days of discharge from hospital with Dr. Jaya Hernandez -Weightbearing status: Weightbearing as tolerated to operative extremity for transfers -Antibiotics: Per infectious disease -Please contact podiatry clinic at [phone] with any questions regarding patient's discharge Discharge Attestations Time Spent in Discharge Care*: greater than 30 min Specific Discharge Activities: educating patient, educating and/or supporting family/caregiver, discussing with pcp/other providers, discussing with employment evaluator/case manager/social workers/dc planners, documenting/other paperwork and evaluating patient/reviewing data Status at Discharge: Cognitive status at discharge: cognitively intact , Behavioral status at discharge: cooperative , Functional status at discharge: other assisted ambulation , Overall status at discharge: patient is progressing back to baseline Quality Metrics Clinical Quality Measures [ No reported AMI, CVA or VTE this stay] Coding Level of Care Code Acute Code for g Fwd Diagnoses Osteomyelitis M86.9 Foot abscess L02.619 Tenosynovitis M65.90 Type 2 diabetes mellitus with diabetic neuropathy E11.40 Hyperlipidemia E78.5 Hypertension I10 PAD (peripheral artery disease) I73.9
[2025-05-19 13:37] VITALS: BP 146/76; PULSE 67; RESP 16; TEMP 36.9; O2SAT 93
--- NOTE | 2025-05-28 12:13 | PM.MISC ---
Miscellaneous Note Purpose of Documentation: Follow-up for pathology report of right toe infection status post amputation Pathology report shows acute osteomyelitis with negative margins for osteomyelitis and malignancy Note: Patient was already being treated for osteomyelitis and was discharged on appropriate antibiotics as per plan from the infectious disease. Patient was informed about her diagnosis and the management was delivered according to the recommendation and guidelines. Patient agreed with the plan of care and to follow as outpatient with the podiatry and rest of referrals for optimization of healthcare.
== END 2025-05-19 13:40 | disposition home or self-care (01) | DRG 617 ==
LOC: ER 20:06 → MEDSURG 21:44
PROVIDERS: Internal Medicine; Physician Assistant; Podiatrist Foot & Ankle Surgery; Student in an Organized Health Care Education/Training Program; Admitting Provider Internal Medicine; Emergency Provider Family Medicine; PCP Nurse Practitioner Family; Visit Provider Student in an Organized Health Care Education/Training Program
PROC: 0Y6P0Z0 Detachment at Right 1st Toe, Complete, Open Approach (ICD-10-PCS; CPT 28810; principal; 2025-05-14 12:00)
PROC: 0JBQ0ZZ Excision of Right Foot Subcutaneous Tissue and Fascia, Open Approach (ICD-10-PCS; CPT 13160; principal; 2025-05-18 12:20)
DX: E11.621 Type 2 diabetes mellitus with foot ulcer (principal); L02.611 Cutaneous abscess of right foot; L03.115 Cellulitis of right lower limb; M86.171 Other acute osteomyelitis, right ankle and foot; E11.40 Type 2 diabetes mellitus with diabetic neuropathy, unspecified; E78.5 Hyperlipidemia, unspecified; E11.51 Type 2 diabetes mellitus with diabetic peripheral angiopathy without gangrene; L97.519 Non-pressure chronic ulcer of other part of right foot with unspecified severity; E11.69 Type 2 diabetes mellitus with other specified complication; E11.22 Type 2 diabetes mellitus with diabetic chronic kidney disease; N18.4 Chronic kidney disease, stage 4 (severe); I12.9 Hypertensive chronic kidney disease with stage 1 through stage 4 chronic kidney disease, or unspecified chronic kidney disease; Z87.891 Personal history of nicotine dependence; Z79.4 Long term (current) use of insulin; Z90.49 Acquired absence of other specified parts of digestive tract; M65.971 Unspecified synovitis and tenosynovitis, right ankle and foot; B95.62 Methicillin resistant Staphylococcus aureus infection as the cause of diseases classified elsewhere; B96.5 Pseudomonas (aeruginosa) (mallei) (pseudomallei) as the cause of diseases classified elsewhere
CPT/HCPCS: 36415; 36416; 73630; 73718; 80048; 80053; 80202; 81001; 82550; 82607; 82746; 82962; 83036; 83540; 83550; 83605; 83735; 84100; 84145; 84443; 85025; 85651; 86140; 86403; 87040; 87070; 87075; 87077; 87186; 87205; 88305; 88311; 93005; 96365; 96372; 97110; 97161; 97165; 97530; 99285; J0692; J1644; J1815; J2270; J2405; J2543; J2704; J3010; J3373; J3475; J3490; J7030; J7050; J9999

== ENCOUNTER → 2025-05-25 13:36 | Outpatient (BNVA) | payer MEDICARE, SELFPAY | PROVIDERS: PCP Nurse Practitioner Family; Visit Provider Podiatrist Foot & Ankle Surgery | DX: E11.40 Type 2 diabetes mellitus with diabetic neuropathy, unspecified (principal); E11.621 Type 2 diabetes mellitus with foot ulcer; E11.69 Type 2 diabetes mellitus with other specified complication; Z89.411 Acquired absence of right great toe; L97.519 Non-pressure chronic ulcer of other part of right foot with unspecified severity; M86.8X7 Other osteomyelitis, ankle and foot; Z79.4 Long term (current) use of insulin | CPT/HCPCS: 99024 ==

== ENCOUNTER → 2025-06-02 12:15 | Outpatient (BNVA) | payer MEDICARE, SELFPAY | PROVIDERS: PCP Nurse Practitioner Family; Visit Provider Podiatrist Foot & Ankle Surgery | DX: E11.40 Type 2 diabetes mellitus with diabetic neuropathy, unspecified (principal); E11.621 Type 2 diabetes mellitus with foot ulcer; E11.69 Type 2 diabetes mellitus with other specified complication; T87.81 Dehiscence of amputation stump; Y83.8 Other surgical procedures as the cause of abnormal reaction of the patient, or of later complication, without mention of misadventure at the time of the procedure; L97.514 Non-pressure chronic ulcer of other part of right foot with necrosis of bone; M86.8X7 Other osteomyelitis, ankle and foot; Z79.4 Long term (current) use of insulin | CPT/HCPCS: 99214 ==